=== PATIENT | male | born 1965 | race Caucasian/White ===

== ENCOUNTER → 2020-03-07 08:11 | Outpatient (BNVA) | payer OTHER, SELFPAY | PROVIDERS: Visit Provider Nurse Practitioner Family | DX: Z76.89 Persons encountering health services in other specified circumstances (principal) ==

== ENCOUNTER → 2020-03-17 11:04 | Outpatient (BNVA) | payer OTHER, SELFPAY | PROVIDERS: PCP Internal Medicine; Referring Provider Internal Medicine; Visit Provider Internal Medicine Endocrinology, Diabetes & Metabolism | DX: E11.65 Type 2 diabetes mellitus with hyperglycemia (principal); E11.21 Type 2 diabetes mellitus with diabetic nephropathy; E11.42 Type 2 diabetes mellitus with diabetic polyneuropathy; Z79.4 Long term (current) use of insulin; E78.5 Hyperlipidemia, unspecified; I10 Essential (primary) hypertension; E55.9 Vitamin D deficiency, unspecified | CPT/HCPCS: 82947; 99212 ==

== ENCOUNTER → 2020-05-16 08:31 | Outpatient (BNVA) | payer OTHER, SELFPAY | PROVIDERS: PCP Internal Medicine; Visit Provider Nurse Practitioner Family | DX: Z13.89 Encounter for screening for other disorder (principal) | CPT/HCPCS: 99212 ==

== ENCOUNTER → 2020-08-09 09:31 | Outpatient (BNVA) | payer OTHER, SELFPAY | PROVIDERS: PCP Internal Medicine; Visit Provider Dietitian, Registered | DX: E11.21 Type 2 diabetes mellitus with diabetic nephropathy (principal) | CPT/HCPCS: 97803 ==

== ENCOUNTER 2020-08-15 08:50 | Outpatient (REF) | payer OTHER, SELFPAY ==
[2020-08-15 10:33] LABS: MANUAL DIFF FLAG NO
[2020-08-15 10:50] LABS: Basophils Percent Auto 0.3 % (0-2); Eosinophils Absolute Auto 0.1 X10*3/uL (0.0-0.4); Eosinophils Percent Auto 0.9 % (0-4); Hematocrit 41.2 % (42-52); Hemoglobin 13.4 g/dl (14.0-18.0); Imm Gran Abs Auto 0.03 X10*3/uL (0.00-0.03); Imm Gran Pct Auto 0.4 % (0.0-0.4); Lymphocytes Absolute Auto 1.9 X10*3/uL (1.2-4.9); Lymphocytes Percent Auto 24.3 % (20-40); Mean Corpuscular HGB Conc 32.5 g/dl (31.0-36.0); Mean Corpuscular Hemoglobin 28.7 pg (27.0-33.0); Mean Corpuscular Volume 88.2 fL (80-98); Mean Platelet Volume 10.5 fL (9.4-12.4); Monocytes Absolute Auto 0.4 X10*3/uL (0.1-1.2); Monocytes Percent Auto 5.3 % (2-11); Neutrophils Absolute Auto 5.2 X10*3/uL (2.0-8.3); Neutrophils Percent Auto 68.8 % (45-73); Platelet Count 156 X10*3/uL (160-400); Red Blood Count 4.67 X10*6/uL (4.60-5.80); Red Cell Distribution Width 13.2 % (11.0-16.0); White Blood Count 7.6 X10*3/uL (4.8-10.8)
[2020-08-15 10:56] LABS: Estimated Average Glucose 174 mg/dL; Hemoglobin A1c % 7.7 %
[2020-08-15 11:08] LABS: Alanine Aminotransferase 24 U/L (0-40); Albumin Level 3.7 g/dL (3.5-5.0); Alkaline Phosphatase 105 U/L (39-117); Anion Gap 13 (12-20); Aspartate Amino Transferase 19 U/L (5-37); Bilirubin Total 0.9 mg/dL (0.0-1.0); Blood Urea Nitrogen 18 mg/dL (9-16); Calcium 9.4 mg/dL (8.4-10.2); Carbon Dioxide 26 mmol/L (22-29); Chloride 104 mmol/L (96-108); Cholesterol 167 mg/dL; Estimated Glomerular Filt Rate > 60; Glucose Random 148 mg/dL (60-115); HDL Cholesterol 35 mg/dL; LDL Cholesterol Calculated 108 mg/dl; Potassium 3.9 mmol/L (3.3-5.1); Sodium 139 mmol/L (135-145); Total Protein 7.8 g/dL (6.5-8.0); Triglycerides 122 mg/dL
[2020-08-15 11:27] LABS: Vitamin B12 466 pg/mL (200-900)
[2020-08-15 11:29] LABS: Vitamin D 25-OH Total 21.4 ng/mL (>30)
[2020-08-15 11:50] LABS: Creatinine Urine 145.47 mg/dL; Microalbum/Creatinine Ratio Ur 47.4 ug/mg cr
[2020-08-16 12:44] LABS: LDL Cholesterol Direct 115 mg/dL (<100)
== END 2020-08-15 08:51 | disposition home or self-care (01) ==
LOC: HO.LAB 08:50
PROVIDERS: Absent Provider Internal Medicine Endocrinology, Diabetes & Metabolism; PCP Internal Medicine; Visit Provider Nurse Practitioner Family
DX: E11.65 Type 2 diabetes mellitus with hyperglycemia (principal); E11.42 Type 2 diabetes mellitus with diabetic polyneuropathy; E11.21 Type 2 diabetes mellitus with diabetic nephropathy; I10 Essential (primary) hypertension; E78.5 Hyperlipidemia, unspecified; E66.01 Morbid (severe) obesity due to excess calories; E55.9 Vitamin D deficiency, unspecified; G47.33 Obstructive sleep apnea (adult) (pediatric); Z79.4 Long term (current) use of insulin; Z79.899 Other long term (current) drug therapy
CPT/HCPCS: 99213; 36415; 80053; 80061; 82043; 82306; 82607; 82947; 83036; 83721; 85025; 99212

== ENCOUNTER → 2020-09-06 09:36 | Outpatient (BNVA) | payer OTHER, SELFPAY | PROVIDERS: PCP Internal Medicine; Visit Provider Dietitian, Registered | DX: E11.21 Type 2 diabetes mellitus with diabetic nephropathy (principal) | CPT/HCPCS: 97803 ==

== ENCOUNTER → 2020-11-16 14:32 | Outpatient (BNVA) | payer OTHER, SELFPAY | PROVIDERS: PCP Internal Medicine; Visit Provider Dietitian, Registered | DX: E11.21 Type 2 diabetes mellitus with diabetic nephropathy (principal) | CPT/HCPCS: 97803 ==

== ENCOUNTER → 2021-01-18 08:56 | Outpatient (BNVA) | payer OTHER, SELFPAY | PROVIDERS: PCP Internal Medicine; Visit Provider Dietitian, Registered | DX: E11.21 Type 2 diabetes mellitus with diabetic nephropathy (principal) | CPT/HCPCS: 97803 ==

== ENCOUNTER → 2021-01-22 14:08 | Outpatient (BNVA) | payer OTHER, SELFPAY | PROVIDERS: PCP Internal Medicine; Visit Provider Nurse Practitioner Gerontology | DX: E11.65 Type 2 diabetes mellitus with hyperglycemia (principal); E11.42 Type 2 diabetes mellitus with diabetic polyneuropathy; E11.21 Type 2 diabetes mellitus with diabetic nephropathy; E78.5 Hyperlipidemia, unspecified; I10 Essential (primary) hypertension; Z79.4 Long term (current) use of insulin; E66.01 Morbid (severe) obesity due to excess calories; E55.9 Vitamin D deficiency, unspecified; B35.9 Dermatophytosis, unspecified | CPT/HCPCS: 82947; 83036; 99212 ==

== ENCOUNTER → 2021-04-20 09:21 | Outpatient (BNVA) | payer OTHER, SELFPAY | PROVIDERS: PCP Internal Medicine; Visit Provider Dietitian, Registered | DX: E11.21 Type 2 diabetes mellitus with diabetic nephropathy (principal) | CPT/HCPCS: 97803 ==

== ENCOUNTER → 2021-06-28 09:31 | Outpatient (BNVA) | payer OTHER, SELFPAY | PROVIDERS: PCP Internal Medicine; Visit Provider Nurse Practitioner Gerontology | DX: E11.65 Type 2 diabetes mellitus with hyperglycemia (principal); E11.42 Type 2 diabetes mellitus with diabetic polyneuropathy; E11.21 Type 2 diabetes mellitus with diabetic nephropathy; E78.5 Hyperlipidemia, unspecified; E55.9 Vitamin D deficiency, unspecified; E66.01 Morbid (severe) obesity due to excess calories; I10 Essential (primary) hypertension; Z79.4 Long term (current) use of insulin; Z68.43 Body mass index [BMI] 50.0-59.9, adult | CPT/HCPCS: 82947; 83036; 99212 ==

== ENCOUNTER → 2021-07-17 11:37 | Outpatient (BNVA) | payer OTHER, SELFPAY | PROVIDERS: PCP Internal Medicine; Referring Provider Internal Medicine; Visit Provider Nurse Practitioner Family | DX: Z13.89 Encounter for screening for other disorder (principal) ==

== ENCOUNTER → 2021-07-20 10:45 | Outpatient (BNVA) | payer OTHER, SELFPAY | PROVIDERS: PCP Internal Medicine; Visit Provider Dietitian, Registered | DX: E11.21 Type 2 diabetes mellitus with diabetic nephropathy (principal); Z71.3 Dietary counseling and surveillance | CPT/HCPCS: 97803 ==

== ENCOUNTER → 2021-08-31 10:29 | Outpatient (BNVA) | payer OTHER, SELFPAY | PROVIDERS: PCP Internal Medicine; Visit Provider Dietitian, Registered | DX: E11.21 Type 2 diabetes mellitus with diabetic nephropathy (principal) | CPT/HCPCS: 97803 ==

== ENCOUNTER → 2021-10-16 10:32 | Outpatient (BNVA) | payer OTHER, SELFPAY | PROVIDERS: PCP Internal Medicine; Visit Provider Nurse Practitioner Family | DX: G47.33 Obstructive sleep apnea (adult) (pediatric) (principal); E66.01 Morbid (severe) obesity due to excess calories; Z68.35 Body mass index [BMI] 35.0-35.9, adult | CPT/HCPCS: 99212 ==

== ENCOUNTER → 2021-10-23 11:04 | Outpatient (BNVA) | payer OTHER, SELFPAY | PROVIDERS: PCP Internal Medicine; Visit Provider Dietitian, Registered | DX: E11.21 Type 2 diabetes mellitus with diabetic nephropathy (principal) | CPT/HCPCS: 97803 ==

== ENCOUNTER 2022-01-28 10:41 | Outpatient (REF) | payer OTHER, SELFPAY ==
[2022-01-28 11:52] LABS: Estimated Average Glucose 252 mg/dL; Hemoglobin A1c % 10.4 %
[2022-01-28 12:24] LABS: Cholesterol 158 mg/dL; Glucose Fasting 220 mg/dL (60-99); HDL Cholesterol 39 mg/dL; LDL Cholesterol Calculated 90 mg/dl; Triglycerides 147 mg/dL
== END 2022-01-28 10:42 | disposition home or self-care (01) ==
LOC: HO.LAB 10:41
PROVIDERS: PCP Internal Medicine; Visit Provider Internal Medicine
DX: E78.5 Hyperlipidemia, unspecified (principal); E11.65 Type 2 diabetes mellitus with hyperglycemia
CPT/HCPCS: 36415; 80061; 82947; 83036

== ENCOUNTER 2022-07-29 16:45 | Outpatient (REF) | payer OTHER, SELFPAY ==
[2022-07-29 17:23] LABS: MANUAL DIFF FLAG NO
[2022-07-29 18:00] LABS: Basophils Percent Auto 0.2 % (0-2); Eosinophils Percent Auto 0.4 % (0-4); Hematocrit 45.2 % (42.0-52.0); Hemoglobin 14.7 g/dl (14.0-18.0); Imm Gran Abs Auto 0.03 X10*3/uL (0.00-0.03); Imm Gran Pct Auto 0.3 % (0.0-0.4); Lymphocytes Absolute Auto 2.9 X10*3/uL (1.2-4.9); Lymphocytes Percent Auto 26.4 % (20-40); Mean Corpuscular HGB Conc 32.5 g/dl (31.0-36.0); Mean Corpuscular Hemoglobin 29.7 pg (27.0-33.0); Mean Corpuscular Volume 91.3 fL (80.0-98.0); Mean Platelet Volume 10.5 fL (9.4-12.4); Monocytes Absolute Auto 0.6 X10*3/uL (0.1-1.2); Monocytes Percent Auto 5.4 % (2-11); Neutrophils Absolute Auto 7.3 x10*3/uL (2.0-8.3); Neutrophils Percent Auto 67.3 % (45-73); Platelet Count 162 X10*3/uL (160-400); Red Blood Count 4.95 X10*6/uL (4.60-5.80); Red Cell Distribution Width 13.1 % (11.0-16.0); White Blood Count 10.8 X10*3/uL (4.8-10.8)
[2022-07-29 18:36] LABS: Alanine Aminotransferase 21 U/L (0-40); Albumin Level 3.7 g/dL (3.5-5.0); Alkaline Phosphatase 104 U/L (39-117); Anion Gap 13 (12-20); Aspartate Amino Transferase 23 U/L (5-37); Bilirubin Total 1.1 mg/dL (0.0-1.0); Blood Urea Nitrogen 13 mg/dL (9-16); Calcium 8.9 mg/dL (8.4-10.2); Carbon Dioxide 27 mmol/L (22-29); Chloride 105 mmol/L (96-108); Cholesterol 147 mg/dL; Estimated Glomerular Filt Rate > 60; Glucose Fasting 124 mg/dL (60-99); HDL Cholesterol 41 mg/dL; LDL Cholesterol Calculated 88 mg/dl; Potassium 4.2 mmol/L (3.3-5.1); Sodium 141 mmol/L (135-145); Total Protein 8.1 g/dL (6.5-8.0); Triglycerides 92 mg/dL
[2022-07-29 18:57] LABS: Microalbum/Creatinine Ratio Ur 15.8 ug/mg cr
[2022-07-30 05:36] LABS: Estimated Average Glucose 252 mg/dL; Hemoglobin A1c % 10.4 %
== END 2022-07-29 16:46 | disposition home or self-care (01) ==
LOC: HO.LAB 16:45
PROVIDERS: PCP Internal Medicine; Visit Provider Internal Medicine
DX: E11.69 Type 2 diabetes mellitus with other specified complication (principal); D64.9 Anemia, unspecified; N28.9 Disorder of kidney and ureter, unspecified; E78.5 Hyperlipidemia, unspecified; E66.01 Morbid (severe) obesity due to excess calories
CPT/HCPCS: 36415; 80053; 80061; 82043; 83036; 85025

== ENCOUNTER 2022-10-30 10:27 | Outpatient (AMB) | payer OTHER, SELFPAY ==
--- NOTE | 2022-10-30 10:29 | A.OFFPC_ITS ---
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 Allergies exenatide [Bydureon] Allergy (Unknown, Verified 10/30/22 10:29) welts, vomiting iodine Allergy (Unknown, Verified 10/30/22 10:29) vomiting lisinopril Allergy (Unknown, Verified 10/30/22 10:29) cough vancomycin [VANCOMYCIN] Allergy (Unknown, Verified 10/30/22 10:29) UNKNOWN Insulin Allergy (Unknown, Uncoded 10/16/21 10:41) swelling Medication List - Last Reconciled 10/30/22 by Ernesto Salter MD amlodipine 10 mg PO DAILY atorvastatin 80 mg PO BEDTIME 30 days blood sugar diagnostic (FreeStyle Lite Strips) As directed three times a day cephalexin 500 mg PO TID cholecalciferol (vitamin D3) (Vitamin D3) 125 mcg PO DAILY dulaglutide (Trulicity) 1.5 mg (0.5 mL) topical QWEEK flash glucose scanning reader ([employer] Caroline 14 Day [place]) As directed flash glucose sensor (FreeStyle Caroline 14 Day Sensor kit) 1 ea topical Q2W insulin degludec (Tresiba FlexTouch U-200 insulin) 30 units (0.15 mL) subcut BEDTIME 30 days lancets (FreeStyle Lancets) 4 times a day losartan-hydrochlorothiazide 100-12.5 mg 1 tab PO DAILY metformin 500 mg (5 mL) PO ONCE pen needle, diabetic (BD Ultra-Fine Isabel Pen Needle) As directed four times a day Tobacco use date assessed: 04/30/22 Dental Screening Dental Screen Date: 10/30/22 Did you have a dental visit in the last 12 months?: Yes Did you have a dental problem in the last 6 months where you did not have access to dental care?: No Was dental information given to patient?: Patient has dentist HPI 3 month f/u HPI Details HTN Hyperlip and poorly controlled DM; discharged from our endo service [facility] Medical History Diabetes mellitus Diabetes type 2, uncontrolled Diabetic nephropathy associated with type 2 diabetes mellitus Diabetic polyneuropathy associated with type 2 diabetes mellitus Dyslipidemia Hypertension skilled nursing (current) use of insulin Microalbuminuria Morbid obesity due to excess calories Vitamin D deficiency Surgical History No pertinent past surgical history Family History Father CVD (cardiovascular disease) Mother No problems noted. Brother Past heart attack Social History Household Members: None Housing: Apartment Alcohol intake: never Patient Tobacco Use Status: Never used Tobacco e-Cigarette/Vaping Use: Never Used Second Hand Smoke Exposure: No service: No Current occupational status: unemployed and disabled Cognitive needs: Yes (cane) Hearing needs: No Vision needs: Yes (reading) Questionnaire PHQ-9 Over the last 2 weeks, how often have you been bothered by any of the following problems? Depression Screening Interpretation: Negative Source: Developed by Drs. Huseyin Holt, Alyson Banda, Colin Ragland and colleagues, with an educational madeline from [employer]. Thrive Questionnaire Date Thrive assessed: 04/30/22 Currently or been in a relationship where the following occur: no concerns reported EMMANUELLE-7 AMB Questionnaire EMMANUELLE-7 Date EMMANUELLE - 7 assessed: 04/30/22 Source: Developed by Drs. Huseyin Holt, Alyson Banda, Colin Ragland and colleagues, with an educational madeline from [employer]. Review of Systems Const Denies chills, Denies headache(s) and Denies weight loss ENT Denies headache(s) Card Denies chest pain, Denies syncope, Denies irregular heart rhythm and Denies dyspnea Resp Denies chest congestion, Denies cough and Denies dyspnea GI Denies abdominal pain, Denies change in stool character, Denies nausea and Denies vomiting Musc Denies deformity and Denies joint swelling Neuro Denies syncope and Denies headache(s) Physical exam (Primary Care) Vital Signs: Last Vital Signs Pulse 86 10/30/22 10:30 BP 136/80 10/30/22 10:30 Pulse Ox 97 10/30/22 10:30 BMI result Body Mass Index 53.0 morbid obesity BMI Assessment/Plan discussion: High BMI High, discussed plan: lifestyle, weight reduction, dietary and physical activity Tobacco/Smoking Status: Tobacco use Status Tobacco use date assessed 04/30/22 10/30/22 10:29 Patient Tobacco Use Status Never used Tobacco 10/30/22 10:29 e-Cigarette/Vaping Use Never Used 10/30/22 10:29 Depression Screening Interpretation: Negative Thrive Assessment: Date of Thrive Assessment Date Thrive assessed 04/30/22 10/30/22 10:29 Currently or been in a relationship where the following occur: no concerns reported Const General: cooperative and no acute distress Resp Effort & Inspection: normal respiratory effort Auscultation: clear to auscultation bilaterally Percussion: percussion normal Cardio Jugular venous distension: no JVD Rate: regular rate Rhythm: regular rhythm GI Inspection: Yes normal to inspection Results AMB Hemoglobin A1c AMB Hemoglobin A1c 10.4 % Last Edit by Arturo Fuentes CMA on 10/30/22 10 :50 Results Reviewed Results Reviewed: Laboratory Last Values Hgb A1c (Clinic) 10.4 % (4.0-6.0) H 10/30/22 10:49 Assessment and Plan Assessment & Plan (1) Diabetes type 2, uncontrolled: Code(s): E11.65 - Type 2 diabetes mellitus with hyperglycemia Plan: ref endo (2) Dyslipidemia: Code(s): E78.5 - Hyperlipidemia, unspecified Plan: stable; same rx (3) Hypertension: Code(s): I10 - Essential (primary) hypertension Plan: stable; same rx Orders: Orders Comprehensive [place]. Panel Fast Today N28.9 - Disorder of kidney and ureter, unspecified Hemoglobin A1c Today R73.9 - Hyperglycemia, unspecified Lipid Panel Today E78.5 - Hyperlipidemia, unspecified Microalbumin, Random (w Creat) Today E11.69 - Type 2 diabetes mellitus with other specified complication, E66.01 - Morbid (severe) obesity due to excess calories Complete Blood Count Auto Diff Today D64.9 - Anemia, unspecified AMB Hemoglobin A1c Today E11.21 - Type 2 diabetes mellitus with diabetic nephropathy, E11.65 - Type 2 diabetes mellitus with hyperglycemia Referrals Endocrinology Referral E11.9 - Type 2 diabetes mellitus without complications Medications: Refilled dulaglutide (Trulicity) 1.5 mg (0.5 mL) topical QWEEK 2 mL 2RF E11.65 - Type 2 diabetes mellitus with hyperglycemia Coding Level of Care Code Est Pt Level 4 (14984) Diagnoses Diabetes type 2, uncontrolled E11.65 Dyslipidemia E78.5 Hypertension I10
[2022-10-30 10:30] VITALS: BP 136/80; PULSE 86; O2SAT 97; BMI 53.0
== END 2022-10-30 11:08 | disposition home or self-care (01) ==
PROVIDERS: PCP Internal Medicine; Visit Provider Internal Medicine
DX: E11.65 Type 2 diabetes mellitus with hyperglycemia (principal); E78.5 Hyperlipidemia, unspecified; I10 Essential (primary) hypertension; E11.21 Type 2 diabetes mellitus with diabetic nephropathy
CPT/HCPCS: 83036; 99214

== ENCOUNTER 2023-01-30 10:37 | Outpatient (AMB) | payer OTHER, SELFPAY ==
[2023-01-30 10:39] VITALS: BP 156/90; PULSE 100; O2SAT 98; BMI 50.8
--- NOTE | 2023-01-30 10:39 | A.OFFPC_ITS ---
Vital Signs 01/30/23 10:39 Height 5 ft 9 in Weight 344 lb BMI 50.8 BP 156/90 H Blood Pressure Location Lt brachial Position Sitting Pulse 100 Pulse Source Pulse Oximeter Pulse Oximetry (%) 98 Oxygen Delivery Method Room Air Intake Visit Reasons: 3 month f/u Allergies exenatide [Bydureon] Allergy (Unknown, Verified 01/30/23 10:40) welts, vomiting iodine Allergy (Unknown, Verified 01/30/23 10:40) vomiting lisinopril Allergy (Unknown, Verified 01/30/23 10:40) cough vancomycin [VANCOMYCIN] Allergy (Unknown, Verified 01/30/23 10:40) UNKNOWN Insulin Allergy (Unknown, Uncoded 01/30/23 10:40) swelling Medication List - Last Reconciled 01/30/23 by Ernesto Salter MD amlodipine 10 mg PO DAILY atorvastatin 80 mg PO BEDTIME 30 days blood sugar diagnostic (FreeStyle Lite Strips) As directed three times a day cholecalciferol (vitamin D3) (Vitamin D3) 125 mcg PO DAILY dulaglutide (Trulicity) 1.5 mg (0.5 mL) topical QWEEK flash glucose scanning reader ([employer]Style Caroline 14 Day [place]) As directed flash glucose sensor (FreeStyle Caroline 14 Day Sensor kit) 1 ea topical Q2W insulin degludec (Tresiba FlexTouch U-200 insulin) 30 units (0.15 mL) subcut BEDTIME 30 days lancets (FreeStyle Lancets) 4 times a day losartan-hydrochlorothiazide 100-12.5 mg 1 tab PO DAILY pen needle, diabetic (BD Ultra-Fine Isabel Pen Needle) As directed four times a day Tobacco use date assessed: 04/30/22 Dental Screening Dental Screen Date: 01/30/23 Did you have a dental visit in the last 12 months?: Yes Did you have a dental problem in the last 6 months where you did not have access to dental care?: No Was dental information given to patient?: Patient has dentist HPI 3 month f/u HPI Details DM HTN and hyperlipidemia; doing well; due for labs [facility] Medical History (Updated 01/30/23 @ 10:59 by Ernesto Salter MD) Diabetic polyneuropathy associated with type 2 diabetes mellitus Morbid obesity due to excess calories Vitamin D deficiency Hypertension Dyslipidemia Diabetic nephropathy associated with type 2 diabetes mellitus [facility] (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 Brother Past heart attack Social History Household Members: None Housing: Apartment Alcohol intake: never Patient Tobacco Use Status: Never used Tobacco e-Cigarette/Vaping Use: Never Used Second Hand Smoke Exposure: No service: No Current occupational status: unemployed and disabled Cognitive needs: Yes (cane) Hearing needs: No Vision needs: Yes (reading) Questionnaire PHQ-9 Over the last 2 weeks, how often have you been bothered by any of the following problems? 1. Little interest or pleasure in doing things: not at all 2. Feeling down, depressed, or hopeless: not at all 3. Trouble falling or staying asleep, or sleeping too much: not at all 4. Feeling tired or having little energy: not at all 5. Poor appetite or overeating: not at all 6. Feeling bad about yourself - or that you are a failure or have let yourself or your family down: not at all 7. Trouble concentrating on things, such as reading the newspaper or watching television: not at all 8. Moving or speaking so slowly that other people could have noticed. Or the opposite - being so fidgety or restless that you have been moving around a lot more than usual: not at all 9. Thoughts that you would be better off or of hurting yourself in some way: not at all Total score: 0 Depression Screening Interpretation: Negative Depression Screening Done: Yes Source: Developed by DrsNiall Holt, Alyson Banda, Coiln Ragland and colleagues, with an educational madeline from [employer]. Thrive Questionnaire Date Thrive assessed: 04/30/22 AUDIT C Alcohol Use Questionnaire (AUDIT-C) 1. How often do you have a drink containing alcohol?: Never Total Score: 0 Score Reviewed/Action Taken: Yes EMMANUELLE-7 AMB Questionnaire EMMANUELLE-7 Date EMMANUELLE - 7 assessed: 04/30/22 Source: Developed by Drs. Huseyin Holt, Alyson Banda, Colin Ragland and colleagues, with an educational madeline from [employer]. Review of Systems Const Denies chills, Denies headache(s) and Denies weight loss ENT Denies headache(s) Card Denies chest pain, Denies syncope, Denies irregular heart rhythm and Denies dyspnea Resp Denies chest congestion, Denies cough and Denies dyspnea GI Denies abdominal pain, Denies change in stool character, Denies nausea and Denies vomiting Musc Denies deformity and Denies joint swelling Neuro Denies syncope and Denies headache(s) Physical exam (Primary Care) Vital Signs: Last Vital Signs Pulse 100 01/30/23 10:39 BP 156/90 H 01/30/23 10:39 Pulse Ox 98 01/30/23 10:39 Oxygen Delivery Method Room Air 01/30/23 10:39 BMI result Body Mass Index 50.8 Tobacco/Smoking Status: Tobacco use Status Tobacco use date assessed 04/30/22 01/30/23 10:41 Patient Tobacco Use Status Never used Tobacco 01/30/23 10:41 e-Cigarette/Vaping Use Never Used 01/30/23 10:41 PHQ-9: PHQ-9 Score PHQ-9: Total score 0 01/30/23 10:41 Depression Screening Interpretation: Negative Thrive Assessment: Date of Thrive Assessment Date Thrive assessed 04/30/22 01/30/23 10:41 Const General: cooperative, comfortable, no acute distress and alert Neck Neck: Yes no lymphadenopathy Thyroid: Thyroid normal Resp Effort & Inspection: normal respiratory effort Auscultation: clear to auscultation bilaterally Percussion: percussion normal Cardio Jugular venous distension: no JVD Palpation: normal PMI Rate: regular rate Rhythm: regular rhythm Heart sounds: S1 normal heart sound present and S2 normal heart sound present GI Inspection: Yes normal to inspection Palpation (GI): No hepatosplenomegaly present Skin General skin exam: no rashes or lesions noted Extrem General: Yes no clubbing, cyanosis or edema Assessment and Plan Assessment & Plan (1) Hypertension: Code(s): I10 - Essential (primary) hypertension Plan: stable; same rx (2) Dyslipidemia: Code(s): E78.5 - Hyperlipidemia, unspecified Plan: stable; same rx (3) Diabetes mellitus with coincident hypertension: Code(s): E11.9 - Type 2 diabetes mellitus without complications; I10 - Essential (primary) hypertension Plan: stable; same rx Orders: Orders Lipid Panel Today E78.5 - Hyperlipidemia, unspecified Comprehensive [place]. Panel Fast Today N28.9 - Disorder of kidney and ureter, unsp ecified Complete Blood Count Auto Diff Today D64.9 - Anemia, unspecified Microalbumin, Random (w Creat) Today E11.69 - Type 2 diabetes mellitus with other specified complication, E66.01 - Morbid (severe) obesity due to excess calories AMB Hemoglobin A1c Today E11.65 - Type 2 diabetes mellitus with hyperglycemia Thyroid Stimulating Hormone Today E03.9 - Hypothyroidism, unspecified Hemoglobin A1c Today R73.9 - Hyperglycemia, unspecified Medications: Refilled flash glucose sensor (FreeStyle Caroline 14 Day Sensor kit) 1 ea topical Q2W 2 ea 11RF Coding Level of Care Code Est Pt Level 4 (50288) Diagnoses Hypertension I10 Dyslipidemia E78.5 Diabetes mellitus with coincident hypertension E11.9; I10
== END 2023-01-30 11:03 | disposition home or self-care (01) ==
PROVIDERS: PCP Internal Medicine; Visit Provider Internal Medicine
DX: I10 Essential (primary) hypertension (principal); E11.65 Type 2 diabetes mellitus with hyperglycemia; E66.01 Morbid (severe) obesity due to excess calories; Z68.43 Body mass index [BMI] 50.0-59.9, adult; E78.5 Hyperlipidemia, unspecified
CPT/HCPCS: 83036; 99214

== ENCOUNTER 2023-04-24 11:06 | Outpatient (AMB) | payer OTHER, SELFPAY ==
[2023-04-24 11:14] VITALS: BP 166/90; PULSE 85; O2SAT 98; BMI 52.0
--- NOTE | 2023-04-24 11:14 | MHC.PC.OV ---
Vital Signs 04/24/23 11:14 Height 5 ft 9 in Weight 352 lb BMI 52.0 BP 166/90 H Blood Pressure Location Lt brachial Position Sitting Pulse 85 Pulse Source Pulse Oximeter Pulse Oximetry (%) 98 Oxygen Delivery Method Room Air Intake Visit Reasons: 3 mth f/u Utility System Operator Required: No Gatehouse Attendant: Not Required per policy Accompanied by: Self / Same As Patient Allergies exenatide [Bydureon] Allergy (Unknown, Verified 04/24/23 11:14) welts, vomiting iodine Allergy (Unknown, Verified 04/24/23 11:14) vomiting lisinopril Allergy (Unknown, Verified 04/24/23 11:14) cough vancomycin [VANCOMYCIN] Allergy (Unknown, Verified 04/24/23 11:14) UNKNOWN Insulin Allergy (Unknown, Uncoded 04/24/23 11:14) swelling Medication List - Last Reconciled 04/25/23 by Ernesto Salter MD amlodipine 10 mg PO DAILY atorvastatin 80 mg PO DAILY blood sugar diagnostic (FreeStyle Lite Strips) As directed three times a day cholecalciferol (vitamin D3) (Vitamin D3) 125 mcg PO DAILY dulaglutide (Trulicity) 1.5 mg (0.5 mL) topical QWEEK flash glucose scanning reader ([employer] Caroline 14 Day [place]) As directed flash glucose sensor (FreeStyle Caroline 14 Day Sensor kit) 1 ea topical Q2W insulin degludec (Tresiba FlexTouch U-200 insulin) 30 units (0.15 mL) subcut BEDTIME 30 days lancets (FreeStyle Lancets) 4 times a day losartan-hydrochlorothiazide 100-12.5 mg 1 tab PO DAILY pen needle, diabetic (BD Ultra-Fine Isabel Pen Needle) As directed four times a day Tobacco use date assessed: 04/24/23 Dental Screening Dental Screen Date: 04/24/23 Did you have a dental visit in the last 12 months?: Yes Did you have a dental problem in the last 6 months where you did not have access to dental care?: No Was dental information given to patient?: Patient has dentist HPI 3 mth f/u HPI Details HTN hyperlip and DM on rx; stable and compliant [facility] Medical History Diabetic polyneuropathy associated with type 2 diabetes mellitus Morbid obesity due to excess calories Vitamin D deficiency Hypertension Dyslipidemia Diabetic 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 Brother Past heart attack Social History Household Members: None Housing: Apartment Alcohol intake: never Patient Tobacco Use Status: Never used Tobacco e-Cigarette/Vaping Use: Never Used Second Hand Smoke Exposure: No service: No Current occupational status: unemployed and disabled Cognitive needs: Yes (cane) Hearing needs: No Vision needs: Yes (reading) Questionnaire PHQ-9 Over the last 2 weeks, how often have you been bothered by any of the following problems? 1. Little interest or pleasure in doing things: not at all 2. Feeling down, depressed, or hopeless: not at all 3. Trouble falling or staying asleep, or sleeping too much: not at all 4. Feeling tired or having little energy: not at all 5. Poor appetite or overeating: not at all 6. Feeling bad about yourself - or that you are a failure or have let yourself or your family down: not at all 7. Trouble concentrating on things, such as reading the newspaper or watching television: not at all 8. Moving or speaking so slowly that other people could have noticed. Or the opposite - being so fidgety or restless that you have been moving around a lot more than usual: not at all 9. Thoughts that you would be better off or of hurting yourself in some way: not at all Total score: 0 Depression Screening Interpretation: Negative Depression Screening Done: Yes Source: Developed by Drs. Huseyin Holt, Alyson Banda, Colin Ragland and colleagues, with an educational madeline from [employer]. Thrive Questionnaire Date Thrive assessed: 04/24/23 I am a: Patient What is your living situation today?: I have a steady place to live Within the past 12 months, did the food you bought not last and you didn't have the money to get more?: Never true Within the past 12 months, did you worry whether your food would run out before you got money to buy more?: Never true Do you have trouble paying for medicines?: No Do you have trouble getting transportation to medical appointments?: No Do you have trouble paying your heating and electricity bill?: No Do you have trouble taking care of your child, family member or friend?: No Do you have trouble with day-to-day activities such as bathing, preparing meals, shopping, managing finances, etc.?: No Are you currently unemployed and looking for a job?: No Are you interested in more education?: No Please select the resources that you would like help with: None THRIVE Score: 0 AUDIT C Alcohol Use Questionnaire (AUDIT-C) 1. How often do you have a drink containing alcohol?: Never Total Score: 0 Score Reviewed/Action Taken: Yes EMMANUELLE-7 AMB Questionnaire EMMANUELLE-7 Date EMMANUELLE - 7 assessed: 05/08/22 Feeling nervous, anxious, or on edge: 0 = Not at all Not being able to stop or control worryin = Not at all Worrying too much about different things: 0 = Not at all Trouble relaxin = Not at all Being so restless that it is hard to sit still: 0 = Not at all Becoming easily annoyed or irritable: 0 = Not at all Feeling afraid as if something awful might happen: 0 = Not at all Total EMMANUELLE-7 score (0-4 normal; 5-9 mild; 10-14 moderate; 15-21 severe): 0 Source: Developed by Drs. Huseyin Holt, Alyson Banda, Colin Ragland and colleagues, with an educational madeline from [employer]. Review of Systems Const Denies chills, Denies headache(s) and Denies weight loss ENT Denies headache(s) Card Denies chest pain, Denies syncope, Denies irregular heart rhythm and Denies dyspnea Resp Denies chest congestion, Denies cough and Denies dyspnea GI Denies abdominal pain, Denies change in stool character, Denies nausea and Denies vomiting Musc Denies deformity and Denies joint swelling Neuro Denies syncope and Denies headache(s) Physical exam (Primary Care) Vital Signs: Last Vital Signs Pulse 85 04/24/23 11:14 BP 166/90 H 04/24/23 11:14 Pulse Ox 98 04/24/23 11:14 Oxygen Delivery Method Room Air 04/24/23 11:14 BMI result Body Mass Index 52.0 Tobacco/Smoking Status: Tobacco use Status Tobacco use date assessed 04/24/23 04/24/23 11:15 Patient Tobacco Use Status Never used Tobacco 04/24/23 11:15 e-Cigarette/Vaping Use Never Used 04/24/23 11:15 PHQ-9: PHQ-9 Score PHQ-9: Total score 0 04/24/23 13:19 Depression Screening Interpretation: Negative Thrive Assessment: Date of Thrive Assessment Date Thrive assessed 04/24/23 04/24/23 11:15 Const General: cooperative, comfortable, no acute distress and alert Neck Neck: Yes no lymphadenopathy Thyroid: Thyroid normal Resp Effort & Inspection: normal respiratory effort Auscultation: clear to auscultation bilaterally Percussion: percussion normal Cardio Jugular venous distension: no JVD Palpation: normal PMI Rate: regular rate Rhythm: regular rhythm Heart sounds: S1 normal heart sound present and S2 normal heart sound present GI Inspection: Yes normal to inspection Palpation (GI): No hepatosplenomegaly present Skin General skin exam: no rashes or lesions noted Extrem General: Yes no clubbing, cyanosis or edema Results AMB Hemoglobin A1c AMB Hemoglobin A1c 10.2 % Last Edit by SOFIA Arana on 04/24/23 11:27 Results Reviewed Results Reviewed: Laboratory Last Values Hgb A1c (Clinic) 10.2 % (4.0-6.0) H 04/24/23 11:16 Assessment and Plan Assessment & Plan (1) Diabetes mellitus with coincident hypertension: Code(s): E11.9 - Type 2 diabetes mellitus without complications; I10 - Essential (primary) hypertension Plan: stable; same rx (2) Hypertension: Code(s): I10 - Essential (primary) hypertension Plan: stable; same rx (3) Dyslipidemia: Code(s): E78.5 - Hyperlipidemia, unspecified Plan: stable; same rx Orders: Orders AMB Hemoglobin A1c 04/24/23 E11.9 - Type 2 diabetes mellitus without complications, I10 - Essential (primary) hypertension Lipid Panel 04/24/23 E78.5 - Hyperlipidemia, unspecified Thyroid Stimulating Hormone 04/24/23 E03.9 - Hypothyroidism, unspecified Complete Blood Count Auto Diff 04/24/23 D64.9 - Anemia, unspecified Testosterone, Free/Total 04/24/23 R68.82 - Decreased libido Comprehensive [place]. Panel Fast Today N28.9 - Disorder of kidney and ureter, unspecified Thyroid Stimulating Hormone Today E03.9 - Hypothyroidism, unspecified Comprehensive [place]. Panel Fast 04/24/23 N28.9 - Disorder of kidney and ureter, unspecified Lipid Panel Today E78.5 - Hyperlipidemia, unspecified Complete Blood Count Auto Diff Today D64.9 - Anemia, unspecified Medications: Refilled flash glucose scanning reader (FreeStyle Caroline 14 Day [place]) As directed 1 ea 0RF E11.65 - Type 2 diabetes mellitus with hyperglycemia flash glucose sensor (FreeStyle Caroline 14 Day Sensor kit) 1 ea topical Q2W 2 ea 11RF Coding Level of Care Code Tele Est Pt Level 4 (80668) Diagnoses Diabetes mellitus with coincident hypertension E11.9; I10 Hypertension I10 Dyslipidemia E78.5
== END 2023-04-24 11:34 | disposition home or self-care (01) ==
PROVIDERS: PCP Internal Medicine; Visit Provider Internal Medicine
DX: E11.9 Type 2 diabetes mellitus without complications (principal); I10 Essential (primary) hypertension
CPT/HCPCS: 83036; 99214

== ENCOUNTER 2023-07-22 13:30 | Outpatient (REF) | payer OTHER, SELFPAY ==
[2023-07-22 13:50] LABS: MANUAL DIFF FLAG NO
[2023-07-22 14:22] LABS: Basophils Percent Auto 0.3 % (0-2); Eosinophils Percent Auto 0.2 % (0-4); Hematocrit 43.5 % (42.0-52.0); Hemoglobin 14.4 g/dl (14.0-18.0); Imm Gran Abs Auto 0.02 X10*3/uL (0.00-0.03); Imm Gran Pct Auto 0.2 % (0.0-0.4); Lymphocytes Absolute Auto 2.4 X10*3/uL (1.2-4.9); Lymphocytes Percent Auto 27.1 % (20-40); Mean Corpuscular HGB Conc 33.1 g/dl (31.0-36.0); Mean Corpuscular Hemoglobin 29.8 pg (27.0-33.0); Mean Corpuscular Volume 90.1 fL (80.0-98.0); Mean Platelet Volume 10.9 fL (9.4-12.4); Monocytes Absolute Auto 0.5 X10*3/uL (0.1-1.2); Neutrophils Absolute Auto 5.7 x10*3/uL (2.0-8.3); Neutrophils Percent Auto 66.2 % (45-73); Platelet Count 146 X10*3/uL (160-400); Red Blood Count 4.83 X10*6/uL (4.60-5.80); Red Cell Distribution Width 13.3 % (11.0-16.0); White Blood Count 8.7 X10*3/uL (4.8-10.8)
[2023-07-22 14:45] LABS: Estimated Average Glucose 229 mg/dL; Hemoglobin A1c % 9.6 % (<6.0)
[2023-07-22 15:18] LABS: Creatinine Urine 264.65 mg/dL; Microalbum/Creatinine Ratio Ur 24.1 ug/mg cr (<30)
[2023-07-22 17:31] LABS: Alanine Aminotransferase 21 U/L (0-40); Albumin Level 3.6 g/dL (3.5-5.0); Alkaline Phosphatase 89 U/L (39-117); Anion Gap 10 (12-20); Aspartate Amino Transferase 22 U/L (5-37); Bilirubin Total 0.8 mg/dL (0.0-1.0); Blood Urea Nitrogen 15 mg/dL (9-16); Calcium 9.5 mg/dL (8.4-10.2); Carbon Dioxide 28 mmol/L (22-29); Chloride 105 mmol/L (96-108); Cholesterol 180 mg/dL (<200); Estimated Glomerular Filt Rate > 60; Glucose Fasting 158 mg/dL (60-99); HDL Cholesterol 40 mg/dL (>40); LDL Cholesterol Calculated 119 mg/dL (<100); Potassium 4.3 mmol/L (3.3-5.1); Sodium 139 mmol/L (135-145); Thyroid Stimulating Hormone 2.51 uIU/mL (0.32-4.0); Total Protein 8.4 g/dL (6.5-8.0); Triglycerides 105 mg/dL (<150)
[2023-07-26 19:09] LABS: Testosterone, Free 44.9 pg/mL (35.0-155.0); Testosterone, Total 362 ng/dL (250-1100)
== END 2023-07-22 13:31 | disposition home or self-care (01) ==
LOC: HO.LAB 13:30
PROVIDERS: PCP Internal Medicine; Visit Provider Internal Medicine
DX: E78.5 Hyperlipidemia, unspecified (principal); N28.9 Disorder of kidney and ureter, unspecified; D64.9 Anemia, unspecified; E11.69 Type 2 diabetes mellitus with other specified complication; E66.01 Morbid (severe) obesity due to excess calories; E03.9 Hypothyroidism, unspecified; R68.82 Decreased libido; E11.65 Type 2 diabetes mellitus with hyperglycemia
CPT/HCPCS: 36415; 80053; 80061; 82043; 82570; 83036; 84402; 84403; 84443; 85025

== ENCOUNTER 2023-07-24 11:30 | Outpatient (AMB) | payer OTHER, SELFPAY ==
[2023-07-24 11:31] VITALS: BP 150/78; PULSE 84; O2SAT 95; BMI 51.7
--- NOTE | 2023-07-24 11:31 | MHC.PC.OV ---
Vital Signs 07/24/23 11:31 Height 5 ft 9 in Weight 350 lb BMI 51.7 BP 150/78 H Blood Pressure Location Lt radial Position Sitting Pulse 84 Pulse Source Pulse Oximeter Pulse Oximetry (%) 95 Oxygen Delivery Method Room Air Intake Visit Reasons: 3mth f/u Student Assistance Counselor Required: No Allergies exenatide [Bydureon] Allergy (Unknown, Verified 04/24/23 11:14) welts, vomiting iodine Allergy (Unknown, Verified 04/24/23 11:14) vomiting lisinopril Allergy (Unknown, Verified 04/24/23 11:14) cough vancomycin [VANCOMYCIN] Allergy (Unknown, Verified 04/24/23 11:14) UNKNOWN Insulin Allergy (Unknown, Uncoded 04/24/23 11:14) swelling Medication List - Last Reconciled 07/25/23 by Ernesto Salter MD amlodipine 10 mg PO DAILY atorvastatin 80 mg PO DAILY blood sugar diagnostic (FreeStyle Lite Strips) As directed three times a day cholecalciferol (vitamin D3) (Vitamin D3) 125 mcg PO DAILY dulaglutide (Trulicity) 1.5 mg (0.5 mL) topical QWEEK flash glucose scanning reader (aCommerceStyle Caroline 14 Day [place]) As directed flash glucose sensor (FreeStyle Caroline 14 Day Sensor kit) 1 ea topical Q2W insulin degludec (Tresiba FlexTouch U-200 insulin) 30 units (0.15 mL) subcut BEDTIME 30 days lancets (FreeStyle Lancets) 4 times a day losartan-hydrochlorothiazide 100-12.5 mg 1 tab PO DAILY pen needle, diabetic (BD Ultra-Fine Isabel Pen Needle) As directed four times a day Tobacco use date assessed: 07/24/23 Dental Screening Dental Screen Date: 04/24/23 HPI 3mth f/u HPI Details htn hyperlip and DM; compliant with meds; improving BS [facility] Medical History Diabetic polyneuropathy associated with type 2 diabetes mellitus Morbid obesity due to excess calories Vitamin D deficiency Hypertension Dyslipidemia Diabetic nephropathy associated with type 2 diabetes mellitus [facility] (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 Brother Past heart attack Social History Household Members: None Housing: Apartment Alcohol intake: never Patient Tobacco Use Status: Never used Tobacco e-Cigarette/Vaping Use: Never Used Second Hand Smoke Exposure: No service: No Current occupational status: unemployed and disabled Cognitive needs: Yes (cane) Hearing needs: No Vision needs: Yes (reading) Questionnaire Thrive Questionnaire Date Thrive assessed: 04/24/23 AUDIT C Alcohol Use Questionnaire (AUDIT-C) 1. How often do you have a drink containing alcohol?: Never Total Score: 0 Score Reviewed/Action Taken: Yes EMMANUELLE-7 AMB Questionnaire EMMANUELLE-7 Date EMMANUELLE - 7 assessed: 07/24/23 Source: Developed by Drs. Huseyin Holt, Alyson Banda, Colin Ragland and colleagues, with an educational madeline from [employer]. Review of Systems Const Denies chills, Denies headache(s) and Denies weight loss ENT Denies headache(s) Card Denies chest pain, Denies syncope, Denies irregular heart rhythm and Denies dyspnea Resp Denies chest congestion, Denies cough and Denies dyspnea GI Denies abdominal pain, Denies change in stool character, Denies nausea and Denies vomiting Musc Denies deformity and Denies joint swelling Neuro Denies syncope and Denies headache(s) Physical exam (Primary Care) Vital Signs: Last Vital Signs Pulse 84 07/24/23 11:31 BP 150/78 H 07/24/23 11:31 Pulse Ox 95 07/24/23 11:31 Oxygen Delivery Method Room Air 07/24/23 11:31 BMI result Body Mass Index 51.7 Tobacco/Smoking Status: Tobacco use Status Tobacco use date assessed 07/24/23 07/24/23 11:32 Patient Tobacco Use Status Never used Tobacco 07/24/23 11:32 e-Cigarette/Vaping Use Never Used 07/24/23 11:32 Thrive Assessment: Date of Thrive Assessment Date Thrive assessed 04/24/23 07/24/23 11:32 Const General: cooperative, comfortable, no acute distress and alert Neck Neck: Yes no lymphadenopathy Thyroid: Thyroid normal Resp Effort & Inspection: normal respiratory effort Auscultation: clear to auscultation bilaterally Percussion: percussion normal Cardio Jugular venous distension: no JVD Palpation: normal PMI Rate: regular rate Rhythm: regular rhythm Heart sounds: S1 normal heart sound present and S2 normal heart sound present GI Inspection: Yes normal to inspection Palpation (GI): No hepatosplenomegaly present Skin General skin exam: no rashes or lesions noted Extrem General: Yes no clubbing, cyanosis or edema Assessment and Plan Assessment & Plan (1) Diabetes mellitus with coincident hypertension: Code(s): E11.9 - Type 2 diabetes mellitus without complications; I10 - Essential (primary) hypertension Plan: stable; same rx (2) Hypertension: Code(s): I10 - Essential (primary) hypertension Plan: stable; same rx (3) Dyslipidemia: Code(s): E78.5 - Hyperlipidemia, unspecified Plan: stable; same rx Coding Level of Care Code Est Pt Level 4 (20155) Diagnoses Diabetes mellitus with coincident hypertension E11.9; I10 Hypertension I10 Dyslipidemia E78.5
== END 2023-07-24 11:45 | disposition home or self-care (01) ==
PROVIDERS: PCP Internal Medicine; Visit Provider Internal Medicine
DX: E11.9 Type 2 diabetes mellitus without complications (principal); I10 Essential (primary) hypertension; E78.5 Hyperlipidemia, unspecified
CPT/HCPCS: 99214

== ENCOUNTER 2023-10-23 09:18 | Outpatient (AMB) | payer OTHER, SELFPAY ==
--- NOTE | 2023-10-23 09:19 | A.OFFPC_ITS ---
Vital Signs 10/23/23 09:21 Height 5 ft 9 in Weight 357 lb BMI 52.7 BP 120/70 Blood Pressure Location Lt brachial Position Sitting Pulse 78 Pulse Source Pulse Oximeter Pulse Oximetry (%) 96 Oxygen Delivery Method Room Air Intake Visit Reasons: 3mth f/u- NEEDS A1C Intake Note: Patient is here to follow up on DM, HTN, Dyslipidemia. Upstream Biomanufacturing Technician Required: No Big Data Engineer: Not Required per policy Accompanied by: Self / Same As Patient Allergies exenatide [Bydureon] Allergy (Unknown, Verified 10/23/23 09:21) welts, vomiting iodine Allergy (Unknown, Verified 10/23/23 09:21) vomiting lisinopril Allergy (Unknown, Verified 10/23/23 09:21) cough vancomycin [VANCOMYCIN] Allergy (Unknown, Verified 10/23/23 09:21) UNKNOWN Insulin Allergy (Unknown, Uncoded 10/23/23 09:21) swelling Medication List - Last Reconciled 10/23/23 by Ernesto Salter MD amlodipine 10 mg PO DAILY atorvastatin 80 mg PO DAILY blood sugar diagnostic (FreeStyle Lite Strips) As directed three times a day cholecalciferol (vitamin D3) (Vitamin D3) 125 mcg PO DAILY dulaglutide (Trulicity) 1.5 mg (0.5 mL) topical QWEEK flash glucose scanning reader (MyWebGrocerStyle Caroline 14 Day [place]) As directed flash glucose sensor (FreeStyle Caroline 14 Day Sensor kit) 1 ea topical Q2W insulin degludec (Tresiba FlexTouch U-200 insulin) 30 units (0.15 mL) subcut BEDTIME 30 days lancets (FreeStyle Lancets) 4 times a day losartan-hydrochlorothiazide 100-12.5 mg 1 tab PO DAILY pen needle, diabetic (BD Ultra-Fine Isabel Pen Needle) As directed four times a day Tobacco use date assessed: 10/23/23 Dental Screening Dental Screen Date: 04/24/23 HPI 3mth f/u- NEEDS A1C HPI Details DM; HTN and hyperlip; sees endo and A1C improving [facility] Medical History Diabetic polyneuropathy associated with type 2 diabetes mellitus Morbid obesity due to excess calories Vitamin D deficiency Hypertension Dyslipidemia Diabetic nephropathy associated with type 2 diabetes mellitus alf (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 Brother Past heart attack Social History Household Members: None Housing: Apartment Alcohol intake: never Patient Tobacco Use Status: Never used Tobacco e-Cigarette/Vaping Use: Never Used Second Hand Smoke Exposure: No service: No Current occupational status: unemployed and disabled Cognitive needs: Yes (cane) Hearing needs: No Vision needs: Yes (reading) Questionnaire Thrive Questionnaire Date Thrive assessed: 04/24/23 EMMANUELLE-7 AMB Questionnaire EMMANUELLE-7 Date EMMANUELLE - 7 assessed: 07/24/23 Source: Developed by Drs. Huseyin Holt, Alyson Banda, Colin Ragland and colleagues, with an educational madeline from [employer]. Review of Systems Const Denies chills, Denies headache(s) and Denies weight loss ENT Denies headache(s) Card Denies chest pain, Denies syncope, Denies irregular heart rhythm and Denies dyspnea Resp Denies chest congestion, Denies cough and Denies dyspnea GI Denies abdominal pain, Denies change in stool character, Denies nausea and Denies vomiting Musc Denies deformity and Denies joint swelling Neuro Denies syncope and Denies headache(s) Physical exam (Primary Care) Vital Signs: Last Vital Signs Pulse 78 10/23/23 09:21 BP 120/70 10/23/23 09:21 Pulse Ox 96 10/23/23 09:21 Oxygen Delivery Method Room Air 10/23/23 09:21 BMI result Body Mass Index 52.7 Tobacco/Smoking Status: Tobacco use Status Tobacco use date assessed 10/23/23 10/23/23 09:27 Patient Tobacco Use Status Never used Tobacco 10/23/23 09:27 e-Cigarette/Vaping Use Never Used 10/23/23 09:27 Thrive Assessment: Date of Thrive Assessment Date Thrive assessed 04/24/23 10/23/23 09:27 Const General: cooperative, comfortable, no acute distress and alert Neck Neck: Yes no lymphadenopathy Thyroid: Thyroid normal Resp Effort & Inspection: normal respiratory effort Auscultation: clear to auscultation bilaterally Percussion: percussion normal Cardio Jugular venous distension: no JVD Palpation: normal PMI Rate: regular rate Rhythm: regular rhythm Heart sounds: S1 normal heart sound present and S2 normal heart sound present GI Inspection: Yes normal to inspection Palpation (GI): No hepatosplenomegaly present Skin General skin exam: no rashes or lesions noted Extrem General: Yes no clubbing, cyanosis or edema Results AMB Hemoglobin A1c AMB Hemoglobin A1c 8.4 % Last Edit by SOFIA Suresh on 10/23/23 09:34 Results Reviewed Results Reviewed: Laboratory Last Values Hgb A1c (Clinic) 8.4 % (4.0-6.0) H 10/23/23 09:19 Assessment and Plan Assessment & Plan (1) Diabetes mellitus with coincident hypertension: Code(s): E11.9 - Type 2 diabetes mellitus without complications; I10 - Essential (primary) hypertension Plan: stable; per endo (2) Hypertension: Code(s): I10 - Essential (primary) hypertension Plan: stable; same rx (3) Hyperlipidemia: Code(s): E78.5 - Hyperlipidemia, unspecified Plan: stable; same rx Orders: Orders AMB Hemoglobin A1c Today E11.21 - Type 2 diabetes mellitus with diabetic nephropathy Coding Level of Care Code Est Pt Level 4 (28625) Diagnoses Diabetes mellitus with coincident hypertension E11.9; I10 Hypertension I10 Hyperlipidemia E78.5
[2023-10-23 09:21] VITALS: BP 120/70; PULSE 78; O2SAT 96; BMI 52.7
== END 2023-10-23 09:53 | disposition home or self-care (01) ==
PROVIDERS: PCP Internal Medicine; Visit Provider Internal Medicine
DX: E11.69 Type 2 diabetes mellitus with other specified complication (principal); E11.21 Type 2 diabetes mellitus with diabetic nephropathy; I10 Essential (primary) hypertension; E78.5 Hyperlipidemia, unspecified
CPT/HCPCS: 83036; 99214

== ENCOUNTER 2024-01-22 11:49 | Outpatient (REF) | payer OTHER, SELFPAY ==
[2024-01-22 12:29] LABS: MANUAL DIFF FLAG NO
[2024-01-22 12:44] LABS: Basophils Percent Auto 0.4 % (0-2); Eosinophils Percent Auto 0.1 % (0-4); Hematocrit 45.2 % (42.0-52.0); Hemoglobin 15.1 g/dl (14.0-18.0); Imm Gran Abs Auto 0.03 X10*3/uL (0.00-0.03); Imm Gran Pct Auto 0.3 % (0.0-0.4); Lymphocytes Absolute Auto 2.6 X10*3/uL (1.2-4.9); Lymphocytes Percent Auto 24.1 % (20-40); Mean Corpuscular HGB Conc 33.4 g/dl (31.0-36.0); Mean Corpuscular Hemoglobin 29.9 pg (27.0-33.0); Mean Corpuscular Volume 89.5 fL (80.0-98.0); Mean Platelet Volume 10.6 fL (9.4-12.4); Monocytes Absolute Auto 0.7 X10*3/uL (0.1-1.2); Monocytes Percent Auto 6.2 % (2-11); Neutrophils Absolute Auto 7.6 x10*3/uL (2.0-8.3); Neutrophils Percent Auto 68.9 % (45-73); Platelet Count 155 X10*3/uL (160-400); Red Blood Count 5.05 X10*6/uL (4.60-5.80); Red Cell Distribution Width 13.1 % (11.0-16.0)
[2024-01-22 13:09] LABS: Estimated Average Glucose 183 mg/dL; Hemoglobin A1C 243.3298 umol/L; Total Hemoglobin (HGBA1C) 3796.5988 umol/L
[2024-01-22 13:18] LABS: Alanine Aminotransferase 20 U/L (0-40); Albumin Level 3.6 g/dL (3.5-5.0); Alkaline Phosphatase 123 U/L (39-117); Anion Gap 12 (12-20); Aspartate Amino Transferase 22 U/L (5-37); Bilirubin Total 0.9 mg/dL (0.0-1.0); Blood Urea Nitrogen 21 mg/dL (9-16); Calcium 9.6 mg/dL (8.4-10.2); Carbon Dioxide 24 mmol/L (22-29); Chloride 106 mmol/L (96-108); Cholesterol 124 mg/dL (<200); Estimated Glomerular Filt Rate > 60; Glucose Fasting 170 mg/dL (60-99); HDL Cholesterol 38 mg/dL (>40); LDL Cholesterol Calculated 69 mg/dL (<100); Potassium 4.1 mmol/L (3.3-5.1); Sodium 138 mmol/L (135-145); Total Protein 8.4 g/dL (6.5-8.0); Triglycerides 87 mg/dL (<150)
[2024-01-22 13:33] LABS: Thyroid Stimulating Hormone 3.08 uIU/mL (0.32-4.0)
== END 2024-01-22 11:50 | disposition home or self-care (01) ==
LOC: HO.LAB 11:49
PROVIDERS: PCP Internal Medicine; Visit Provider Internal Medicine
DX: R73.9 Hyperglycemia, unspecified (principal); E03.9 Hypothyroidism, unspecified; N28.9 Disorder of kidney and ureter, unspecified; E78.5 Hyperlipidemia, unspecified; D64.9 Anemia, unspecified
CPT/HCPCS: 36415; 80053; 80061; 83036; 84443; 85025

== ENCOUNTER 2024-01-23 09:50 | Outpatient (AMB) | payer OTHER, SELFPAY ==
--- NOTE | 2024-01-23 09:52 | A.OFFPC_ITS ---
Vital Signs 01/23/24 09:53 Height 5 ft 9 in Weight 359 lb 6 oz BMI 53.1 BP 120/80 Blood Pressure Location Lt brachial Position Sitting Pulse 84 Pulse Source Pulse Oximeter Pulse Oximetry (%) 97 Oxygen Delivery Method Room Air Intake Visit Reasons: 3mth f/u Intake Note: Patient is here to follow up on DM, HLD, Hypothyroidism. Pt decline flu shot today. Automatic Blocker Required: No Timber Hand: Not Required per policy Accompanied by: Self / Same As Patient Allergies exenatide [Bydureon] Allergy (Unknown, Verified 01/23/24 09:53) welts, vomiting iodine Allergy (Unknown, Verified 01/23/24 09:53) vomiting lisinopril Allergy (Unknown, Verified 01/23/24 09:53) cough vancomycin [VANCOMYCIN] Allergy (Unknown, Verified 01/23/24 09:53) UNKNOWN Insulin Allergy (Unknown, Uncoded 01/23/24 09:53) swelling Tobacco use date assessed: 01/23/24 Dental Screening Dental Screen Date: 04/24/23 HPI 3mth f/u HPI Details HTN on Rx; doing well; compliant COUNTS INCLUDE 234 BEDS AT THE [facility] Medical History Diabetic polyneuropathy associated with type 2 diabetes mellitus Morbid obesity due to excess calories Vitamin D deficiency Hypertension Dyslipidemia Diabetic nephropathy associated with type 2 diabetes mellitus 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 Brother Past heart attack Social History Household Members: None Housing: Apartment Alcohol intake: never Patient Tobacco Use Status: Never used Tobacco e-Cigarette/Vaping Use: Never Used Second Hand Smoke Exposure: No service: No Current occupational status: unemployed and disabled Cognitive needs: Yes (cane) Hearing needs: No Vision needs: Yes (reading) Questionnaire Thrive Questionnaire Date Thrive assessed: 04/24/23 EMMANUELLE-7 AMB Questionnaire EMMANUELLE-7 Date EMMANUELLE - 7 assessed: 07/24/23 Source: Developed by Drs. Huseyin Holt, Alyson Banda, Colin Ragland and colleagues, with an educational madeline from [employer]. Review of Systems Const Denies chills, Denies headache(s) and Denies weight loss ENT Denies headache(s) Card Denies chest pain, Denies syncope, Denies irregular heart rhythm and Denies dyspnea Resp Denies chest congestion, Denies cough and Denies dyspnea GI Denies abdominal pain, Denies change in stool character, Denies nausea and Denies vomiting Musc Denies deformity and Denies joint swelling Neuro Denies syncope and Denies headache(s) Physical exam (Primary Care) Vital Signs: Last Vital Signs Pulse 84 01/23/24 09:53 BP 120/80 01/23/24 09:53 Pulse Ox 97 01/23/24 09:53 Oxygen Delivery Method Room Air 01/23/24 09:53 BMI result Body Mass Index 53.1 Tobacco/Smoking Status: Tobacco use Status Tobacco use date assessed 01/23/24 01/23/24 09:58 Patient Tobacco Use Status Never used Tobacco 01/23/24 09:58 e-Cigarette/Vaping Use Never Used 01/23/24 09:58 Thrive Assessment: Date of Thrive Assessment Date Thrive assessed 04/24/23 01/23/24 09:58 Const General: cooperative, comfortable, no acute distress and alert Neck Neck: Yes no lymphadenopathy Thyroid: Thyroid normal Resp Effort & Inspection: normal respiratory effort Auscultation: clear to auscultation bilaterally Percussion: percussion normal Cardio Jugular venous distension: no JVD Palpation: normal PMI Rate: regular rate Rhythm: regular rhythm Heart sounds: S1 normal heart sound present and S2 normal heart sound present GI Inspection: Yes normal to inspection Palpation (GI): No hepatosplenomegaly present Skin General skin exam: no rashes or lesions noted Extrem General: Yes no clubbing, cyanosis or edema Coding Level of Care Code Est Pt Level 3 (23249) Diagnoses Hypertension I10 Assessment & Plan Assessment & Plan (1) Hypertension: Code(s): I10 - Essential (primary) hypertension Category: Medical Plan: stable; same rx
[2024-01-23 09:53] VITALS: BP 120/80; PULSE 84; O2SAT 97; BMI 53.1
== END 2024-01-23 10:06 | disposition home or self-care (01) ==
PROVIDERS: PCP Internal Medicine; Visit Provider Internal Medicine
DX: I10 Essential (primary) hypertension (principal)

== ENCOUNTER → 2024-01-23 09:50 | Outpatient (BNVA) | payer OTHER, SELFPAY | PROVIDERS: PCP Internal Medicine; Visit Provider Internal Medicine | DX: I10 Essential (primary) hypertension (principal); Z79.899 Other long term (current) drug therapy | CPT/HCPCS: 99212 ==

== ENCOUNTER 2024-05-25 10:14 | Outpatient (AMB) | payer OTHER, SELFPAY ==
[2024-05-25 10:18] VITALS: BP 150/80; PULSE 86; TEMP 36.3; O2SAT 98; BMI 56.9
--- NOTE | 2024-05-25 10:18 | MHC.PC.OV ---
Vital Signs 05/25/24 10:18 Height 5 ft 9 in Weight 385 lb 5.888 oz BMI 56.9 BP 150/80 H Blood Pressure Location Lt brachial Position Sitting Pulse 86 Pulse Source Pulse Oximeter Temp 97.4 F Temp Source Temporal Artery Scan Pulse Oximetry (%) 98 Oxygen Delivery Method Room Air Intake Visit Reasons: 3 month f/u Workforce Development Specialist Required: No Director Of Epidemiology: Not Required per policy Accompanied by: Self / Same As Patient Allergies exenatide [Bydureon] Allergy (Unknown, Verified 05/25/24 10:19) welts, vomiting iodine Allergy (Unknown, Verified 05/25/24 10:19) vomiting lisinopril Allergy (Unknown, Verified 05/25/24 10:19) cough vancomycin [VANCOMYCIN] Allergy (Unknown, Verified 05/25/24 10:19) UNKNOWN Insulin Allergy (Unknown, Uncoded 05/25/24 10:19) swelling Tobacco use date assessed: 05/25/24 Dental Screening Dental Screen Date: 05/25/24 Did you have a dental visit in the last 12 months?: Yes Did you have a dental problem in the last 6 months where you did not have access to dental care?: No Was dental information given to patient?: Patient has dentist HPI 3 month f/u HPI Details DM; sees endo; morbidly obese and refuses rx [facility] Medical History Diabetic polyneuropathy associated with type 2 diabetes mellitus Morbid obesity due to excess calories Vitamin D deficiency Hypertension Dyslipidemia Diabetic nephropathy associated with type 2 diabetes mellitus 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 Brother Past heart attack Social History Household Members: None Housing: Apartment Alcohol intake: never Patient Tobacco Use Status: Never used Tobacco Tobacco use type: Cigarette e-Cigarette/Vaping Use: Never Used Second Hand Smoke Exposure: No service: No Current occupational status: unemployed and disabled Cognitive needs: Yes (cane) Hearing needs: No Vision needs: Yes (reading) Questionnaire PHQ-9 Over the last 2 weeks, how often have you been bothered by any of the following problems? 1. Little interest or pleasure in doing things: not at all 2. Feeling down, depressed, or hopeless: not at all 3. Trouble falling or staying asleep, or sleeping too much: not at all 4. Feeling tired or having little energy: not at all 5. Poor appetite or overeating: not at all 6. Feeling bad about yourself - or that you are a failure or have let yourself or your family down: not at all 7. Trouble concentrating on things, such as reading the newspaper or watching television: not at all 8. Moving or speaking so slowly that other people could have noticed. Or the opposite - being so fidgety or restless that you have been moving around a lot more than usual: not at all 9. Thoughts that you would be better off or of hurting yourself in some way: not at all Total score: 0 Depression Screening Interpretation: Negative Depression Screening Done: Yes Source: Developed by Drs. Huseyin Hotl, Alyson Banda, Colin Ragland and colleagues, with an educational madeline from [employer]. Thrive Questionnaire Date Thrive assessed: 05/25/24 I am a: Patient What is your living situation today?: I have a steady place to live Within the past 12 months, did the food you bought not last and you didn't have the money to get more?: Never true Within the past 12 months, did you worry whether your food would run out before you got money to buy more?: Never true Do you have trouble paying for medicines?: No Do you have trouble getting transportation to medical appointments?: No Do you have trouble paying your heating and electricity bill?: No Do you have trouble taking care of your child, family member or friend?: No Do you have trouble with day-to-day activities such as bathing, preparing meals, shopping, managing finances, etc.?: No Are you currently unemployed and looking for a job?: No Are you interested in more education?: No Currently or been in a relationship where the following occur: No concerns reported THRIVE Score: 0 AUDIT C Alcohol Use Questionnaire (AUDIT-C) 1. How often do you have a drink containing alcohol?: Never Total Score: 0 Score Reviewed/Action Taken: Yes EMMANUELLE-7 AMB Questionnaire EMMANUELLE-7 Date EMMAUNELLE - 7 assessed: 05/25/24 Feeling nervous, anxious, or on edge: 0 = Not at all Not being able to stop or control worryin = Not at all Worrying too much about different things: 0 = Not at all Trouble relaxin = Not at all Being so restless that it is hard to sit still: 0 = Not at all Becoming easily annoyed or irritable: 0 = Not at all Feeling afraid as if something awful might happen: 0 = Not at all Total EMMANUELLE-7 score (0-4 normal; 5-9 mild; 10-14 moderate; 15-21 severe): 0 Source: Developed by Drs. Huseyin Holt, Alyson Banda, Colin Ragland and colleagues, with an educational madeline from [employer]. Review of Systems Const Denies chills, Denies headache(s) and Denies weight loss ENT Denies headache(s) Card Denies chest pain, Denies syncope, Denies irregular heart rhythm and Denies dyspnea Resp Denies chest congestion, Denies cough and Denies dyspnea GI Denies abdominal pain, Denies change in stool character, Denies nausea and Denies vomiting Musc Denies deformity and Denies joint swelling Neuro Denies syncope and Denies headache(s) Physical exam (Primary Care) Vital Signs: Last Vital Signs Temp 97.4 F 05/25/24 10:18 Pulse 86 05/25/24 10:18 BP 150/80 H 05/25/24 10:18 Pulse Ox 98 05/25/24 10:18 Oxygen Delivery Method Room Air 05/25/24 10:18 BMI result Body Mass Index 56.9 Tobacco/Smoking Status: Tobacco use Status Tobacco use date assessed 05/25/24 05/25/24 10:20 Patient Tobacco Use Status Never used Tobacco 05/25/24 10:20 Tobacco use type Cigarette 05/25/24 10:20 e-Cigarette/Vaping Use Never Used 05/25/24 10:20 PHQ-9: PHQ-9 Score PHQ-9: Total score 0 05/25/24 10:27 Depression Screening Interpretation: Negative Thrive Assessment: Date of Thrive Assessment Date Thrive assessed 05/25/24 05/25/24 10:20 Currently or been in a relationship where the following occur: No concerns reported Const General: cooperative, comfortable, no acute distress and alert Neck Neck: Yes no lymphadenopathy Thyroid: Thyroid normal Resp Effort & Inspection: normal respiratory effort Auscultation: clear to auscultation bilaterally Percussion: percussion normal Cardio Jugular venous distension: no JVD Palpation: normal PMI Rate: regular rate Rhythm: regular rhythm Heart sounds: S1 normal heart sound present and S2 normal heart sound present GI Inspection: Yes normal to inspection Palpation (GI): No hepatosplenomegaly present Skin General skin exam: no rashes or lesions noted Extrem General: Yes no clubbing, cyanosis or edema Coding Level of Care Code Est Pt Level 3 (38049) Diagnoses Diabetes mellitus with coincident hypertension E11.9; I10 Assessment & Plan Assessment & Plan (1) Diabetes mellitus with coincident hypertension: Code(s): E11.9 - Type 2 diabetes mellitus without complications; I10 - Essential (primary) hypertension Category: Medical Plan: stable; as per endo
--- OUTSIDE RECORDS SUMMARY | 2024-05-25 11:13 | XMS_ITS | Encounter Summary ---
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) (Primary Dx); Venous stasis dermatitis of both lower extremities; Arthritis of both feet; Dermatophytosis, nail Social History Tobacco Use Types Packs/Day Years Used Date Smoking Tobacco: Never Assessed Sex and Gender Information Value Date Recorded Sex Assigned at Not on file Legal Sex Male 9:37 AM EST Gender Identity Not on file Sexual Orientation Not on file documented as of this encounter Last Filed Vital Signs Vital Sign Reading Time Taken Comments Blood Pressure - - Pulse - - Temperature - - Respiratory Rate - - Oxygen Saturation - - Inhaled Oxygen Concentration - - Weight 162 kg (357 lb) 04/28/2024 10:01 AM EST Height 175.3 cm (5' 9.02 ) 04/28/2024 10:[address] Body Mass Index 52.7 04/28/2024 10:01 AM EST documented in this encounter Progress Notes * Burke Barron DPM - 04/28/2024 10:00 AM EST Referring MD: kevin Last PCP visit: 01/25/2024 IDENTIFIER: @TITLE@ Néstor is a 58 y.o. year old male who presents for consultation. CC: Bilateral foot pain HPI: 58-year-old male with an A1c of 8.0 and a and an 160 mg/dL blood sugar returns to office with chiefcomplaint of bilateral foot pain. Patient notes that he continues to have sharp shooting pain within his feet bilaterally. Patient feels that he has had some increased tightness through the left ankle. Patient does not use compression. Patient notes that the discoloration and redness in his upper calves has decreased recently. Patient is concerned with discoloration. Patient notes his nails continue be thickened and misshapened causing pain in close toed shoes. ROS: GENERAL: Pt denies nausea, fever, vomiting, chills, or shortness of breath. Pt in NAD. CARDIOLOGY: pt denies chest pain, palpitations LUNGS: pt denies shortness of breath MUSCULOSKELETAL: See HPI, otherwise no joint pain or swelling, back pain, or muscle pain. SKIN: see HPI, otherwise no lesions, rash or itching NEURO: No persistent headache, weakness or numbness The remainder of the review of systems is noncontributory PAST MEDICAL HISTORY: Patient Active Problem List Diagnosis Chronic venous insufficiency SOCIAL HISTORY: Social History Tobacco Use Smoking status: Not on file Smokeless tobacco: Not on file Substance Use Topics Alcohol use: Not on file ACTIVE MEDICATIONS: Outpatient Medications Marked as Taking for the 04/28/24 encounter (Office Visit) with Burke Barron DPM Medication Sig Dispense Refill amLODIPine (NORVASC) 10 mg tablet Take 1 tablet (10 mg total) by mouth 1 (one) time each day. atorvastatin (LIPITOR) 80 mg tablet Take 1 tablet (80 mg total) by mouth 1 (one) time each day. cholecalciferol (VITAMIN D-3) 125 mcg (5,000 unit) capsule Take by mouth. dulaglutide (Trulicity) 1.5 mg/0.5 mL pen injector injection Inject into the skin. losartan-hydroCHLOROthiazide (HYZAAR) 100-12.5 mg per tablet Take 1 tablet by mouth 1 (one) time each day. metFORMIN (GLUCOPHAGE) 500 mg tablet Take 1 Tablet by mouth 2 times daily (with meals). miconazole nitrate 2 % aerosol,spray Apply 1 Applicatorful topically daily for 90 days. ALLERGIES: @ALL@ PHYSICAL EXAM: Height 1.753 m (69.02 ), weight 162 kg (357 lb). PODIATRIC EXAMINATION: GENERAL: Patient appears well nourished, with NAD. VASCULAR: Dorsalis pedis pulses are 2/4 bilaterally and Posterior tibial pulses are 0/4 bilaterally. Capillary filling time within normal limits the digits. No pallor on elevation or rubor on dependency. No hair growth. Many varicosities. Hyperpigmentation with trophic skin changes to the bilaterallower extremities. +2 pitting edema. Denies rest pain or claudication pain. NEUROLOGICAL: Sharp/dull sensation diminished, protective sensation diminished on [place] ORTHOPEDIC: Good muscle strength 5/5 of all flexors and extensors. Dorsi flexion of ankle ,10 degrees, plantar flexion WNL. No muscle atrophy. Collapsing midfoot on stance with greater than 5 degreeseversion of hindfoot on relaxed calcaneal stance position.Arthritic changes to the midfoot at the tarsometatarsal joint. DERMATOLOGICAL: Nails continue to be thickened misshapened discolored x 10 with somewhat debris. Continued breakdown of skin to the fourth interspace bilaterally with maceration with subcutaneous base BIOMECHANICS: STJ ROM wnl, MTJ ROM wnl, 1st MPJ ROM wnl. IMPRESSION: 1. 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 Venous stasis dermatitis of both lower extremities 3. Arthritis of both feet 4. Dermatophytosis, nail PLAN: Pt was seen and examined, history reviewed. Patient once again educated on the importance of keeping his sugar well- controlled. Patient encouraged to decrease his overall sugar level in order to limit transfer nonhealing wounds infections and amputations Patient was educated that the tightness within his left ankle is from the amount of fluid overload he is experiencing. Patient was fit with an Kirby bandage during his visit here today in order to compress the fluid out of the leg. Patient was once again educated on the callus buildup at the bottoms of the feet bilaterally and the importance of using moisturizers in order to limit preulcerative lesions and breakdown of skin Nail debridement performed to nails 1-5 bilateral as nails were described to be causing pain and difficulty for walking while in shoegear at their previous length. They were debrided in thickness andlength, with no incident. Clinical evidence of mycosis is documented which required active treatment. Patient expressed immediate relief. Patient is to RTC in 9 weeks Patient was educated on the importance of using a drying powder in the fourth interspace of bilateral feet in order to limit continued breakdown of skin. 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
--- OUTSIDE RECORDS SUMMARY | 2024-05-25 11:13 | XMS_ITS | Clinical Summary ---
Author Organization [facility] Address [address] [facility] [address] [place] [address] Phone Care Team Providers Care Enterprise Architect Manager Name Role Phone Ernesto Salter MD Primary Care Provider [phone] Allergies Active Allergy Reactions Criticality Noted Date Comments Exenatide 08/22/2022 Insulin 08/22/2022 Iodine 08/22/2022 Lisinopril 08/22/2022 Vancomycin 08/22/2022 Medications Cholecalciferol (Vitamin D3) 125 MCG (5000 UT) capsule Take 1 tablet by mouth 1 (one) time each day 05/11/19 21 Active metFORMIN HCl 500 MG/5ML solution TAKE 5ML BY MOUTH ONCE DAILY 05/17/19 21 Active Lyumjev KwikPen 200 UNIT/ML solution pen-injector 24 UNIT (0.12 ML) SUBCUT 3 TIMES DAILY 30 DAYS 04/25/19 21 Active Tresiba FlexTouch 200 UNIT/ML injection INJECT 70 UNITS (0.35 ML) SUBCUTANEOUSLY AT BEDTIME 04/15/19 21 Active Trulicity 1.5 MG/0.5ML solution pen-injector INJECT 1.5 MG WEEKLY SUBCUTANEOUSLY DIRECTED 06/06/19 21 Active Continuous Blood Gluc Sensor (FreeStyle Caroline 14 Day Sensor) misc DIRECTED EVERY 14 DAYS 06/22/19 21 Active amLODIPine (NORVASC) 10 MG tablet TAKE 1 TABLET BY MOUTH EVERY DAY 90 tablet 3 06/29/19 22 Active atorvastatin (LIPITOR) 80 MG tablet TAKE 1 TABLET ORALLY BEDTIME FOR 30 DAYS DOSE INCREASED 09/07/19 23 Active [facility] [place] 2 % aerosol APPLY TOPICALLY DAILY FOR 90 DAYS. NOT COVERED 09/28/19 23 Active losartan (Cozaar) 50 MG tablet Take 1 tablet (50 mg total) by mouth 1 (one) time each day 90 tablet 3 10/10/19 Active Dapagliflozin Propanediol (Farxiga) 10 MG tablet Take 10 mg by mouth 1 (one) time each day 90 tablet 11 10/10/19 Active Active Problems Problem Noted Date Diagnosed Date Chronic kidney disease stage 3 07/12/2020 Type 2 diabetes mellitus wit h diabetic chronic kidney disease 07/12/2020 Hypertension 07/12/2020 Other acute kidney failure 07/12/2020 Chronic venous insufficiency 06/27/2020 Family History Medical History Relation Comments Gout Father Heart disease Father Hypertension Father Kidney disease Mother Diabetes Sibling 1 brother Hypertension Sibling 2 Relation Status Comments Father Mother Alive Sibling 1 Sibling 2 Social History Tobacco Use Types Packs/Day Years Used Date Smoking Tobacco: Never Passive Smoke Exposure: Never Smokeless Tobacco: Never Tobacco Cessation:Counseling Given: No Alcohol Use Standard Drinks/Week Comments No 0 (1 standard drink = 0.6 oz pur e alcohol) Sex and Gender Information Value Date Recorded Sex Assigned at Not on file Legal Sex Male 4:40 PM EST Gender Identity Not on file Sexual Orientation Not on file Last Filed Vital Signs Vital Sign Reading Time Taken Comments Blood Pressure 162/86 10/09/2022 8:31 AM EDT Pulse 78 10/09/2022 8:31 AM EDT Temperature - - Respiratory Rate - - Oxygen Saturation 96% 10/09/2022 8:31 AM EDT Inhaled Oxygen Concentration - - Weight 163 kg (359 lb) 10/09/2022 8:31 AM EDT Height 177.8 cm (5' 10 ) 10/09/2022 8:31 AM EDT Body Mass Index 51.51 10/09/2022 8:31 AM EDT Plan of Treatment Health Maintenance Due Date Last Done Comments Pneumococcal Vaccine: Pediatrics (0 to 5 Years) and At-Risk Patients (6 to 64 Years) (1 of 2 - PCV) 12/25/1969 Colorectal Cancer Screening: Annual FOBT 12/25/2012 Colorectal Cancer Screening: Colonoscopy 12/25/2012 Colorectal Cancer Screening: Sigmoidoscopy 12/25/2012 Diabetes: Ophthalmology Exam 07/12/2020 Diabetes: Pedal Pulse Checked 07/12/2020 Diabetes: Sensory Foot Exam 07/12/2020 Diabetes: Visual Foot Exam 07/12/2020 Diabetes: Hemoglobin A1C 01/09/2023 023, 10/12/2021 Influenza Vaccine (#1) 2023 Hepatitis B Vaccine Aged Out No longe r eligible based on patient's age to complete this topic Procedures Procedure Name Priority Date/Time Associated Diagnosis Comments HEMOGLOBIN A1C Routine 10/09/2022 9:11 AM EDT from Last 3 Months or Most Recently Relevant to Health Maintenance Results * (ABNORMAL) Hemoglobin A1c (10/09/2022 9:11 AM EDT) Hemoglobin A1C 10.0(H) (4.0-5.6) % [facility] Comment: MONITORING: In known diabetic patients, hemoglobin A1c targets should be discussed with health care provider. DIAGNOSTIC USE: ??The [place] Diabetes Association (ADA) and the World Health Organization (WHO) recommend the use of HbA1c to diagnose diabetes using a threshold of 6.5%. Patients who have an HbA1c between 5.7% and 6.4% are considered at increased risk for developing diabetes in the future. CAUTION: Falsely low HbA1c results may be observed in patients with hemolytic anemia, homozygous forms of abnormal hemoglobin (e.g. SS, CC, SC), , recent blood loss or hemoglobin F greater than 7%. Fructosamine may be used as an alternate test in these cases. REFERENCE: ADA: Standards of Medical Care in Diabetes 2020, The Journal of Clinical and Applied Research and Education Volume 43, Supplement 1 Testing performed or reported by [facility], a Service of [facility], [address] [place] [address] Samm Alejandre MD, Resident Care Supervisor [facility]# [id number] 10/09/2022 9:11 AM EDT 10/09/2022 9:18 AM EDT us Rafa Mosley MD LAB BLOOD ORDERABLES Final Re sult [facility] from Last 3 Months or Most Recently Relevant to Health Maintenance Insurance MEDICAID MEDICAID Care Teams Enterprise Architect Manager Relationship Specialty Start Date End Date Ernesto Salter MD [address] [place] [address] PCP - General Internal Medicine 10/11/21
--- OUTSIDE RECORDS SUMMARY | 2024-05-25 11:13 | XMS_ITS | Clinical Summary ---
Author Organization [address] [facility] Address [address] [place] [address] Phone Care Team Providers Care Basketball Player Name Role Phone Abraham Esteban DO Primary Care Provider [phone] Allergies Active Allergy Reactions Criticality Noted Date Comments Exenatide 08/22/2022 Insulin Regular 08/22/2022 Iodine 08/22/2022 Lisinopril 08/22/2022 Vancomycin 08/22/2022 Medications miconazole nitrate 2 % aerosol,spray Apply 1 Applicatorful topically daily for 90 days. Active amLODIPine (NORVASC) 10 mg tablet Take 1 tablet (10 mg total) by mouth 1 (one) time each day. Active atorvastatin (LIPITOR) 80 mg tablet Take 1 tablet (80 mg total) by mouth 1 (one) time each day. Active cholecalcifero l (VITAMIN D-3) 125 mcg (5,000 unit) capsule Take by mouth. Activ e dulaglutide (Trulicity) 1.5 mg/0.5 mL pen injector injection Inject into the skin. Active losartan-hydro CHLOROthiazide (HYZAAR) 100-12.5 mg per tablet Take 1 tablet by mouth 1 (one) time each day. Active metFORMIN (GLUCOPHAGE) 500 mg tablet Take 1 Tablet by mouth 2 times daily (with meals). 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) (Primary Dx); Venous stasis dermatitis of both lower extremities; Arthritis of both feet; Dermatophytosis, nail from Last 3 Months Surgical History Surgery Date Site/Laterality Comments OTHER SURGICAL HISTORY 01/17/2016 PROCEDURE: HISTORY OTHER; COMMENT: Endovascular ablation Medical History Medical History Date Comments Chronic venous insufficiency 06/27/2020 DX: Chronic venous insufficiency Type 2 diabetes mellitus wit h hyperosmolarity, uncontrolled (CMS/HCC) DX:Type 2 diab etes mellitus with hyperosmolarity, uncontrolled (HCC) Diabetic neuropathy (CMS/HCC) DX :Diabetic neuropathy (HCC) Dyslipidemia DX:Dyslipidemia Hypertension DX:Hypertension Microalbuminuria DX:Microalbumin uria Morbid obesity due to excess calories (CMS/HCC) DX:Morbid obesity due to exc ess calories (HCC) Vitamin D deficiency DX:Vitamin D deficiency Social History Tobacco Use Types Packs/Day Years Used Date Smoking Tobacco: Never Assessed Sex and Gender Information Value Date Recorded Sex Assigned at Not on file Legal Sex Male 9:37 AM EST Gender Identity Not on file Sexual Orientation Not on file Obstetrics History Last Filed Vital Signs Vital Sign Reading Time Taken Comments Blood Pressure - - Pulse - - Temperature - - Respiratory Rate - - Oxygen Saturation - - Inhaled Oxygen Concentration - - Weight 162 kg (357 lb) 04/28/2024 10:01 AM EST Height 175.3 cm (5' 9.02 ) 04/28/2024 10:[address] Body Mass Index 52.7 04/28/2024 10:01 AM EST Plan of Treatment Upcoming Encounters Date Type Department Care Team (Late st Contact Info) Description 06/30/2024 9:45 AM EDT Office Visit Orthopedic Surgery - [place] [address] [phone] Burke Barron DPM [address] [address] Health Maintenance Due Date Last Done Comments Diabetes: Annual GFR (Glomer ular Filtration Rate) 1963 Diabetes: Annual Foot Exam 12/25/1973 Diabetes: Annual Retina Eye Exam 12/25/1973 DTaP,Tdap,and Td Vaccines (1 - Tdap) 12/25/1982 Pneumococcal Vaccine: 50+ Ye ars (1 of 2 - PCV) 12/25/1982 Pneumococcal Vaccine: Pediat rics (0 to 5 Years) and At-Risk Patients (6 to 64 Years) (1 of 2 - PCV) 12/25/1982 Zoster Vaccines (1 of 2) 12/25/2013 Colorectal Cancer Screening: Colonoscopy 03/05/2022 Depression Screening 03/05/2022 HIV Screening 03/05/2022 Hepatitis C Screening 03/05/2022 Social Influencers of Health Screening 03/05/2022 COVID-19 Vaccine (1 - 2023-2 5 season) 2023 Influenza Vaccine (#1) 2023 RSV Immunization Patients 60 + Years Old (1 - Risk 60-74 years 1-dose series) 2023 Diabetes: Blood Sugar Contro l Test (HGBA1C) 05/13/2024 11/11/2023 Diabetes: Annual Urine Albumin-Creatinine Ratio (uACR) 11/10/2024 11/11/2023 Cholesterol Screening (Lipid Panel) 11/10/2028 11/11/2023 HIB Vaccines Aged Out No longer eligi ble based on patient's age to complete this topic HPV Vaccines Aged Out No longer eligi ble based on patient's age to complete this topic Hepatitis A Vaccines Aged Out No long er eligible based on patient's age to complete this topic Hepatitis B Vaccines Aged Out No long er eligible based on patient's age to complete this topic IPV Vaccines Aged Out No longer eligi ble based on patient's age to complete this topic MMR Vaccines Aged Out No longer eligi ble based on patient's age to complete this topic Meningococcal ACWY Vaccine Aged Out N o longer eligible based on patient's age to complete this topic Meningococcal B Vacine Aged Out No lo nger eligible based on patient's age to complete this topic RSV Immunization Patients Un lynne 20 months Aged Out No longer eligible b ased on patient's age to complete this topic Varicella Vaccines Aged Out No longer eligible based on patient's age to complete this topic Procedures Procedure Name Priority Date/Time Associated Diagnosis Comments HM URINE ALBUMIN CREATININE RATIO Routine 11/11/2023 HEMOGLOBIN A1C Routine 11/11/2023 LIPID PANEL Routine 11/11/2023 from Last 3 Months or Most Recently Relevant to Health Maintenance Results * HM Urine Albumin Creatinine Ratio (11/11/2023) HM Urine Albumin Creatinine Ratio abstracted [facility] Provider MD HEALTH MAINTENANCE Final Result * Hemoglobin A1c (11/11/2023) Hemoglobin A1C 0.0 % Comment:no interpretation, a bstracted Blood Venous blood specimen / Unknown [facility] Provider MD LAB BLOOD ORDERABLES Anita l Result * Lipid panel (11/11/2023) LDL/HDL Ratio 0 Comment:no interpretation, a bstracted Triglycerides 0 mg/dL Comment:no interpretation, a bstracted Cholesterol 0 mg/dL Comment:no interpretation, a bstracted HDL 0 mg/dL Comment:no interpretation, a bstracted LDL Cholesterol 0 mg/dL Comment:no interpretation, a bstracted Blood Venous blood specimen / Unknown [facility] Provider LAB BLOOD ORDERABLES Anita l Result from Last 3 Months or Most Recently Relevant to Health Maintenance Insurance [facility] [employer] Care Teams Basketball Player Relationship Specialty Start Date End Date Abraham Esteban DO [address] [place] [address] PCP - General 01/19/16
== END 2024-05-25 10:45 | disposition home or self-care (01) ==
PROVIDERS: PCP Internal Medicine; Visit Provider Internal Medicine
DX: E11.9 Type 2 diabetes mellitus without complications (principal); I10 Essential (primary) hypertension

== ENCOUNTER → 2024-05-25 10:14 | Outpatient (BNVA) | payer OTHER, SELFPAY | PROVIDERS: PCP Internal Medicine; Visit Provider Internal Medicine | DX: E11.9 Type 2 diabetes mellitus without complications (principal); I10 Essential (primary) hypertension | CPT/HCPCS: 99212 ==

== ENCOUNTER 2024-08-25 13:54 | Outpatient (AMB) | payer OTHER, SELFPAY ==
--- NOTE | 2024-08-25 14:06 | MHC.PC.OV ---
Vital Signs 08/25/24 14:07 Height 5 ft 9 in Weight 383 lb 2.614 oz BMI 56.6 BP 154/72 H Blood Pressure Location Lt brachial Position Sitting Pulse 92 Pulse Source Pulse Oximeter Temp 97.1 F Temp Source Temporal Artery Scan Pulse Oximetry (%) 96 Oxygen Delivery Method Room Air Intake Visit Reasons: PENELOPE from jey Gautam Pug Machine Operator Required: No Accompanied by: Self / Same As Patient Allergies exenatide [Bydureon] Allergy (Unknown, Verified 08/25/24 14:13) welts, vomiting iodine Allergy (Unknown, Verified 08/25/24 14:13) vomiting lisinopril Allergy (Unknown, Verified 08/25/24 14:13) cough vancomycin [VANCOMYCIN] Allergy (Unknown, Verified 08/25/24 14:13) UNKNOWN Insulin Allergy (Unknown, Uncoded 08/25/24 14:13) swelling Medication List - Last Reconciled 08/25/24 by Hair Yang PA-C amlodipine 10 mg PO DAILY atorvastatin 80 mg PO DAILY blood sugar diagnostic (FreeStyle Lite Strips) As directed three times a day cholecalciferol (vitamin D3) (Vitamin D3) 125 mcg PO DAILY dulaglutide (Trulicity) 1.5 mg (0.5 mL) topical QWEEK flash glucose scanning reader (FreeStyle Caroline 14 Day Edelstein) As directed flash glucose sensor (FreeStyle Caroline 14 Day Sensor kit) 1 ea topical Q2W insulin degludec (Tresiba FlexTouch U-200 insulin) 30 units (0.15 mL) subcut BEDTIME 30 days insulin lispro subcut lancets (FreeStyle Lancets) 4 times a day losartan-hydrochlorothiazide 100-12.5 mg 1 tab PO DAILY pen needle, diabetic (BD Ultra-Fine Isabel Pen Needle) As directed four times a day Tobacco use date assessed: 05/25/24 Dental Screening Dental Screen Date: 05/25/24 HPI PENELOPE from jey Gautam HPI Details Patient has a 58-year-old male here today for a transfer of care visit. Previous PCP was Dr. Salter.. The patient is a 58-year-old male presenting with concerns during the transfer of care, focusing on managing chronic conditions. Among the primary concerns are Type 2 Diabetes Mellitus, where fluctuating glucose control despite recent insulin dosage adjustments is noted. He actively utilizes an insulin pump and has had recent medication changes due to pronounced glucose variability, likely exacerbated by stress. --> Patient followed by an cushion cover inspector (Dr. Flores) and today's A1c is 6.5. He has made some recent adjustments in his short-acting insulin Hyperlipidemia is managed but requires regular assessment to align with his comorbid conditions. Obesity is significant, with a noted weight increase attributed to various factors, including limited physical activity and dietary measures compounded by lifestyle constraints. The patient expresses concerns over potential surgical options, highlighting a past adverse experience related to anesthesia. Obstructive Sleep Apnea is documented, with previous CPAP use abandoned due to discomfort and nasal dryness despite a water-inspired humidification system. Potential relationship to eustachian tube issues raised by recurrent ear sensations but not associated with pain or typical infections. Chronic knee pain anticipates further intervention discussions, though existent conservative management appears preferred by the patient. Dental concerns feature, indicating a disrupted restorative dental work history due to logistics and resource access, with temporary self-dentistry efforts employed. [facility] Medical History (Updated 08/26/24 @ 08:25 by Hair Yang PA-C) Diabetic polyneuropathy associated with type 2 diabetes mellitus Vitamin D deficiency Hypertension Dyslipidemia Diabetic nephropathy associated with type 2 diabetes mellitus nursing home (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 Brother Past heart attack Social History Household Members: None Housing: Apartment Alcohol intake: never Patient Tobacco Use Status: Never used Tobacco Tobacco use type: Cigarette e-Cigarette/Vaping Use: Never Used Second Hand Smoke Exposure: No service: No Current occupational status: unemployed and disabled Cognitive needs: Yes (cane) Hearing needs: No Vision needs: Yes (reading) Questionnaire PHQ-9 Over the last 2 weeks, how often have you been bothered by any of the following problems? 1. Little interest or pleasure in doing things: more than half the days 2. Feeling down, depressed, or hopeless: not at all 3. Trouble falling or staying asleep, or sleeping too much: nearly every day 4. Feeling tired or having little energy: nearly every day 5. Poor appetite or overeating: not at all 6. Feeling bad about yourself - or that you are a failure or have let yourself or your family down: not at all 7. Trouble concentrating on things, such as reading the newspaper or watching television: not at all 8. Moving or speaking so slowly that other people could have noticed. Or the opposite - being so fidgety or restless that you have been moving around a lot more than usual: not at all 9. Thoughts that you would be better off or of hurting yourself in some way: not at all Total score: 8 Depression Screening Interpretation: Positive Depression Screening Follow-up: Existing condition Depression Screening Done: Yes 57953 - PHQ-9 Billing: Yes Source: Developed by Drs. Huseyin Holt, Alyson Banda, Colin Ragland and colleagues, with an educational madeline from [employer] Thrive Questionnaire Date Thrive assessed: 08/25/24 I am a: Patient What is your living situation today?: I have a steady place to live Within the past 12 months, did the food you bought not last and you didn't have the money to get more?: Never true Within the past 12 months, did you worry whether your food would run out before you got money to buy more?: I choose not to answer this question Do you have trouble paying for medicines?: No Do you have trouble getting transportation to medical appointments?: No Do you have trouble paying your heating and electricity bill?: No Do you have trouble taking care of your child, family member or friend?: No Do you have trouble with day-to-day activities such as bathing, preparing meals, shopping, managing finances, etc.?: No Are you currently unemployed and looking for a job?: No Are you interested in more education?: No Please select the resources that you would like help with: None Currently or been in a relationship where the following occur: Controlled Financially THRIVE Score: 1 AUDIT C Alcohol Use Questionnaire (AUDIT-C) 1. How often do you have a drink containing alcohol?: Never 3. How often do you have six or more drinks on one occasion?: Never Total Score: 0 EMMANUELLE-7 AMB Questionnaire EMMANUELLE-7 Date EMMANUELLE - 7 assessed: 08/25/24 Feeling nervous, anxious, or on edge: 0 = Not at all Not being able to stop or control worryin = Not at all Worrying too much about different things: 0 = Not at all Trouble relaxin = Not at all Being so restless that it is hard to sit still: 0 = Not at all Becoming easily annoyed or irritable: 1 = Several days Feeling afraid as if something awful might happen: 0 = Not at all Total EMMANUELLE-7 score (0-4 normal; 5-9 mild; 10-14 moderate; 15-21 severe): 1 Source: Developed by Drs. Huseyin Holt, Alyson Banda, Colin Ragland and colleagues, with an educational madeline from [employer] EMMANUELLE-7 Assessment Billing EMMANUELLE-7 Assessment Tool: EMMANUELLE-7 Assessment 24500 Physical exam (Primary Care) Vital Signs: Last Vital Signs Temp 97.1 F 08/25/24 14:07 Pulse 92 08/25/24 14:07 BP 154/72 H 08/25/24 14:07 Pulse Ox 96 08/25/24 14:07 Oxygen Delivery Method Room Air 08/25/24 14:07 BMI result Body Mass Index 56.6 Tobacco/Smoking Status: Tobacco use Status Tobacco use date assessed 05/25/24 08/25/24 14:07 Patient Tobacco Use Status Never used Tobacco 08/25/24 14:07 Tobacco use type Cigarette 08/25/24 14:07 e-Cigarette/Vaping Use Never Used 08/25/24 14:07 PHQ-9: PHQ-9 Score PHQ-9: Total score 8 08/25/24 15:18 Depression Screening Interpretation: Positive Depression Screening Follow-up: Existing condition Thrive Assessment: Date of Thrive Assessment Date Thrive assessed 08/25/24 08/25/24 14:48 Currently or been in a relationship where the following occur: Controlled Financially Results AMB Hemoglobin A1c AMB Hemoglobin A1c 6.5 % Last Edit by SYLVIA Veloz on 08/25/24 15:18 Results Reviewed Results Reviewed: Laboratory Last Values Hgb A1c (Clinic) 6.5 % (4.0-6.0) H 08/25/24 14:14 Coding Level of Care Code Est Pt Level 4 (09937) Diagnoses Primary hypertension I10 Hypertension type: primary hypertension Class 3 obesity E66.813 Diabetic nephropathy associated with type 2 diabetes mellitus E11.21 Mixed hyperlipidemia E78.2 Hyperlipidemia type: mixed hyperlipidemia Chronic pain of right knee M25.561; G89.29 Chronicity: chronic Chronic midline low back pain without sciatica M54.50; G89.29 Chronicity: chronic Back pain laterality: midline Sciatica presence: without sciatica Additional Codes EMMANUELLE-7 Assessment Billing - EMMANUELLE-7 Assessment Tool: EMMANUELLE-7 Assessment 99462 ([id number]) PHQ-9 - 79019 - PHQ-9 Billing: Yes ([id number]) Assessment & Plan Assessment & Plan (1) Hypertension: Code(s): I10 - Essential (primary) hypertension Category: Medical Qualifiers: Hypertension type: primary hypertension Qualified Code(s): I10 - Essential (primary) hypertension Plan: Patient's blood pressure elevated today in office. Will continue on current antihypertensive medication and work on weight reduction and dietary modifications to reduce his blood pressure. Goal blood pressures to be below 140/90 (2) Class 3 obesity: Code(s): E66.813 - Obesity, class 3 Category: Medical Plan: Patient does understand his BMI is well over 50 will try to be more physically active and adapt to better eating habits to reduce his weight. We did do consider an alternative GLP 1 for weight loss though has been working with an cushion cover inspector in his good glycemic control with Trulicity (3) Diabetic nephropathy associated with type 2 diabetes mellitus: Comment: Pt needs referral to diabetes education for review on DM medication function. Code(s): E11.21 - Type 2 diabetes mellitus with diabetic nephropathy Category: Medical Plan: Will continue to follow fasting blood sugar and A1c is, does have nephropathy associated with his type 2 diabetes. Will continue avoiding any nephrotoxins medication (4) Hyperlipidemia: Code(s): E78.5 - Hyperlipidemia, unspecified Category: Medical Qualifiers: Hyperlipidemia type: mixed hyperlipidemia Qualified Code(s): E78.2 - Mixed hyperlipidemia Plan: Goal LDL to be below 100 (5) Right knee pain: Code(s): M25.561 - Pain in right knee Category: Medical Qualifiers: Chronicity: chronic Qualified Code(s): M25.561 - Pain in right knee; G89.29 - Other chronic pain Plan: Patient reports right knee pain getting worse, likely related again to his weight. He does report having a right knee meniscus tear, and has evidence of knee instability at times. He has seen orthopedic surgeon in the past and recommended surgery though was concerned about anesthesia. Will get x-ray of his right knee to evaluate for any bony abnormality. (6) Low back pain: Code(s): M54.50 - Low back pain, unspecified Category: Medical Qualifiers: Chronicity: chronic Back pain laterality: midline Sciatica presence: without sciatica Qualified Code(s): M54.50 - Low back pain, unspecified; G89.29 - Other chronic pain Plan: Patient has a low back pain likely related to his way. Will get x-ray to start workup. Orders: Orders AMB Hemoglobin A1c 08/25/24 E11.9 - Type 2 diabetes mellitus without complications, I10 - Essential (primary) hypertension Lipid Panel 08/25/24 E78.5 - Hyperlipidemia, unspecified Hemoglobin A1c 08/25/24 E11.9 - Type 2 diabetes mellitus without complications, I10 - Essential (primary) hypertension Comprehensive Cory. Panel Fast 08/25/24 E11.9 - Type 2 diabetes mellitus without complications, I10 - Essential (primary) hypertension Complete Blood Count no Diff 08/25/24 E11.9 - Type 2 diabetes mellitus without complications, I10 - Essential (primary) hypertension Vitamin D 25-OH Total 08/25/24 E55.9 - Vitamin D deficiency, unspecified Microalbumin, Random (w Creat) 08/25/24 I10 - Essential (primary) hypertension XR lumbar spine 4V min Today G89.29 - Other chronic pain, M54.50 - Low back pain, unspecified XR knee RT 3V Today G89.29 - Other chronic pain, M25.561 - Pain in right knee Medications: Changed From losartan-hydrochlorothiazide 100-12.5 mg 1 tab PO DAILY I10 - Essential (primary) hypertension To losartan-hydrochlorothiazide 100-12.5 mg 1 tab PO DAILY 90 days 90 tabs 1RF I10 - Essential (primary) hypertension Refilled atorvastatin 80 mg PO DAILY 90 tabs 3RF E78.5 - Hyperlipidemia, unspecified
[2024-08-25 14:07] VITALS: BP 154/72; PULSE 92; TEMP 36.2; O2SAT 96; BMI 56.6
--- OUTSIDE RECORDS SUMMARY | 2024-08-25 14:29 | XMS_ITS | Clinical Summary ---
Author Organization [facility] Address [address] [facility] [address] [place] [address] Phone Care Team Providers Care Metallurgical Analyst Name Role Phone Ernesto Salter MD Primary Care Provider [phone] Allergies Active Allergy Reactions Criticality Noted Date [...] INCREASED 09/07/19 23 Active [facility] [place] 2 % aerosol APPLY TOPICALLY DAILY FOR [...] Due Date Last Done Comments Pneumococcal Vaccine: 50+ Years (1 of 2 - PCV) 12/25/1982 Colorectal Cancer Screening: Annual FOBT 12/25/2012 Colorectal Cancer Screening: Colonoscopy 12/25/2012 Colorectal Cancer Screening: Sigmoidoscopy 12/25/2012 Diabetes: Ophthalmology Exam 07/12/2020 Diabetes: Pedal Pulse Checked 07/12/2020 Diabetes: Sensory Foot Exam 07/12/2020 Diabetes: Visual Foot Exam 07/12/2020 Diabetes: Hemoglobin A1C 01/09/2023 023, 10/12/2021 Influenza Vaccine (Season Ended) 2024 Hepatitis B Vaccine Aged Out No longe r eligible based on patient's age to complete this topic Procedures Procedure Name Priority Date/Time Associated Diagnosis Comments HEMOGLOBIN A1C Routine 10/09/2022 9:11 AM EDT from Last 3 Months or Most Recently Relevant to Health Maintenance Results * (ABNORMAL) Hemoglobin A1c (10/09/2022 9:11 AM EDT) Hemoglobin A1C 10.0(H) (4.0-5.6) % [facility] Comment: MONITORING: In known diabetic patients, hemoglobin A1c targets should be discussed with health care provider. DIAGNOSTIC USE: ??The [place] Diabetes Association (ADA) and the World Health [...] Supplement 1 Testing performed or reported by [facility], a Service of [facility], [address] [place] [address] Samm Alejandre MD, Curb Worker [facility]# [id number] 10/09/2022 9:11 AM EDT 10/09/2022 9:18 AM EDT us Rafa Mosley MD LAB BLOOD ORDERABLES Final Re sult [facility] from Last 3 Months or Most Recently Relevant to Health Maintenance Insurance Medicaid Medicaid Care Teams Metallurgical Analyst Relationship Specialty Start Date End Date Ernesto Salter MD [address] [place] [address] PCP - General Internal Medicine 10/11/21
--- OUTSIDE RECORDS SUMMARY | 2024-08-25 14:29 | XMS_ITS | Clinical Summary ---
Author Organization [address] [facility] Address [address] [place] [address] Phone Care Team Providers Care Edging Machine Feeder Name Role Phone Abraham Etseban DO Primary Care Provider [phone] Allergies Active Allergy Reactions Criticality Noted Date [...] Encounters Date Type Department Care Team Description 08/18/2024 9:30 AM EDT Office Visit Orthopedic Surgery [facility] [address] [facility] [address] [place] [address] Beatrice, Burke A, DPM Poorly controlled type 2 diabetes mellitus with neuropathy ([facility] V24, [facility] V28) (Primary Dx); Venous stasis dermatitis of both lower extremities; Arthritis of both feet; Dermatophytosis, nail from Last 3 Months Surgical History Surgery Date Site/Laterality Comments OTHER SURGICAL HISTORY 01/17/2016 PROCEDURE: HISTORY OTHER; COMMENT: Endovascular ablation Medical History Medical History Date Comments Chronic venous insufficiency 06/27/2020 DX: Chronic venous insufficiency Type 2 diabetes mellitus wit h hyperosmolarity, uncontrolled ([facility] V24, [facility] V28) DX:Type 2 diabetes mellitus with hyperosmolarity, uncontrolled (HCC) Diabetic neuropathy ([facility] V24, [facility] V28) DX:Diabetic neuropathy ([facility]) Dyslipidemia DX:Dyslipidemia Hypertension DX:Hypertension Microalbuminuria DX:Microalbumin uria Morbid obesity due to excess calories ([facility] V24, [facility] V28) DX:Morbid obesity due to ex cess calories ([facility]) Vitamin D deficiency DX:Vitamin D deficiency Social [...] - - Weight 162 kg (357 lb) 08/18/2024 9:25 AM EDT Height 175.3 cm (5' 9.02 ) 08/18/2024 9:25 AM ED T Body Mass Index 52.7 08/18/2024 9:25 AM EDT Plan of Treatment Upcoming Encounters Date Type Department Care Team (Late st Contact Info) Description 10/18/2024 10:30 AM EDT Office Visit Orthopedic Surgery - [place] [address] [id number] Burke Barron DPM [address] [facility] [address] [place] [address] Health Maintenance Due Date Last Done Comments Diabetes: Annual Foot Exam 12/25/1973 Diabetes: Annual Retina Eye Exam 12/25/1973 Pneumococcal Vaccine: 50+ Years (1 of 2 - PCV) 12/25/1982 Pneumococcal Vaccine: Pediatrics (0 to 5 Years) and At-Risk Patients (6 to 64 Years) (1 of 2 - PCV) 12/25/1982 Zoster Vaccines (1 of 2) 12/25/2013 Colorectal Cancer Screening: Colonoscopy 03/05/2022 Depression Screening 03/05/2022 HIV Screening 03/05/2022 Hepatitis C Screening 03/05/2022 Social Influencers of Health Screening 03/05/2022 COVID-19 Vaccine (1 - 2023-2 5 season) 2023 RSV Immunization Adult Patients (1 - Risk 60-74 years 1-dose series) 2023 Diabetes: Blood Sugar Contro l Test (HGBA1C) 08/18/2024 11/11/2023, 10/09/2022 Diabetes: Annual Urine Albumin-Creatinine Ratio (uACR) 11/10/2024 11/11/2023, 11/11/2023 Influenza Vaccine (Season Ended) 2024 Diabetes: Annual GFR (Glomerular Filtration Rate) 05/18/2025 05/18/2024 Hypertension/CHF/CAD Annual BMP Blood Test 05/18/2025 05/18/2024 Cholesterol Screening (Lipid Panel) 11/10/2028 11/11/2023 DTaP,Tdap,and Td Vaccines (2 - Td or Tdap) 10/22/2032 10/22/2022 HIB Vaccines Aged Out No longer eligi [...] age to complete this topic Meningococcal B Vaccine Aged Out No l onger eligible based on patient's age to complete this topic RSV Immunization Patients Under 20 months Aged Out No longer eligible [...] (11/11/2023) HM Urine Albumin Creatinine Ratio abstracted [facility] Provider MD HEALTH MAINTENANCE Final Result * Hemoglobin A1c (11/11/2023) Hemoglobin A1C 0.0 % Comment:no interpretation, a bstracted Blood Venous blood specimen / Unknown [facility] Provider LAB BLOOD ORDERABLES Anita l Result * Lipid panel (11/11/2023) LDL/HDL Ratio 0 Comment:no interpretation, a bstracted Triglycerides 0 mg/dL Comment:no interpretation, a bstracted Cholesterol 0 mg/dL Comment:no interpretation, a bstracted HDL 0 mg/dL Comment:no interpretation, a bstracted LDL Cholesterol 0 mg/dL Comment:no interpretation, a bstracted Blood Venous blood specimen / Unknown [facility] Provider LAB BLOOD ORDERABLES Anita l Result from Last 3 Months or Most Recently Relevant to Health Maintenance Insurance [facility] [facility] Care Teams Edging Machine Feeder Relationship Specialty Start Date End Date Abraham Esteban DO [facility] [address] [place] [address] PCP - General 01/19/16
== END 2024-08-25 14:54 | disposition home or self-care (01) ==
LOC: HO.HMCH 14:00
PROVIDERS: PCP Physician Assistant; Visit Provider Physician Assistant
DX: I10 Essential (primary) hypertension (principal); E11.21 Type 2 diabetes mellitus with diabetic nephropathy; Z68.43 Body mass index [BMI] 50.0-59.9, adult; E66.813 Obesity, class 3; E78.2 Mixed hyperlipidemia; M25.561 Pain in right knee; G89.29 Other chronic pain; M54.50 Low back pain, unspecified

== ENCOUNTER → 2024-08-25 13:54 | Outpatient (BNVA) | payer OTHER, SELFPAY | PROVIDERS: PCP Physician Assistant; Visit Provider Physician Assistant | DX: I10 Essential (primary) hypertension (principal); E11.21 Type 2 diabetes mellitus with diabetic nephropathy; E78.5 Hyperlipidemia, unspecified; G47.33 Obstructive sleep apnea (adult) (pediatric); G89.29 Other chronic pain; E66.813 Obesity, class 3; E78.2 Mixed hyperlipidemia; M25.561 Pain in right knee; M54.50 Low back pain, unspecified; E55.9 Vitamin D deficiency, unspecified; Z96.41 Presence of insulin pump (external) (internal); Z79.4 Long term (current) use of insulin; Z68.43 Body mass index [BMI] 50.0-59.9, adult | CPT/HCPCS: 83036; 96127; 99212 ==

== ENCOUNTER 2024-11-26 15:32 | Outpatient (REF) | payer OTHER, SELFPAY ==
--- OUTSIDE RECORDS SUMMARY | 2024-11-26 15:41 | XMS_ITS | Clinical Summary ---
Author Organization 175 [facility] Address [address] [place] [address] Phone Care Team Providers Care Yarn Twister Name Role Phone Abraham Esteban DO Primary Care Provider [phone] Allergies Active Allergy Reactions Criticality Noted Date Comments Exenatide 08/22/2022 Insulin Regular 08/22/2022 Iodine 08/22/2022 Lisinopril 08/22/2022 Vancomycin 08/22/2022 Medications miconazole nitrate 2 % aerosol,spray Apply 1 Applicatorful topically daily for 90 days. 3 Active amLODIPine (NORVASC) 10 mg tablet Take [...] Encounters Date Type Department Care Team Description 10/18/2024 10:30 AM EDT Office Visit Orthopedic Surgery [facility] [address] [facility] [address] [place] [address] Burke Barron DPM Controlled type 2 diabetes with neuropathy ([facility] V24, [facility] V28) (Primary Dx); Venous stasis dermatitis of both lower extremities; Arthritis of both feet; Dermatophytosis, nail from Last 3 Months Surgical History Surgery Date Site/Laterality Comments OTHER SURGICAL HISTORY 01/17/2016 PROCEDURE: HISTORY OTHER; COMMENT: Endovascular ablation Medical History Medical History Date Comments Chronic venous insufficiency 06/27/2020 DX: Chronic venous insufficiency Type 2 diabetes mellitus wit h hyperosmolarity, uncontrolled ([facility] V24, [facility] V28) DX:Type 2 diabetes mellitus with hyperosmolarity, uncontrolled (HCC) Diabetic neuropathy ([facility] V24, [facility] V28) DX:Diabetic neuropathy (HCC) Dyslipidemia DX:Dyslipidemia Hypertension DX:Hypertension Microalbuminuria DX:Microalbumin uria Morbid obesity due to excess calories ([facility] V24, [facility] V28) DX:Morbid obesity due to ex cess calories ([facility]) Vitamin D deficiency DX:Vitamin D deficiency Social [...] Care Team (Late st Contact Info) Description 12/20/2024 10:45 AM EDT Office Visit Orthopedic Surgery - [place] [address] [facility] [address] [place] [phone] Burke Barron DPM 175 [facility] [address] [place] [address] Health Maintenance Due Date Last Done Comments Diabetes: Annual Foot Exam 12/25/1973 Diabetes: Annual Retina Eye Exam 12/25/1973 Pneumococcal Vaccine: 50+ Years (1 of 2 - PCV) 12/25/1982 Zoster Vaccines (1 of 2) 12/25/2013 Colorectal Cancer Screening: Colonoscopy 03/05/2022 HIV Screening 03/05/2022 Hepatitis C Screening 03/05/2022 Social Influencers of Health Screening 03/05/2022 COVID-19 Vaccine (1 - 2023-2 5 season) 2023 RSV Immunization Adult Patients (1 - Risk 60-74 years 1-dose series) 2023 Depression Screening 04/07/2024 Diabetes: Annual Urine Albumin-Creatinine Ratio (uACR) 11/10/2024 11/11/2023, 11/11/2023 Influenza Vaccine (#1) 2024 Diabetes: Blood Sugar Contro l Test (HGBA1C) 02/23/2025 08/23/2024, 11/11/2023, 10/09/2022 Diabetes: Annual GFR (Glomerular Filtration Rate) 05/18/2025 [...] (11/11/2023) HM Urine Albumin Creatinine Ratio abstracted [facility] Provider MD HEALTH MAINTENANCE Final Result * Hemoglobin A1c (11/11/2023) Hemoglobin A1C 0.0 % Comment:no interpretation, a bstracted Blood Venous blood specimen / Unknown Result [facility] Provider LAB BLOOD ORDERABLES Anita l Result * Lipid panel (11/11/2023) LDL/HDL Ratio 0 Comment:no interpretation, a bstracted Triglycerides 0 mg/dL Comment:no interpretation, a bstracted Cholesterol 0 mg/dL Comment:no interpretation, a bstracted HDL 0 mg/dL Comment:no interpretation, a bstracted LDL Cholesterol 0 mg/dL Comment:no interpretation, a bstracted Blood Venous blood specimen / Unknown Result [facility] Provider LAB BLOOD ORDERABLES Anita l Result from Last 3 Months or Most Recently Relevant to Health Maintenance Insurance [employer] Care Teams Yarn Twister Relationship Specialty Start Date End Date Abraham Esteban DO [address] [facility] [address] [place] [address] PCP - General 01/19/16
--- OUTSIDE RECORDS SUMMARY | 2024-11-26 15:41 | XMS_ITS | Clinical Summary ---
Author Organization [facility] Address [address] [facility] [address] [place] [address] Phone Care Team Providers Care Geospatial Scientist Name Role Phone Ernesto Salter MD Primary Care Provider [phone] Allergies Active Allergy Reactions Criticality Noted Date [...] INCREASED 09/07/19 23 Active [facility] [place] 2 % aerosol APPLY TOPICALLY DAILY FOR [...] A1C 01/09/2023 023, 10/12/2021 Influenza Vaccine (#1) 2024 Hepatitis B Vaccine Aged Out No longe r eligible based on patient's age to complete this topic Procedures Procedure Name Priority Date/Time Associated Diagnosis Comments HEMOGLOBIN A1C Routine 10/09/2022 9:11 AM EDT from Last 3 Months or Most Recently Relevant to Health Maintenance Results * (ABNORMAL) Hemoglobin A1c (10/09/2022 9:11 AM EDT) Hemoglobin A1C 10.0(H) (4.0-5.6) % [facility] Comment: MONITORING: In known diabetic patients, hemoglobin A1c targets should be discussed with health care provider. DIAGNOSTIC USE: The [place] Diabetes Association (ADA) and the World Health [...] Supplement 1 Testing performed or reported by [facility], a Service of [facility], [address] [place] [address] Samm Alejandre MD, Home Health Rn [facility]# [id number] 10/09/2022 9:11 AM EDT 10/09/2022 9:18 AM EDT us Rafa Mosley MD LAB BLOOD ORDERABLES Final Re sult [facility] from Last 3 Months or Most Recently Relevant to Health Maintenance Insurance Medicaid Medicaid Care Teams Geospatial Scientist Relationship Specialty Start Date End Date Ernesto Salter MD [address] [place], [place] PCP - General Internal Medicine 10/11/21
--- OUTSIDE RECORDS SUMMARY | 2024-11-26 15:41 | XMS_ITS | Clinical Summary ---
Author Organization [facility] Address [address] [facility] [address] [place] [address] Phone Care Team Providers Care Glassworker Name Role Phone Ernesto Salter MD Primary Care Provider [phone] Allergies Active Allergy Reactions Criticality Noted Date Comments Exenatide 08/22/2022 Welts at injection site Inhaled Anesthetics (Halogen Based) 06/25/2023 Direct family history of unexpected due to inhaled anesthetics Iodine 08/22/2022 Lisinopril Cough 08/22/2022 Vancomycin 08/22/2022 Acute kidney disease Medications CEQUR SIMPLICITY 2 unit DeviIndications: Type 2 diabetes mellitus with hyperglycemia, without long-term current use of insulin,Type 2 diabetes mellitus with microalbuminuria , without long-term current use of insulin,Type 2 diabetes mellitus with diabetic polyneuropathy, without long-term current use of insulin 1 Application by Miscellaneous route every 3 (three) days. 10 each 11 06/27/19 Active insulin syringe-needle U-100 0.3 mL 31 gauge x 5/16 SyrgIndications: Type 2 diabetes mellitus with hyperglycemia, without long-term current use of insulin 1 each by Miscellaneous route every 3 (three) days. To fill Cequr insulin delivery device 30 each 1 06/30/19 24 Active BD INSULIN SYRINGE ULTRA-FINE 1 mL 31 gauge x 5/16 Syrg 1 each every 3 (three) days. 06/30/19 24 Active CEQUR SIMPLICITY S[employer]TER [employer] MILLER Misc 1 each daily. 06/27/19 Active atorvastatin (LIPITOR) 80 MG tablet Take 1 tablet by mouth every morning. 07/19/19 Active FREESTYLE CAROLINE 14 DAY SENSOR kitIndications:T ype 2 diabetes mellitus with hyperglycemia, without long-term current use of insulin 1 each by Percutaneous route every 14 (fourteen) days. 6 each 3 05/21/19 25 Active dulaglutide (TRULICITY) 1.5 mg/0.5 mL subcutaneous injectionIndicat ions:Type 2 diabetes mellitus with hyperglycemia, without long-term current use of insulin,Type 2 diabetes mellitus with diabetic polyneuropathy, without long-term current use of insulin Inject 0.5 mL (1.5 mg total) under the skin every 7 days. 6 mL 1 08/24/19 25 Active insulin lispro (ADMELOG, HUMALOG) 100 unit/mL injection vialIndications: Type 2 diabetes mellitus with hyperglycemia, without long-term current use of insulin,Type 2 diabetes mellitus with diabetic polyneuropathy, without long-term current use of insulin Use 3 times a day with food. 70-100 =2 unit 101-150 =4 units 151-200 = 6 units 201-250 =8 units 251-300 =10 units 301-350 =12 units 351-400 =14 units greater than 400 =16 units 60 mL 08/24/19 25 Active TRESIBA FLEXTOUCH U-200 200 unit/mL (3 mL) InPn injection penIndications:T ype 2 diabetes mellitus with hyperglycemia, without long-term current use of insulin,Type 2 diabetes mellitus with diabetic polyneuropathy, without long-term current use of insulin Inject 70 Units under the skin daily. 32 mL 08/24/19 25 Active glucose 4 GM chewable tabletIndication s:Type 2 diabetes mellitus with hyperglycemia, without long-term current use of insulin,Type 2 diabetes mellitus with diabetic polyneuropathy, without long-term current use of insulin Take 4 tablets (16 g total) by mouth as needed for low blood sugar (provide value) (Use as needed for hypoglycemia). 50 tablet 1 08/24/19 25 Active blood-glucose sensor (FREESTYLE CAROLINE 3 PLUS SENSOR) DeviIndications: Type 2 diabetes mellitus with hyperglycemia, without long-term current use of insulin Inject 2 applicators under the skin every 15 (fifteen) days. 6 each 3 10/12/19 25 Active Active Problems Problem Noted Date Diagnosed Date Hyperlipidemia LDL goal <100 11/12/2023 Assessment & Plan (08/23/2024 1:34 PM EDT): Controlled based on last LDL 74 mg/dL continue atorvastatin 80. Assessment & Plan (05/21/2024 12:16 PM EST): Controlled. LDL 74 mg/dL on atorvastatin 80. Assessment & Plan (02/12/2024 12:00 PM EST): Controlled. LDL 77 mg/dL continue atorvastatin 80 mg daily. No changes required. Assessment & Plan (11/12/2023 9:44 AM EDT): Controlled. LDL 74 mg/dL continue atorvastatin 80. Type 2 diabetes mellitus wit h microalbuminuria, without long-term current use of insulin 11/12/2023 Assessment & Plan (11/12/2023 9:45 AM EDT): The patient is on losartan for blood pressure control and renal protection. He states he has CKD. Will obtain comprehensive panel Type 2 diabetes mellitus wit h hyperglycemia, without long-term current use of insulin 06/25/2023 Assessment & Plan (02/12/2024 12:17 PM EST): Presently using 30 units of long-acting basal insulin and 36 units of short acting insulin plus Trulicity. A1c remains the same at 8.4% he has gained 7 pounds. States has been using cough drops that increase his glucose levels. He finds that he was not really eating any sweets for Halloween. So at this point I am increasing the Tresiba to 60 units. I am not changing the correction scale for Humalog continue Trulicity. Repeat lab work in 3 months. Assessment & Plan (11/12/2023 9:46 AM EDT): Uncontrolled. Hemoglobin A1c 8.3% will increase Tresiba to 24 units. Continue Trulicity 1.5 he cannot tolerate a higher dose. He may benefit from SGLT2 inhibitors once his glucose levels improved. He has CKD so this medication is definitely warranted. Assessment & Plan (08/12/2023 12:12 PM EDT): Uncontrolled. His GMI is 7.3%. He had a hemoglobin A1c done at [facility] we requested this. We could not repeat a [id number] hemoglobin A1c because it was done within the last 3 months. Based on the CGM his average glucose is 167 mg/dL and 68% is in range. He needs to be at 70%. He needs slightly better glycemic control but he is doing much better than previously when his hemoglobin A1c was 11.3%. Unfortunately he is not able to get Trulicity 1.5 mg. I think if he were to able to get this with his Tresiba of 12 units a day and lispro being administered through the Cequr insulin delivery device he would do much better and will be controlled. I did prescribe Trulicity 1.5 mg weekly the problem is that this medication is usually on backorder. Hopefully he will be able to obtain it if not then he should continue Trulicity 0.75 mg weekly. If this is the case he may have poor glycemic control and we may have to increase the Tresiba again. He informs me he has a lot of Tresiba at home so I am not going to send a new prescription. However he did not have enough of the lispro vials. He uses 150 units every 3 days through the Cequr insulin delivery device. I gave him a 3-month supply he should be able to have enough. He will return for follow-up in 3 months time. Assessment & Plan (06/25/2023 1:42 PM EDT): Uncontrolled. Hemoglobin A1c is 11.3%, I asked him to increase the Tresiba to 24 units daily, I gave him Humalog correction scale starting at 70-100 = 2 units increasing by 2 units every 50 mg/dL. He cannot get Trulicity through his regular pharmacy so I sent it to [facility]. Sometimes patient has better luck if his mail order. He will continue Trulicity 1.5 mg weekly if he can get it. He would like to Ceque insulin delivery device this has been requested. I will give him a follow- up appointment in 6 weeks. Type 2 diabetes mellitus wit h diabetic polyneuropathy, without long-term current use of insulin 06/25/2023 Assessment & Plan (08/23/2024 1:38 PM EDT): Improved glycemic control hemoglobin A1c 6.4% but this may be because he was having so many lows in the past. His glucose pattern is actually much better. 54% of the glucose levels are in range for the last 2 weeks but still has a lot of highs and although not register lows he has had glucose falling below 70 mg/dL. His balance of basal to bolus insulin is not so great because he is using double the dose of basal insulin. So I will increase the correction scale of Humalog by 2 units. I do not want to increase the Humalog excessively so the new correction scale 70-100 = 12 units increasing by 2 units every 50 mg/dL. Presently he is having hyperglycemia and he has not eaten anything and I can only attribute this to stress elevated cortisol level he is feels tired. He does not complain of illness and does not appear to have any infections. So I told him to use a correction scale at a lower dose starting at 70-100 = 4 units and increasing by 2 units every 50 mg/dL for when his glucose levels are quite high and he has not eaten. He did administer 12 units for glucose of 265 mg/dL in the office. He does not have any glucose tablets so I will give him glucose tablets because he is going to be driving almost 40 minutes and he is not going to presently eat. I will give him a follow-up appointment again in 3 months time. Assessment & Plan (05/21/2024 12:13 PM EST): Uncontrolled. But he did have an improvement in his hemoglobin A1c down to 7.8% from 8.4%. He is still having postprandial hyperglycemia and he is not using the correction scale above. Actually is good that he is not using the correction scale because he is actually injecting more insulin on the set dose. He states he is using 12 units and if he hide use the correction scale would have been less. At this point I gave him a new correction scale starting at 70-100 = 10 units increasing by 2 units every 50 mg/dL I also asked him to increase the Tresiba to 80 units. So by the next visit he is probably cannot be basal heavy and then we should start working on prandial insulin such as Humalog if he is still uncontrolled. He cannot increase the dose of Trulicity due to GI adverse effects. He will follow in 3 months. Assessment & Plan (06/25/2023 1:36 PM EDT): Uncontrolled. Outmp-tg-rogw hemoglobin A1c is Encounters Date Type Department Care Team Description 10/11/2024 Refill [facility] [address] [place] [address] Colleen Shea [place] 10/11/2024 Telephone [facility] [address] [place] [address] Surendra Pimentel, DO Caroline upgrade? (Caroline upgrade?) from Last 3 Months Family History Medical History Relation Comments Heart disease Father Kidney disease Mother Relation Status Comments Father Mother Social History Tobacco Use Types Packs/Day Years Used Date Smoking Tobacco: Never Smokeless Tobacco: Never Tobacco Cessation:Counseling Given: Not Answered Alcohol Use Standard Drinks/Week Comments Never 0 (1 standard drink = 0.6 oz pur e alcohol) Education Answer Date Recorded Are you interested in more education? Not on cris e 12/17/2022 Are you concerned about learning? Not on file 12/17/2022 No 12/17/2022 No 12/17/2022 Digital Access Answer Date Recorded No 12/17/2022 No 12/17/2022 Reliable internet access at home? Not on file 12/17/2022 Device with a working camera? Not on file Sex and Gender Information Value Date Recorded Sex Assigned at Not on file Legal Sex Male 9:42 PM EDT Gender Identity Not on file Sexual Orientation Not on file Last Filed Vital Signs Vital Sign Reading Time Taken Comments Blood Pressure 142/80 08/23/2024 12:55 PM EDT Pulse 76 08/23/2024 12:55 PM EDT Temperature 36.1 C (97 F) 06/25/2023 12:56 PM EDT Respiratory Rate - - Oxygen Saturation 97% 08/23/2024 12: 55 PM EDT Inhaled Oxygen Concentration - - Weight 173.6 kg (382 lb 12.8 oz) 2024 12:55 PM EDT Height 175.3 cm (5' 9 ) 08/23/2024 12:5 5 PM EDT Body Mass Index 56.53 08/23/2024 12:55 PM EDT Plan of Treatment Upcoming Encounters Date Type Department Care Team (Late st Contact Info) Description 12/07/2024 10:30 AM EDT Office Visit [facility] [address] [place] [address] Surendra Pimentel DO [address] [place] [address] Health Maintenance Due Date Last Done Comments Adult Td,Tdap Booster 1965 DEPRESSION SCREENING 1975 HEPATITIS C SCREENING 12/25/1981 HIV ONE-TIME SCREENING (18-65 YEARS) 12/25/1981 PNEUMOCOCCAL VACCINES (50+ years) (1 of 2 - PCV) 12/25/1982 COLOGUARD 12/25/2008 COLONOSCOPY 12/25/2008 COLORECTAL CANCER SCREENING 12/25/2008 FIT TEST 12/25/2008 FOBT 12/25/2008 SIGMOIDOSCOPY 12/25/2008 VIRTUAL COLONOSCOPY 12/25/2008 ZOSTER VACCINES (1 of 2) 12/25/2013 DIABETIC EYE EXAM 06/25/2023 COVID-19 VACCINE (1 - 2023- season) 2023 RSV VACCINE (1 - Risk 60-74 years 1-dose series) 2023 URINE MICROALBUMIN/CREATININE RATIO 11/10/2024 11/11/2023, 10/09/2022 BLOOD PRESSURE 02/23/2025 08/23/2024 HEMOGLOBIN A1C 02/23/2025 08/23/2024, 02/1 04/2024, 02/12/2024, Additional history exists SMOKING STATUS SCREENING (Once After 26 Yrs) Completed 08/23/2024 HEPATITIS A VACCINES Aged Out No long er eligible based on patient's age to complete this topic HIB VACCINES Aged Out No longer eligi ble based on patient's age to complete this topic MENINGOCOCCAL VACCINES (ACWY) Aged Out No longer eligible based on patient's age to complete this topic MENINGOCOCCAL VACCINES (B) Aged Out N o longer eligible based on patient's age to complete this topic Medical Devices Not on file Procedures Procedure Name Priority Date/Time Associated Diagnosis Comments POCT HEMOGLOBIN A1C Routine 08/23/2024 1 :13 PM EDT Type 2 diabetes mellitus with hyperglycemia, without long-term current use of insulin MICROALBUMIN/CREATIN INE RATIO, RANDOM URINE Routine 11/11/2023 2:30 PM EDT Type 2 diabetes mellitus with hyperglycemia, without long-term current use of insulin Type 2 diabetes mellitus with microalbuminuria, without long-term current use of insulin Type 2 diabetes mellitus with diabetic polyneuropathy, without long-term current use of insulin from Last 3 Months or Most Recently Relevant to Health Maintenance Results * (ABNORMAL) POCT Hemoglobin A1c (08/23/2024 1:13 PM EDT) Hemoglobin A1c 6.4(A) 4.2 - 5.6 % Other 08/23/2024 1:13 PM EDT Surendra Pimentel DO POINT OF CARE TEST ORDERABLES Fi nal Result * (ABNORMAL) Microalbumin/creatinine ratio, random urine (11/11/2023 2:30 PM EDT) URINE MICROALBUMIN 8.8(H) 0 - 2.3 mg/dL [facility] URINE CREATININE 149 mg/dL [facility] MICROALB/CRE RATIO 59.1(H) 0 - 20 mg/g Cre [facility] Urine (Urine) 11/11/2023 2:3 0 PM EDT 11/11/2023 2:47 PM EDT Surendra Pimentel DO URINE ORDERABLES Final Result [facility] [address] [place] [address] from Last 3 Months or Most Recently Relevant to Health Maintenance [place] [address] [place] [address] [place] [address] [place] [address] [place] [address] [place] [address] [place] [address] [place] [address] [place] [address] [place] [address] [place] [address] [place] [address] [place] [id number] Care Teams Glassworker Relationship Specialty Start Date End Date Ernesto Salter MD [address] [place] [address] [place] [address] PCP - General Internal Medicine 11/20/22 Additional Source Comments The information contained in this document represents components of the legal health record. It is not the complete legal health record.[facility]
[2024-11-26 17:31] LABS: Hematocrit 41.1 % (42.0-52.0); Hemoglobin 13.9 g/dl (14.0-18.0); Mean Corpuscular HGB Conc 33.8 g/dl (31.0-36.0); Mean Corpuscular Hemoglobin 29.7 pg (27.0-33.0); Mean Corpuscular Volume 87.8 fL (80.0-98.0); NRBC Abs Auto 0.000 X10*3/uL (0.0-0.012); NRBC Pct Auto 0.0 /100WBC (0.0-0.2); Platelet Count 167 X10*3/uL (160-400); Red Blood Count 4.68 X10*6/uL (4.60-5.80); White Blood Count 8.7 X10*3/uL (4.8-10.8)
[2024-11-26 17:37] LABS: Hemoglobin A1C 195.4951 umol/L; Total Hemoglobin (HGBA1C) 3633.4608 umol/L
[2024-11-26 18:19] LABS: Alanine Aminotransferase 20 U/L (0-40); Albumin Level 3.7 g/dL (3.5-5.0); Alkaline Phosphatase 105 U/L (39-117); Anion Gap 13 (12-20); Aspartate Amino Transferase 27 U/L (5-37); Blood Urea Nitrogen 18 mg/dL (9-16); Calcium 9.3 mg/dL (8.4-10.2); Carbon Dioxide 25 mmol/L (22-29); Chloride 105 mmol/L (96-108); Cholesterol 178 mg/dL (<200); Estimated Glomerular Filt Rate > 60; HDL Cholesterol 37 mg/dL (>40); Potassium 3.9 mmol/L (3.3-5.1); Sodium 139 mmol/L (135-145); Total Protein 8.6 g/dL (6.5-8.0); Triglycerides 107 mg/dL (<150)
[2024-11-26 19:38] LABS: Microalbum/Creatinine Ratio Ur 84.0 ug/mg cr (<30)
== END 2024-11-26 15:33 | disposition home or self-care (01) ==
LOC: HO.LAB 15:32
PROVIDERS: Absent Provider Internal Medicine Endocrinology, Diabetes & Metabolism; PCP Physician Assistant; Visit Provider Physician Assistant
DX: E11.42 Type 2 diabetes mellitus with diabetic polyneuropathy (principal); E11.65 Type 2 diabetes mellitus with hyperglycemia; E78.5 Hyperlipidemia, unspecified; I10 Essential (primary) hypertension; E55.9 Vitamin D deficiency, unspecified
CPT/HCPCS: 36415; 80053; 80061; 82043; 82306; 82570; 83036; 85027

== ENCOUNTER 2024-11-29 11:18 | Outpatient (AMB) | payer OTHER, SELFPAY ==
--- NOTE | 2024-11-29 11:36 | A.OFFPC_ITS ---
Vital Signs 11/29/24 11:37 Height 5 ft 9 in Weight 375 lb 4 oz BMI 55.4 BP 120/66 Blood Pressure Location Lt brachial Position Sitting Pulse 85 Pulse Source Pulse Oximeter Temp 97.3 F Temp Source Temporal Artery Scan Pulse Oximetry (%) 97 Oxygen Delivery Method Room Air Intake Visit Reasons: 3 MO f/u DMII/ HTN/A1C needed Intake Note: Patient is here to follow up on DMII, HTN. Restaurant Managing Partner Required: No Auto Suspension And Steering Mechanic: Not Required per policy Accompanied by: Self / Same As Patient Allergies metformin Allergy (Intermediate, Verified 11/29/24 11:51) Diarrhea exenatide (Bydureon) Allergy (Unknown, Verified 11/29/24 11:51) welts, vomiting iodine Allergy (Unknown, Verified 11/29/24 11:51) vomiting lisinopril Allergy (Unknown, Verified 11/29/24 11:51) cough vancomycin (VANCOMYCIN) Allergy (Unknown, Verified 11/29/24 11:51) UNKNOWN Insulin Allergy (Unknown, Uncoded 11/29/24 11:51) swelling Medication List - Last Reconciled 11/29/24 by Hair Yang PA-C amlodipine 10 mg PO DAILY atorvastatin 80 mg PO DAILY blood sugar diagnostic (FreeStyle Lite Strips) As directed three times a day cholecalciferol (vitamin D3) (Vitamin D3) 125 mcg PO DAILY dulaglutide (Trulicity) 1.5 mg (0.5 mL) topical QWEEK flash glucose scanning reader (FreeStyle Caroline 14 Day Sabine) As directed flash glucose sensor (FreeStyle Caroline 14 Day Sensor kit) 1 ea topical Q2W insulin degludec (Tresiba FlexTouch U-200 insulin) 30 units (0.15 mL) subcut BEDTIME 30 days insulin lispro subcut lancets (FreeStyle Lancets) 4 times a day losartan-hydrochlorothiazide 100-12.5 mg 1 tab PO DAILY 90 days pen needle, diabetic (BD Ultra-Fine Isabel Pen Needle) As directed four times a day Tobacco use date assessed: 11/29/24 Dental Screening Dental Screen Date: 05/25/24 HPI 3 MO f/u DMII/ HTN/A1C needed HPI Details Patient has a 58-year-old male here today for a follow-up visit. Patient has a past medical history significant for Type 2 Diabetes Mellitus, class 3 obesity, hyperlipidemia and obstructive sleep apnea. Concern-- > A heart murmur was detected during the examination, and the patient has been advised to undergo a cardiac ultrasound for further evaluation. The patient has not previously been informed of this condition. --> The patient reports chronic lower back pain, which is persistent and worsens with prolonged standing or physical activity. The pain is described as severe enough to require assistance when standing after sitting for extended periods. An x-ray has been ordered to further evaluate the condition. Type 2 diabetes: He actively utilizes an insulin pump and has had recent medication changes due to pronounced glucose variability, likely exacerbated by stress. --> Patient followed by an digital cartographer (Dr. Flores) , most recent A1c is 7.1 from 6.5 He has made some recent adjustments in his short-acting insulin. .. Hyperlipidemia: He does report holding his atorvastatin as of late as he has been told statins would raise his blood sugar. He has not been using atorvastatin over the last 4 weeks thus we did see an increase in his LDL to 120. Obesity is significant, with a noted weight increase attributed to various factors, including limited physical activity and dietary measures compounded by lifestyle constraints. The patient expresses concerns over potential surgical options, highlighting a past adverse experience related to anesthesia. Obstructive Sleep Apnea is documented, with previous CPAP use abandoned due to discomfort and nasal dryness despite a water-inspired humidification system. Potential relationship to eustachian tube issues raised by recurrent ear sensations but not associated with pain or typical infections. Chronic knee pain anticipates further intervention discussions, though existent conservative management appears preferred by the patient. [facility] Medical History (Updated 11/29/24 @ 12:07 by Hair Yang PA-C) Diabetic polyneuropathy associated with type 2 diabetes mellitus Vitamin D deficiency Hypertension Dyslipidemia Diabetic nephropathy associated with type 2 diabetes mellitus assisted (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 Brother Past heart attack Social History Household Members: None Housing: Apartment Alcohol intake: never Patient Tobacco Use Status: Never used Tobacco Tobacco use type: Cigarette e-Cigarette/Vaping Use: Never Used Second Hand Smoke Exposure: No service: No Current occupational status: unemployed and disabled Cognitive needs: Yes (cane) Hearing needs: No Vision needs: Yes (reading) Questionnaire Thrive Questionnaire Date Thrive assessed: 08/25/24 I am a: Patient What is your living situation today?: I have a steady place to live Within the past 12 months, did the food you bought not last and you didn't have the money to get more?: Never true Within the past 12 months, did you worry whether your food would run out before you got money to buy more?: I choose not to answer this question Do you have trouble paying for medicines?: No Do you have trouble getting transportation to medical appointments?: No Do you have trouble paying your heating and electricity bill?: No Do you have trouble taking care of your child, family member or friend?: No Do you have trouble with day-to-day activities such as bathing, preparing meals, shopping, managing finances, etc.?: No Are you currently unemployed and looking for a job?: No Are you interested in more education?: No Please select the resources that you would like help with: None Currently or been in a relationship where the following occur: Controlled Financially THRIVE Score: 1 EMMANUELLE-7 AMB Questionnaire EMMANUELLE-7 Date EMMANUELLE - 7 assessed: 08/25/24 Source: Developed by Drs. Huseyin Holt, Alyson Banda, Colin Ragland and colleagues, with an educational madeline from [employer]. Review of Systems Const Denies headache(s) Eyes Denies loss of vision ENT Denies vertigo, Denies dizziness, Denies headache(s) and Denies sore throat Card Denies chest pain, Denies leg edema and Denies lightheadedness Resp Denies cough, Denies hemoptysis and Denies wheezing GI Denies abdominal pain, Denies melena, Denies constipation, Denies diarrhea and Denies vomiting Denies dysuria, Denies urinary frequency and Denies urinary urgency Musc Denies arthralgias, Denies joint swelling, Denies numbness and Denies tingling Neuro Denies Abnormal speech present, Denies behavioral changes, Denies vertigo, Denies dizziness, Denies headache(s), Denies loss of vision, Denies memory loss, Denies numbness and Denies tingling Psych Denies anxiety, Denies behavioral changes, Denies depression, Denies memory loss and Denies panic attacks Luis Alfredo/Lymph Denies easy bleeding and Denies easy bruising Aller/Immun Denies wheezing Physical exam (Primary Care) Vital Signs: Last Vital Signs Temp 97.3 F 11/29/24 11:37 Pulse 85 11/29/24 11:37 BP 120/66 11/29/24 11:37 Pulse Ox 97 11/29/24 11:37 Oxygen Delivery Method Room Air 11/29/24 11:37 BMI result Body Mass Index 55.4 BMI Assessment/Plan discussion: High BMI High, discussed plan: lifestyle, weight reduction, dietary and physical activity Tobacco/Smoking Status: Tobacco use Status Tobacco use date assessed 11/29/24 11/29/24 11:42 Patient Tobacco Use Status Never used Tobacco 11/29/24 11:42 Tobacco use type Cigarette 11/29/24 11:42 e-Cigarette/Vaping Use Never Used 11/29/24 11:42 Thrive Assessment: Date of Thrive Assessment Date Thrive assessed 08/25/24 11/29/24 11:42 Currently or been in a relationship where the following occur: Controlled Financially Const General: healthy appearing, no acute distress, alert and awake Nutritional Appearance: well nourished Orientation/consciousness: oriented to person, oriented to place and oriented to time HENMT Ears: TM's normal bilaterally General nose exam: Normal nasal mucous membranes and turbinates present Eyes Conjunctivae: conjunctivae normal Sclerae: sclerae normal Pupils: Equal, round and reactive pupils present Neck Neck: Yes no lymphadenopathy and Yes no JVD Thyroid: Thyroid normal Carotids: no bruits Resp Effort & Inspection: normal respiratory effort and not tachypneic Auscultation: no crackles, no rales, no rhonchi and no wheezes Cardio Rate: regular rate Rhythm: regular rhythm Heart sounds: no murmurs and normal S1 and S2 GI Palpation (GI): Soft to palpation, nontender, no hepatomegaly and no splenomeg lexii Auscultation: normal bowel sounds Skin General skin exam: no rashes or lesions noted and dry skin Neuro General: oriented to person, oriented to place and oriented to time Cranial nerves: Yes Equal, round and reactive pupils present Speech: No Abnormal speech present Gait exam (Neuro): Normal gait present Motor exam (neuro): no tremor noted Extrem Right upper extremity: full ROM Left upper extremity: full ROM Right lower extremity: full ROM; no edema Left lower extremity: full ROM; no edema Psych Mental Status: mental status grossly normal Speech and movement: Normal speech and movement present Affect: normal affect Attitude: cooperative Thought process: Normal thought process present Coding Level of Care Code Est Pt Level 4 (91976) Diagnoses Primary hypertension I10 Hypertension type: primary hypertension Class 3 obesity E66.813 Diabetic nephropathy associated with type 2 diabetes mellitus E11.21 Mixed hyperlipidemia E78.2 Hyperlipidemia type: mixed hyperlipidemia Chronic midline low back pain without sciatica M54.50; G89.29 Back pain laterality: midline Chronicity: chronic Sciatica presence: without sciatica Systolic murmur R01.1 Assessment & Plan Assessment & Plan (1) Hypertension: Code(s): I10 - Essential (primary) hypertension Category: Medical Qualifiers: Hypertension type: primary hypertension Qualified Code(s): I10 - Essential (primary) hypertension Plan: Patient's blood pressure acceptable today in office.. Will continue on current antihypertensive medication and work on weight reduction and dietary modifications to reduce his blood pressure. Goal blood pressures to be below 140/90 (2) Class 3 obesity: Code(s): E66.813 - Obesity, class 3 Category: Medical Plan: Patient does understand his BMI is well over 50 will try to be more physically active and adapt to better eating habits to reduce his weight. Patient willing to transition to alternative GLP 1. Will start mounjauro and up titrate per response. (3) Diabetic nephropathy associated with type 2 diabetes mellitus: Comment: Pt needs referral to diabetes education for review on DM medication function. Code(s): E11.21 - Type 2 diabetes mellitus with diabetic nephropathy Category: Medical Plan: Will continue to follow fasting blood sugar and A1c is, does have nephropathy associated with his type 2 diabetes. Will continue avoiding any nephrotoxins medication. Will can will transitioned to new GLP 1 Goal A1c is to be below 7.0 (4) Hyperlipidemia: Code(s): E78.5 - Hyperlipidemia, unspecified Category: Medical Qualifiers: Hyperlipidemia type: mixed hyperlipidemia Qualified Code(s): E78.2 - Mixed hyperlipidemia Plan: Most recent lipid panel showing elevated LDL, has been off of statin therapy over the last month due to fears of side effects of hyperglycemia. Advised to restart atorvastatin 80 mg. Goal LDL to be below 100 (5) Low back pain: Code(s): M54.50 - Low back pain, unspecified Category: Medical Qualifiers: Back pain laterality: midline Chronicity: chronic Sciatica presence: without sciatica Qualified Code(s): M54.50 - Low back pain, unspecified; G89.29 - Other chronic pain Plan: Patient has a low back pain likely related to his way. Will get x-ray to start workup. (6) Systolic murmur: Code(s): R01.1 - Cardiac murmur, unspecified Category: Medical Plan: A systolic heart murmur was detected during the examination. A cardiac ultrasound has been recommended to evaluate the murmur further and rule out any significant valvular disease. Orders: Orders CA echo transthoracic complete Today R01.1 - Cardiac murmur, unspecified Comprehensive Eitzen. Panel Fast Today E11.9 - Type 2 diabetes mellitus without complications, I10 - Essential (primary) hypertension Complete Blood Count no Diff Today E11.9 - Type 2 diabetes mellitus without complications, I10 - Essential (primary) hypertension PT Evaluation and Treatment Today M51.9 - Unspecified thoracic, thoracolumbar and lumbosacral intervertebral disc disorder Medications: New tirzepatide (Mounjaro) for 4 weeks 2.5 mg (0.5 mL) subcut QWEEK 2 mL 2RF 4 weeks E11.9 - Type 2 diabetes mellitus without complications, E66.813 - Obesity, class 3, I10 - Essential (primary) hypertension lidocaine 5% leave on most painful area for up to 12 hrs 1 patch topical DAILY 30 ea 1RF 30 days G89.29 - Other chronic pain, M54.50 - Low back pain, unspecified Discontinued dulaglutide (Trulicity) Discontinued Reason: Doctor's Order 1.5 mg (0.5 mL) topical QWEEK 2 mL 2RF E11.65 - Type 2 diabetes mellitus with hyperglycemia
[2024-11-29 11:37] VITALS: BP 120/66; PULSE 85; TEMP 36.3; O2SAT 97; BMI 55.4
--- OUTSIDE RECORDS SUMMARY | 2024-11-29 12:45 | XMS_ITS | Clinical Summary ---
Author Organization [address] [facility] Address [address] [place] [address] Phone Care Team Providers Care Natural Resources Manager Name Role Phone Abraham Esteban DO Primary Care Provider [phone] Allergies Active Allergy Reactions Criticality Noted Date [...] 10:30 AM EDT Office Visit Orthopedic Surgery [facility] [address] [facility] [address] [place] [address] Burke Barron DPM Controlled type 2 diabetes with neuropathy ([facility] V24, [facility] V28) (Primary Dx); Venous stasis dermatitis of both lower extremities; Arthritis of both feet; Dermatophytosis, nail from Last 3 Months Surgical History Surgery Date Site/Laterality Comments OTHER SURGICAL HISTORY 01/17/2016 PROCEDURE: HISTORY OTHER; COMMENT: Endovascular ablation Medical History Medical History Date Comments Chronic venous insufficiency 06/27/2020 DX: Chronic venous insufficiency Type 2 diabetes mellitus wit h hyperosmolarity, uncontrolled ([facility] V24, [facility] V28) DX:Type 2 diabetes mellitus with hyperosmolarity, uncontrolled (HCC) Diabetic neuropathy ([facility] V24, [facility] V28) DX:Diabetic neuropathy (HCC) Dyslipidemia DX:Dyslipidemia Hypertension DX:Hypertension Microalbuminuria DX:Microalbumin uria Morbid obesity due to excess calories ([facility] V24, [facility] V28) DX:Morbid obesity due to ex cess calories ([facility]) Vitamin D deficiency DX:Vitamin D deficiency Social [...] AM EDT Office Visit Orthopedic Surgery - [place] [address] [facility] [address] [place] [phone] Burke Barron DPM [address] [facility] [address] [place] [address] Health Maintenance Due Date Last Done Comments [...] (11/11/2023) HM Urine Albumin Creatinine Ratio abstracted [facility] Provider MD HEALTH MAINTENANCE Final Result * Hemoglobin A1c (11/11/2023) Hemoglobin A1C 0.0 % Comment:no interpretation, a bstracted Blood Venous blood specimen / Unknown Result [facility] Provider LAB BLOOD ORDERABLES Anita l Result * Lipid panel (11/11/2023) LDL/HDL Ratio 0 Comment:no interpretation, a bstracted Triglycerides 0 mg/dL Comment:no interpretation, a bstracted Cholesterol 0 mg/dL Comment:no interpretation, a bstracted HDL 0 mg/dL Comment:no interpretation, a bstracted LDL Cholesterol 0 mg/dL Comment:no interpretation, a bstracted Blood Venous blood specimen / Unknown Result [facility] Provider LAB BLOOD ORDERABLES Anita l Result from Last 3 Months or Most Recently Relevant to Health Maintenance Insurance [facility] Care Teams Natural Resources Manager Relationship Specialty Start Date End Date Abraham Esteban DO [address] [facility] [address] [place] [address] PCP - General 01/19/16
--- OUTSIDE RECORDS SUMMARY | 2024-11-29 12:45 | XMS_ITS | Clinical Summary ---
Author Organization [facility] Address [address] [facility] [address] [place] [id number] Phone Care Team Providers Care Licensing Registration Examiner Name Role Phone Ernesto Salter MD Primary Care Provider [phone] Allergies Active Allergy Reactions Criticality Noted Date [...] (three) days. 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 06/27/19 Active atorvastatin (LIPITOR) 80 MG tablet Take 1 tablet by mouth every morning. 07/19/19 24 Active FREESTYLE CAROLINE 14 DAY SENSOR kitIndications:T [...] He had a hemoglobin A1c done at [facility] we requested this. We could not repeat a [id number] hemoglobin A1c because it was done within [...] regular pharmacy so I sent it to [facility]. Sometimes patient has better luck if his [...] & Plan (06/25/2023 1:36 PM EDT): Uncontrolled. Ohbri-nh-igro hemoglobin A1c is Encounters Date Type Department Care Team Description 10/11/2024 Refill [facility] [address] [place] [address] Colleen Shea [place] 10/11/2024 Telephone [facility] [address] [place] [address] Surendra Pimentel, DO Caroline upgrade? (Caroline upgrade?) [...] 10:30 AM EDT Office Visit [facility] [address] [place] [address] Surendra Pimentel DO [address] [place] [address] Health Maintenance Due Date Last Done Comments [...] URINE MICROALBUMIN 8.8(H) 0 - 2.3 mg/dL [facility] URINE CREATININE 149 mg/dL PHOTOENGRAVER APPRENTICE [facility] MICROALB/CRE RATIO 59.1(H) 0 - 20 mg/g Cre [facility] Urine (Urine) 11/11/2023 2:3 0 PM EDT 11/11/2023 2:47 PM EDT Surendra Pimentel DO URINE ORDERABLES Final Result [facility] [address] [place] [address] from Last 3 Months or Most Recently Relevant to Health Maintenance [place] [address] [place] [address] [place] [address] [place] [address] [place] [address] [place] [address] [place] [address] [address] [place] [id number] Care Teams Licensing Registration Examiner Relationship Specialty Start Date End Date Ernesto Salter MD [address] [place] [address] [place] [address] PCP - General Internal Medicine 11/20/22 Additional Source Comments The information contained in this document represents components of the legal health record. It is not the complete legal health record.[facility]
--- OUTSIDE RECORDS SUMMARY | 2024-11-29 12:45 | XMS_ITS | Clinical Summary ---
Author Organization [facility] Address [address] [facility] [address] [place] [address] Phone Care Team Providers Care Security Systems Administrator Name Role Phone Ernesto Salter MD Primary Care Provider [phone] Allergies Active Allergy Reactions Criticality Noted Date [...] INCREASED 09/07/19 23 Active [facility] [place] 2 % aerosol APPLY TOPICALLY DAILY FOR [...] AM EDT) Hemoglobin A1C 10.0(H) (4.0-5.6) % [facility] Comment: MONITORING: In known diabetic patients, hemoglobin A1c targets should be discussed with health care provider. DIAGNOSTIC USE: The [place] Diabetes Association (ADA) and the World Health [...] Supplement 1 Testing performed or reported by [facility], a Service of [facility], [address] [place] [address] Samm Alejandre MD, Tumbler Tender [facility]# [id number] 10/09/2022 9:11 AM EDT 10/09/2022 9:18 AM EDT us Rafa Mosley MD LAB BLOOD ORDERABLES Final Re sult [facility] from Last 3 Months or Most Recently Relevant to Health Maintenance Insurance Medicaid Medicaid Care Teams Security Systems Administrator Relationship Specialty Start Date End Date Ernesto Salter MD [address] [place], [place] PCP - General Internal Medicine 10/11/21
== END 2024-11-29 12:14 | disposition home or self-care (01) ==
LOC: HO.HMCH 11:19
PROVIDERS: PCP Physician Assistant; Visit Provider Physician Assistant
DX: I10 Essential (primary) hypertension (principal); E66.813 Obesity, class 3; E11.21 Type 2 diabetes mellitus with diabetic nephropathy; Z68.43 Body mass index [BMI] 50.0-59.9, adult; E78.2 Mixed hyperlipidemia; M54.50 Low back pain, unspecified; G89.29 Other chronic pain; R01.1 Cardiac murmur, unspecified

== ENCOUNTER 2024-11-29 11:18 | Outpatient (REF) | payer OTHER, SELFPAY ==
--- NOTE | ~2024-11-29 | XR_ITS ---
EXAMINATION: XR LUMBOSACRAL SPINE WITH OBLIQUES CLINICAL INFORMATION: M54.50 - Low back pain, unspecified COMPARISON: Correlated to CT abdomen and pelvis dated September 15, 2015 TECHNIQUE: AP oblique and lateral views. FINDINGS: Multilevel endplate sclerosis and small marginal osteophyte formation throughout the axial skeleton. No acute cortical disruption or gross malalignment. Facet joint hypertrophy at L5-S1. Mild levoconvex curvature of the lumbar spine. This could be positional. No lytic or blastic lesions. XR/XR lumbar spine 4V min IMPRESSION: Multilevel thoracolumbar spondylosis without acute fracture or gross listhesis. Electronically signed by: Omer Cullen MD 11/29/2024 01:00 PM EDT
--- NOTE | ~2024-11-29 | XR_ITS ---
EXAMINATION: XR KNEE, RIGHT CLINICAL INFORMATION: M25.561 - Pain in right knee COMPARISON: None available. TECHNIQUE: AP, lateral and sunrise views of the right knee. FINDINGS: No acute cortical disruption or malalignment. Joint space involving mostly the lateral compartment with sclerosis along the reticular surface. No lytic or blastic lesions. No suprapatellar bursa joint effusion. Vascular calcifications. No subcutaneous emphysema. XR/XR knee RT 3V IMPRESSION: Bicompartmental osteoarthrosis/osteoarthritis involving mostly the lateral compartment, moderate. Atherosclerosis disease, peripheral.. Electronically signed by: Omer Cullen MD 11/29/2024 12:58 PM EDT
== END 2024-11-29 11:19 | disposition home or self-care (01) ==
LOC: HO.XRAY 11:18
PROVIDERS: PCP Physician Assistant; Visit Provider Physician Assistant
DX: M25.561 Pain in right knee (principal); M54.50 Low back pain, unspecified; G89.29 Other chronic pain; I10 Essential (primary) hypertension; E11.21 Type 2 diabetes mellitus with diabetic nephropathy; E66.813 Obesity, class 3; E78.2 Mixed hyperlipidemia; R01.1 Cardiac murmur, unspecified; Z68.43 Body mass index [BMI] 50.0-59.9, adult; Z79.4 Long term (current) use of insulin; Z79.899 Other long term (current) drug therapy
CPT/HCPCS: 72110; 73562; 99212

== ENCOUNTER → 2024-11-29 12:30 | Outpatient (BNV) | payer OTHER, SELFPAY | PROVIDERS: PCP Physician Assistant; Visit Provider Radiology Diagnostic Radiology | DX: M47.815 Spondylosis without myelopathy or radiculopathy, thoracolumbar region (principal); M17.11 Unilateral primary osteoarthritis, right knee | CPT/HCPCS: 72110; 73562 ==

== ENCOUNTER → 2024-12-03 14:57 | Outpatient (REF) | payer OTHER, SELFPAY ==
--- OUTSIDE RECORDS SUMMARY | 2024-12-03 14:59 | XMS_ITS | Clinical Summary ---
Author Organization [address] [facility] Address [address] [place] [address] Phone Care Team Providers Care Gas Well Pumper Name Role Phone Abraham Esteban DO Primary Care Provider [phone] Allergies Active Allergy Reactions Criticality Noted Date [...] 10:30 AM EDT Office Visit Orthopedic Surgery [facility] [address] [facility] [address] [place] [address] Burke Barron DPM Controlled type 2 diabetes with neuropathy ([facility] V24, [facility] V28) (Primary Dx); Venous stasis dermatitis of both lower extremities; Arthritis of both feet; Dermatophytosis, nail from Last 3 Months Surgical History Surgery Date Site/Laterality Comments OTHER SURGICAL HISTORY 01/17/2016 PROCEDURE: HISTORY OTHER; COMMENT: Endovascular ablation Medical History Medical History Date Comments Chronic venous insufficiency 06/27/2020 DX: Chronic venous insufficiency Type 2 diabetes mellitus wit h hyperosmolarity, uncontrolled ([facility] V24, [facility] V28) DX:Type 2 diabetes mellitus with hyperosmolarity, uncontrolled (HCC) Diabetic neuropathy ([facility] V24, [facility] V28) DX:Diabetic neuropathy (HCC) Dyslipidemia DX:Dyslipidemia Hypertension DX:Hypertension Microalbuminuria DX:Microalbumin uria Morbid obesity due to excess calories ([facility] V24, [facility] V28) DX:Morbid obesity due to ex cess calories ([facility]) Vitamin D deficiency DX:Vitamin D deficiency Social [...] AM EDT Office Visit Orthopedic Surgery - [address] [place] [phone] Burke Barron DPM [address] [place] [phone] Health Maintenance Due Date Last Done Comments [...] (11/11/2023) HM Urine Albumin Creatinine Ratio abstracted [facility] Provider MD HEALTH MAINTENANCE Final Result * Hemoglobin A1c (11/11/2023) Hemoglobin A1C 0.0 % Comment:no interpretation, a bstracted Blood Venous blood specimen / Unknown [facility] Provider LAB BLOOD ORDERABLES Anita l Result * Lipid panel (11/11/2023) LDL/HDL Ratio 0 Comment:no interpretation, a bstracted Triglycerides 0 mg/dL Comment:no interpretation, a bstracted Cholesterol 0 mg/dL Comment:no interpretation, a bstracted HDL 0 mg/dL Comment:no interpretation, a bstracted LDL Cholesterol 0 mg/dL Comment:no interpretation, a bstracted Blood Venous blood specimen / Unknown Result [facility] Provider LAB BLOOD ORDERABLES Anita l Result from Last 3 Months or Most Recently Relevant to Health Maintenance Insurance [facility] Care Teams Gas Well Pumper Relationship Specialty Start Date End Date Abraham Esteban DO [facility] [address] [facility] - General 01/19/16
--- OUTSIDE RECORDS SUMMARY | 2024-12-03 14:59 | XMS_ITS | Clinical Summary ---
Author Organization [facility] Address [address] [facility] [address] [place] [address] Phone Care Team Providers Care Business Center Representative Name Role Phone Ernesto Salter MD Primary Care Provider [phone] Allergies Active Allergy Reactions Criticality Noted Date [...] INCREASED 09/07/19 23 Active [facility] [place] 2 % aerosol APPLY TOPICALLY DAILY FOR [...] AM EDT) Hemoglobin A1C 10.0(H) (4.0-5.6) % [facility] Comment: MONITORING: In known diabetic patients, hemoglobin A1c targets should be discussed with health care provider. DIAGNOSTIC USE: The [place] Diabetes Association (ADA) and the World Health [...] Supplement 1 Testing performed or reported by [facility], a Service of [facility], [address] [place] [address] Samm Alejandre MD, Package Delivery Driver [facility]# [id number] 10/09/2022 9:11 AM EDT 10/09/2022 9:18 AM EDT us Rafa Mosley MD LAB BLOOD ORDERABLES Final Re sult [facility] from Last 3 Months or Most Recently Relevant to Health Maintenance Insurance Medicaid Medicaid Care Teams Business Center Representative Relationship Specialty Start Date End Date Ernesto Salter MD [address] [place], [place] PCP - General Internal Medicine 10/11/21
--- OUTSIDE RECORDS SUMMARY | 2024-12-03 14:59 | XMS_ITS | Clinical Summary ---
Author Organization [facility] Address [address] [facility] [address] [place] [address] Phone Care Team Providers Care Character Impersonator Name Role Phone Ernesto Salter MD Primary Care Provider [phone] Allergies Active Allergy Reactions Criticality Noted Date [...] (three) days. 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 06/27/19 Active atorvastatin [...] He had a hemoglobin A1c done at [facility] we requested this. We could not repeat a [id number] hemoglobin A1c because it was done within [...] regular pharmacy so I sent it to [facility]. Sometimes patient has better luck [...] & Plan (06/25/2023 1:36 PM EDT): Uncontrolled. [id number] hemoglobin A1c is Encounters Date Type Department Care Team Description 10/11/2024 Refill [facility] [address] [place] [address] Colleen Shea [place] 10/11/2024 Telephone [facility] [address] [place] [address] Surendra Pimentel, DO Caroline upgrade? (Caroline upgrade?) [...] 10:30 AM EDT Office Visit [facility] [address] [place] [id number] Surendra Pimentel DO [address] [place] [address] Health Maintenance Due Date Last Done Comments [...] EYE EXAM 06/25/2023 COVID-19 VACCINE (1 - season) 2023 RSV VACCINE (1 - Risk 60-74 years 1-dose series) 2023 INFLUENZA VACCINE (#1) 2024 URINE MICROALBUMIN/CREATININE RATIO 11/10/2024 11/11/2023, 10/09/2022 BLOOD PRESSURE 02/23/2025 08/23/2024 HEMOGLOBIN A1C 02/23/2025 08/23/2024, 0204/2024, 02/12/2024, Additional history exists SMOKING STATUS SCREENING [...] URINE MICROALBUMIN 8.8(H) 0 - 2.3 mg/dL [facility] URINE CREATININE 149 mg/dL FORESTRY SCIENTIST [facility] MICROALB/CRE RATIO 59.1(H) 0 - 20 mg/g Cre [facility] Urine (Urine) 11/11/2023 2:3 0 PM EDT 11/11/2023 2:47 PM EDT Surendra Pimentel DO URINE ORDERABLES Final Result [facility] [address] [place] [address] from Last 3 Months or Most Recently Relevant to Health Maintenance [place] [address] [place] [address] [place] [address] [place] [address] [place] [address] [place] [id number] [place] [address] [place] [address] [id number] [place] [id number] [place] [id number] Care Teams Character Impersonator Relationship Specialty Start Date End Date Ernesto Salter MD [address] [place] [address] [place] [address] PCP - General Internal Medicine 11/20/22 Additional Source Comments The information contained in this document represents components of the legal health record. It is not the complete legal health record.[facility]
--- NOTE | 2024-12-03 15:00 | CA_ITS ---
Transthoracic Echocardiogram Patient (Last, First, Middle): Keshav Palm A Gender: Male Date of : 1965 Age: 58 Procedure Date: 12/03/2024 Procedure Type: Transthoracic Echocardiogram Location: OP Height: 180. cm Weight: 167.83 kg BSA: 2.74 m2 Heart Rate: 86 bpm BP: 172 / 78 mmHg Director Digital Catalogue: ALONDRA Referring MD: Hair Yang PA-C Symptoms: R01.1 - Cardiac murmur, unspecified Study Quality: Technically Difficult w/Contrast ECG Rhythm: Sinus Conclusions: - The left ventricular systolic function is hyperdynamic. The visually estimated ejection fraction is >70%. - There is moderate calcification of the aortic valve. Findings Procedure Information Contrast agent, definity, is being given per protocol without apparent complications. Left Ventricle Normal left ventricular cavity size. There is mildly increased left ventricular wall thickness. The left ventricular systolic function is hyperdynamic. The visually estimated ejection fraction is >70%. There is no evidence of regional wall motion abnormalities. Diastolic function is normal for age. Right Ventricle Normal right ventricular cavity size and systolic function. Atria Both atria are normal in size. Aortic Valve There is moderate calcification of the aortic valve. There is no aortic valve stenosis. There is no aortic valve regurgitation. Mitral Valve The mitral valve was not well visualized. There is no mitral valve regurgitation. There is no mitral valve stenosis. Pulmonic Valve The pulmonic valve is likely normal. Tricuspid Valve There is trace tricuspid valve regurgitation. Tricuspid regurgitation envelope is inadequate for calculation of right ventricular systolic pressure. Great Vessels The asc aorta is normal in size. Venous The inferior vena cava is normal in size and collapses greater than 50% with inspiration. Pericardium/Pleural There is no evidence of pericardial effusion. Prior Study Comparison No significant change compared to prior study dated: 05/07/2016. Measurements 2D Linear Measurements IVSd: 1.09 0.6-0.9/0.6-1.0 cm LVIDd: 5.72 3.9-5.3/4.2-5.9 cm LVIDd Index: 2.09 2.4-3.2/2.2-3.1 cm/m2 LVIDs: 3.64 2.0-3.6 cm LVPWd: 1.13 0.7-1.1 cm LA Diam: 4.10 2.7-3.8/3.0-4.0 cm LAIDs Index: 1.50 1.5-2.3 cm/m2 LV Mass: 325.95 67-162/88-224 g LV Mass Index: 118.96 43-95/49-115 g/m2 LVOT Diam: 2.20 3.0+(-)1.3 cm 2D Systolic Function EF 4C: 80.80 >55% EF 2C: 72.70 >55% EF BiP: 77.20 >55% Mitral Valve MV Pk E: 1.10 MV PK A: 1.04 MV Decel Time: 218.00 E/A: 1.10 E'Lateral: 8.49 E'Medial: 5.77 E/E' Med: 19.10 E/E' Lat: 13.00 PHT: 64.00 MVA PHT: 3.44 Decel Mccreary: 5.06 Aortic Valve AoV Pk Sergey: 2.32 AoV Mn Sergey: 1.67 AoV VTI: 0.38 AoV Pk Grad: 22.00 Aov Mn Grad: 13.00 ALEKSANDER Cont.VTI: 2.22 LVOT LVOT Pk Sergey: 1.32 LVOT Mn Sergey: 0.83 LVOT VTI: 0.22 LVOT Pk Grad: 7.00 LVOT Mn Grad: 3.00 LVOT Diam: 2.20 LVOT Area: 3.80 Diastolic Function MV Pk E: 1.10 MV Pk A: 1.04 E/A: 1.10 E'Medial: 5.77 E/E' Med: 19.10 E' Laterial: 8.49 E/E' Lat: 13.00 Right Ventricle TAPSE (mm): 29.90 TVS' Sergey: 17.30 Great Vessels Aorta Sinus of Valsalva: 3.50 2.0-3.5 cm Ao Asc: 3.40 2.1-3.4 cm Pulmonary Valve PV Pk Sergey: 1.15 Peak PV Grad: 5.00 Updated in Other Vendor System with Status of Final Francisco Blair MD electronically signed on 12/04/2024 12:25:30 PM with status of Final
== END ==
LOC: HO.CARD 14:57
PROVIDERS: Visit Provider Physician Assistant
DX: R01.1 Cardiac murmur, unspecified (principal)
CPT/HCPCS: 93306; Q9957

== ENCOUNTER → 2024-12-03 15:00 | Outpatient (BNV) | payer OTHER, SELFPAY | PROVIDERS: Visit Provider Internal Medicine | DX: I35.8 Other nonrheumatic aortic valve disorders (principal); I51.89 Other ill-defined heart diseases | CPT/HCPCS: 93306 ==

== ENCOUNTER 2025-02-17 12:00 | Outpatient (RCR) | payer OTHER, SELFPAY ==
--- NOTE | 2025-01-19 15:08 | MHC.PT.EP ---
[facility] [place] [facility] [place] [facility] [place] [facility] [address] [phone] F: [phone] F: [phone] F: [phone] F: [phone] Physical Therapy Plan of Care Date of Evaluation: 01/19/25 Date of Surgery: NA Diagnosis: UPPER AND LOWER BACK PAIN Assessment: Pt IS 59 YO M REFERRED TO PT FROM [facility] WITH THORACOLUMBAR AND LUMBOSACRAL INTERVERTEBRAL DISC DISORDER. PRESENTS WITH POOR GT PATTERN (WIDE SHAN), LIMITED TRUNK AND LE FLEXIBILITY, LIMITED LE AND CORE STRENGTH. SHOULD BENEFIT FROM PT TO ADDRESS THESE ISSUES Frequency and Duration: The patient will be seen 2X/WK X 6 WKS Short Term Goals: 1. INCREASED AWARENESS OF POSTURE AND BACK CARE 2. 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 I HEP WITH DC EX PLAN 2. DECREASED BACK PAIN AT LEAST 50% WITH ADLS 3. IMPROVED MOD OSWESTRY (25/50 SOC) Treatment Plan: Modalities to reduce pain, spasms and effusion. Manual therapy to restore motion and function. Therapeutic exercise to improve strength and flexibility. Neuromuscular re-education for posture and balance. Therapeutic activities to return to functional activities of daily living. Electronically signed by: LITO ARVIZU PT Please sign and return to therapist. Thank you for your referral.
--- NOTE | 2025-02-25 16:29 | MHC.PT.DC ---
[facility] [place] [facility] [place] [facility] [place] [facility] [address] Michael Colmenares [address] [phone] F: [phone] F: [phone] F: [phone] F: [phone] Physical Therapy Discharge Report Diagnosis: UPPER AND LOWER BACK PAIN Date of Surgery: NA Date of Evaluation: 01/19/25 Date of Discharge: 02/25/25 Treatments to Date: 8 Cancellations to Date: No Shows to Date: Discharge Status: Achieved Goals Improved Function Independent with HEP Discharge Summary: PER ASSESSMENT FROM LAST SESSION Pt has met all goals Electronically signed by: LITO ARVIZU PT Please sign and return to therapist. Thank you for your referral.
== END 2025-02-25 16:29 | disposition home or self-care (01) ==
LOC: HO.PT 12:00
PROVIDERS: PCP Physician Assistant; Visit Provider Physician Assistant
DX: M51.9 Unspecified thoracic, thoracolumbar and lumbosacral intervertebral disc disorder (principal)
CPT/HCPCS: 97110; 97161; 97530

== ENCOUNTER 2025-03-07 10:50 | Outpatient (AMB) | payer OTHER, SELFPAY ==
[2025-03-07 10:59] VITALS: BP 122/80; PULSE 89; O2SAT 96; BMI 55.2
--- NOTE | 2025-03-07 10:59 | MHC.PC.OV ---
Vital Signs 03/07/25 10:59 Height 5 ft 9 in Weight 374 lb BMI 55.2 BP 122/80 Blood Pressure Location Lt brachial Position Sitting Pulse 89 Pulse Source Pulse Oximeter Pulse Oximetry (%) 96 Oxygen Delivery Method Room Air Intake Visit Reasons: 3 MO f/u DMII/ HTN/A1C needed [employer] Required: No Accompanied by: Self / Same As Patient Allergies metformin Allergy (Intermediate, Verified 03/07/25 11:10) Diarrhea exenatide (Bydureon) Allergy (Unknown, Verified 03/07/25 11:10) welts, vomiting iodine Allergy (Unknown, Verified 03/07/25 11:10) vomiting lisinopril Allergy (Unknown, Verified 03/07/25 11:10) cough vancomycin (VANCOMYCIN) Allergy (Unknown, Verified 03/07/25 11:10) UNKNOWN Insulin Allergy (Unknown, Uncoded 03/07/25 11:10) swelling Medication List - Last Reconciled 03/07/25 by Hair Yang PA-C amlodipine 10 mg PO DAILY atorvastatin 80 mg PO DAILY blood sugar diagnostic (FreeStyle Lite Strips) As directed three times a day cholecalciferol (vitamin D3) (Vitamin D3) 125 mcg PO DAILY flash glucose scanning reader (FreeStyle Caroline 14 Day [place]) As directed flash glucose sensor (FreeStyle Caroline 14 Day Sensor kit) 1 ea topical Q2W insulin degludec (Tresiba FlexTouch U-200 insulin) 30 units (0.15 mL) subcut BEDTIME 30 days insulin lispro subcut lancets (FreeStyle Lancets) 4 times a day lidocaine 5% 1 patch topical DAILY 30 days losartan-hydrochlorothiazide 100-12.5 mg 1 tab PO DAILY 90 days pen needle, diabetic (BD Ultra-Fine Isabel Pen Needle) As directed four times a day tirzepatide (Mounjaro) 5 mg (0.5 mL) subcut QWEEK 4 weeks tirzepatide (Mounjaro) 7.5 mg (0.5 mL) subcut QWEEK 4 weeks Tobacco use date assessed: 03/07/25 Dental Screening Dental Screen Date: 03/07/25 Did you have a dental visit in the last 12 months?: Yes Did you have a dental problem in the last 6 months where you did not have access to dental care?: No Was dental information given to patient?: Patient has dentist HPI 3 MO f/u DMII/ HTN/A1C needed HPI Details Patient has a 59-year-old male here today for a follow-up visit. Patient has a past medical history significant for Type 2 Diabetes Mellitus, class 3 obesity, hyperlipidemia and obstructive sleep apnea. Class 3 obesity: Patient continues on GLP 1 therapy and he has not been able to lose much weight. PLAN: Will increase his Mounjaro dose for better glycemic control and weight reduction .. Aortic valve stenosis: Recent echocardiogram showing moderate aortic valve stenosis. Has upcoming appointment with Cardiology at the end of March 2025. Otherwise no overt signs of Congestive heart failure noted. Low back pain: Has gotten better since doing physical therapy Type 2 diabetes: He actively utilizes an insulin pump and has had recent medication changes due to pronounced glucose variability, likely exacerbated by stress. --> Patient followed by an overedge sewer (Dr. Flores). PLAN: Will increase his Mounjaro to a higher dose for better glycemic control and weight reduction. --> He does admit to dietary indiscretion .. Microscopic hematuria: Patient does report having a history of microscopic hematuria is and interested in getting a urinalysis to eval if this is still true. He does not see any gross hematuria. He is a former smoker or uses any drugs or alcohol. .. Hyperlipidemia: He does report holding his atorvastatin as of late as he has been told statins would raise his blood sugar. He has not been using atorvastatin over the last 4 weeks thus we did see an increase in his LDL to 120. Obstructive Sleep Apnea is documented, with previous CPAP use abandoned due to discomfort and nasal dryness despite a water-inspired humidification system. Potential relationship to eustachian tube issues raised by recurrent ear sensations but not associated with pain or typical infections. .. 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 Brother Past heart attack Social History Household Members: None Housing: Apartment Alcohol intake: never Patient Tobacco Use Status: Never used Tobacco Tobacco use type: Cigarette e-Cigarette/Vaping Use: Never Used Second Hand Smoke Exposure: No service: No Current occupational status: unemployed and disabled Cognitive needs: Yes (cane) Hearing needs: No Vision needs: Yes (reading) Questionnaire PHQ-9 Over the last 2 weeks, how often have you been bothered by any of the following problems? 1. Little interest or pleasure in doing things: more than half the days 2. Feeling down, depressed, or hopeless: not at all 3. Trouble falling or staying asleep, or sleeping too much: nearly every day 4. Feeling tired or having little energy: nearly every day 5. Poor appetite or overeating: not at all 6. Feeling bad about yourself - or that you are a failure or have let yourself or your family down: not at all 7. Trouble concentrating on things, such as reading the newspaper or watching television: not at all 8. Moving or speaking so slowly that other people could have noticed. Or the opposite - being so fidgety or restless that you have been moving around a lot more than usual: not at all 9. Thoughts that you would be better off or of hurting yourself in some way: not at all Total score: 8 Depression Screening Interpretation: Positive Depression Screening Follow-up: Existing condition and Declines treatment Depression Screening Done: Yes 38286 - PHQ-9 Billing: Patient declined-do not bill Source: Developed by Drs. Huseyin Holt, Alyson Banda, Colin Ragland and colleagues, with an educational madeline from [employer]. Thrive Questionnaire Date Thrive assessed: 03/07/25 I am a: Patient What is your living situation today?: I have a steady place to live Within the past 12 months, did the food you bought not last and you didn't have the money to get more?: Never true Within the past 12 months, did you worry whether your food would run out before you got money to buy more?: I choose not to answer this question Do you have trouble paying for medicines?: No Do you have trouble getting transportation to medical appointments?: No Do you have trouble paying your heating and electricity bill?: No Do you have trouble taking care of your child, family member or friend?: No Do you have trouble with day-to-day activities such as bathing, preparing meals, shopping, managing finances, etc.?: No Are you currently unemployed and looking for a job?: No Are you interested in more education?: No Please select the resources that you would like help with: None Currently or been in a relationship where the following occur: Controlled Financially THRIVE Score: 1 AUDIT C Alcohol Use Questionnaire (AUDIT-C) 1. How often do you have a drink containing alcohol?: Never 3. How often do you have six or more drinks on one occasion?: Never Total Score: 0 EMMANUELLE-7 AMB Questionnaire EMMANUELLE-7 Date EMMANUELLE - 7 assessed: 03/07/25 Feeling nervous, anxious, or on edge: 0 = Not at all Not being able to stop or control worryin = Not at all Worrying too much about different things: 0 = Not at all Trouble relaxin = Not at all Being so restless that it is hard to sit still: 0 = Not at all Becoming easily annoyed or irritable: 0 = Not at all Feeling afraid as if something awful might happen: 0 = Not at all Total EMMANUELLE-7 score (0-4 normal; 5-9 mild; 10-14 moderate; 15-21 severe): 0 Source: Developed by Drs. Huseyin Holt, Alyson Banda, Colin Ragland and colleagues, with an educational madeline from [employer]. EMMANUELLE-7 Assessment Billing EMMANUELLE-7 Assessment Tool: EMMANUELLE-7 Assessment 34711 Physical exam (Primary Care) Vital Signs: Last Vital Signs Pulse 89 03/07/25 10:59 BP 122/80 03/07/25 10:59 Pulse Ox 96 03/07/25 10:59 Oxygen Delivery Method Room Air 03/07/25 10:59 BMI result Body Mass Index 55.2 Tobacco/Smoking Status: Tobacco use Status Tobacco use date assessed 03/07/25 03/07/25 11:01 Patient Tobacco Use Status Never used Tobacco 03/07/25 11:01 Tobacco use type Cigarette 03/07/25 11:01 e-Cigarette/Vaping Use Never Used 03/07/25 11:01 PHQ-9: PHQ-9 Score PHQ-9: Total score 8 03/07/25 12:59 Depression Screening Interpretation: Positive Depression Screening Follow-up: Existing condition and Declines treatment Thrive Assessment: Date of Thrive Assessment Date Thrive assessed 03/07/25 03/07/25 11:01 Currently or been in a relationship where the following occur: Controlled Financially Results AMB Hemoglobin A1c AMB Hemoglobin A1c 6.2 % Last Edit by SOFIA Quiroz on 03/07/25 11:14 Results Reviewed Results Reviewed: Laboratory Last Values Hgb A1c (Clinic) 6.2 % (4.0-6.0) H 03/07/25 11:01 Coding Level of Care Code Est Pt Level 4 (68902) Diagnoses Microscopic hematuria R31.29 Primary hypertension I10 Hypertension type: primary hypertension Class 3 obesity E66.813 Diabetic nephropathy associated with type 2 diabetes mellitus E11.21 Mixed hyperlipidemia E78.2 Hyperlipidemia type: mixed hyperlipidemia Additional Codes EMMANUELLE-7 Assessment Billing - EMMANUELLE-7 Assessment Tool: EMMANUELLE-7 Assessment [id number] ([id number]) Assessment & Plan Assessment & Plan (1) Microscopic hematuria: Code(s): R31.29 - Other microscopic hematuria Category: Medical Plan: Patient reports a history of microscopic hematuria thus will check in on a urinalysis and urine cytology. (2) Hypertension: Code(s): I10 - Essential (primary) hypertension Category: Medical Qualifiers: Hypertension type: primary hypertension Qualified Code(s): I10 - Essential (primary) hypertension Plan: Patient's blood pressure acceptable today in office.. Will continue on current antihypertensive medication and work on weight reduction and dietary modifications to reduce his blood pressure. Goal blood pressures to be below 140/90 (3) Class 3 obesity: Code(s): E66.813 - Obesity, class 3 Category: Medical Plan: Patient does understand his BMI is well over 50 will try to be more physically active and adapt to better eating habits to reduce his weight. Patient willing to transition to alternative GLP 1. Will continue to titrate up Mounjaro dose (4) Diabetic nephropathy associated with type 2 diabetes mellitus: Comment: Pt needs referral to diabetes education for review on DM medication function. Code(s): E11.21 - Type 2 diabetes mellitus with diabetic nephropathy Category: Medical Plan: Will continue to follow fasting blood sugar and A1c is, does have nephropathy associated with his type 2 diabetes. Will continue avoiding any nephrotoxins medication. Goal A1c is to be below 7.0 (5) Hyperlipidemia: Code(s): E78.5 - Hyperlipidemia, unspecified Category: Medical Qualifiers: Hyperlipidemia type: mixed hyperlipidemia Qualified Code(s): E78.2 - Mixed hyperlipidemia Plan: Most recent LDL slightly elevated above 100, he has restarted statin therapy thus will recheck lipid panel prior to next visit. Goal LDL to be below 100 Orders: Orders AMB Hemoglobin A1c Today E11.65 - Type 2 diabetes mellitus with hyperglycemia, E11.9 - Type 2 diabetes mellitus without complications Lipid Panel Today E78.5 - Hyperlipidemia, unspecified AMB Hemoglobin A1c Today Z13.9 - Encounter for screening, unspecified Vitamin D 25-OH Total Today E55.9 - Vitamin D deficiency, unspecified Prostate Specific Antigen Scr Today E55.9 - Vitamin D deficiency, unspecified, Z12.5 - Encounter for screening for malignant neoplasm of prostate UA CC w/rflx Micro + Cult Today R30.0 - Dysuria, R31.29 - Other microscopic hematuria Urine Cytology Today R31.29 - Other microscopic hematuria Medications: New tirzepatide (Mounjaro) 10 mg (0.5 mL) subcut QWEEK 2 mL 3RF 4 weeks E11.65 - Type 2 diabetes mellitus with hyperglycemia, E66.813 - Obesity, class 3 On Hold tirzepatide (Mounjaro) Hold Comment: Doctor's Order 7.5 mg (0.5 mL) subcut QWEEK 4 weeks 2 mL 2RF E11.21 - Type 2 diabetes mellitus with diabetic nephropathy
--- OUTSIDE RECORDS SUMMARY | 2025-03-07 13:58 | XMS_ITS | Clinical Summary ---
Author Organization [facility] Address [address] [place] [phone] Phone Care Team Providers Care High School Science Tutor Name Role Phone Hair Yang Primary Care Provider + Allergies Active Allergy Reactions Criticality Noted Date Comments Exenatide 08/22/2022 Welts at injection site Inhaled Anesthetics (Halogen Based) 06/25/2023 Direct family history of unexpected due to inhaled anesthetics Iodine 08/22/2022 Lisinopril Cough 08/22/2022 Vancomycin 08/22/2022 Acute kidney disease Medications insulin syringe-needle U-100 0.3 mL 31 gauge x 5/16 SyrgIndication s:Type 2 diabetes mellitus with hyperglycemia, without long-term current use of insulin 1 each by Miscellaneous route every 3 (three) days. To fill Cequr insulin delivery device 30 each 1 4 Active BD INSULIN SYRINGE ULTRA-FINE 1 mL 31 gauge x 5/16 Syrg 1 each every 3 (three) days. 4 Active FREESTYLE ANA 14 DAY SENSOR kitIndications :Type 2 diabetes mellitus with hyperglycemia, without long-term current use of insulin 1 each by Percutaneous route every 14 (fourteen) days. 6 each 3 5 Active insulin lispro (ADMELOG, HUMALOG) 100 unit/mL injection vialIndication s:Type 2 diabetes mellitus with hyperglycemia, without long-term current use of insulin,Type 2 diabetes mellitus with diabetic polyneuropathy , without long-term current use of insulin Use 3 times a day with food. 70-100 =2 unit 101-150 =4 units 151-200 = 6 units 201-250 =8 units 251-300 =10 units 301-350 =12 units 351-400 =14 units greater than 400 =16 units 60 mL 1 5 Active TRESIBA FLEXTOUCH U-200 200 unit/mL (3 mL) InPn injection penIndications :Type 2 diabetes mellitus with hyperglycemia, without long-term current use of insulin,Type 2 diabetes mellitus with diabetic polyneuropathy , without long-term current use of insulin Inject 70 Units under the skin daily. 32 mL 1 5 Active glucose 4 GM chewable tabletIndicati ons:Type 2 diabetes mellitus with hyperglycemia, without long-term current use of insulin,Type 2 diabetes mellitus with diabetic polyneuropathy , without long-term current use of insulin Take 4 tablets (16 g total) by mouth as needed for low blood sugar (provide value) (Use as needed for hypoglycemia). 50 tablet 1 5 Active blood-glucose sensor (FREESTYLE ANA 3 PLUS SENSOR) DeviIndication s:Type 2 diabetes mellitus with hyperglycemia, without long-term current use of insulin Inject 2 applicators under the skin every 15 (fifteen) days. 6 each 3 5 Active losartan-hydro CHLOROthiazide (HYZAAR) 100-12.5 mg per tablet 5 Active rosuvastatin (CRESTOR) 40 MG tabletIndicati ons:Hyperlipid emia LDL goal <70 Take 1 tablet (40 mg total) by mouth daily. 90 tablet 1 5 Active CEQUR SIMPLICITY 2 unit insulin pump patchIndicatio ns:Type 2 diabetes mellitus with hyperglycemia, without long-term current use of insulin,Type 2 diabetes mellitus with microalbuminur ia, without long-term current use of insulin,Type 2 diabetes mellitus with diabetic polyneuropathy , without long-term current use of insulin INJECT 1 EACH UNDER THE SKIN EVERY 3 (THREE) DAYS. 8 each 11 5 Active Active Problems Problem Noted Date Diagnosed Date Anemia 12/07/2024 Assessment & Plan (12/07/2024 11:27 AM EDT): He has mild anemia which can result in falsely low hemoglobin A1c. His MCV is 87. So I will check B12, folate levels. Since her MCV is not low I am not going to check iron levels. Hyperlipidemia LDL goal <100 11/12/2023 Assessment & Plan (12/07/2024 11:26 AM EDT): Uncontrolled based on new guidelines LDL should be less than 70 his LDL was 120 mg/dL and he has low HDL. He is taking atorvastatin 80 mg which is the maximum dose. Will switch him to rosuvastatin 40 mg which works a little bit better but still may not be enough and he may require ezetimibe 10 mg in addition. He should repeat lipid panel in 3 months. Assessment & Plan (08/23/2024 1:34 PM EDT): [...] use of insulin 06/25/2023 Assessment & Plan (12/07/2024 11:22 AM EDT): Uncontrolled he only has 52% in range. However based on hemoglobin A1c of 7.1 it seems to be fair control. Although the CGM correlates more with hemoglobin A1c of 7.5%. The problem now is that because he has been switched to Mounjaro at the lowest dose therefore his glucose levels are going to increase until he gets to an adequate higher dose of Mounjaro. I do not want to make any changes to his insulin regimen at the present time knowing that this is going to occur. I think he will likely do better with Mounjaro over Trulicity because it is a much better medication. But the titration process unfortunately is going to cause higher glucose levels. It is possible that he is going to require less Tresiba and may be less Humalog administration after he is reach the highest dose of Mounjaro. I asked him not to just stop his insulin and typically we tend to decreased her insulin if he is having hypoglycemia. So he should let me know in the future. Assessment & Plan (02/12/2024 12:17 PM EST): [...] He had a hemoglobin A1c done at [facility] we requested this. We could not repeat a [id number] hemoglobin A1c because it was done within [...] regular pharmacy so I sent it to [facility]. Sometimes patient has better luck if [...] & Plan (06/25/2023 1:36 PM EDT): Uncontrolled. [id number] hemoglobin A1c is Encounters Date Type Department Care Team Description 12/15/2024 Refill [facility] [address] [place] [address] Surendra Pimentel, DO Med Change Request 12/07/2024 10:30 AM EDT Office Visit [facility] [address] [place] [address] Surendra Pimentel DO Type 2 diabetes mellitus with hyperglycemia, without long-term current use of insulin (Primary Dx); Hyperlipidemia LDL goal <70; Type 2 diabetes mellitus with microalbuminuria, without long-term current use of insulin; Type 2 diabetes mellitus with diabetic polyneuropathy, without long-term current use of insulin; Anemia, unspecified type 12/07/2024 Refill [facility] [address] [place] [address] Colleen Shea MA Medication Refill from Last 3 Months Family History Medical [...] Sign Reading Time Taken Comments Blood Pressure 155/87 12/07/2024 10:27 AM EDT Pulse 92 12/07/2024 10:27 AM EDT Temperature 36.1 C (97 F) 06/25/2023 12:56 PM EDT Respiratory Rate - - Oxygen Saturation 97% 12/07/2024 10: 27 AM EDT Inhaled Oxygen Concentration - - Weight 169.5 kg (373 lb 9.6 oz) 025 10:27 AM EDT Height 175.3 cm (5' 9.02 ) 12/07/2024 1 0:27 AM EDT Body Mass Index 55.15 12/07/2024 10:27 AM EDT Plan of Treatment Upcoming Encounters Date Type Department Care Team (Late st Contact Info) Description 04/06/2025 11:50 AM EST Office Visit [facility] [address] [place] [phone] Surendra Pimentel DO [address] [place] [address] Health Maintenance Due Date Last Done Comments Adult Td,Tdap Booster 1963 DEPRESSION SCREENING 1975 HEPATITIS C SCREENING 12/25/1981 HIV ONE-TIME SCREENING (18-65 YEARS) 12/25/1981 PNEUMOCOCCAL VACCINES (50+ years) (1 of 2 - PCV) 12/25/1982 COLOGUARD 12/25/2008 COLONOSCOPY 12/25/2008 COLORECTAL CANCER SCREENING 12/25/2008 FIT TEST 12/25/2008 FOBT 12/25/2008 SIGMOIDOSCOPY 12/25/2008 VIRTUAL COLONOSCOPY 12/25/2008 RSV VACCINE (1 - Risk 50-74 years 1-dose series) 12/25/2013 ZOSTER VACCINES (1 of 2) 12/25/2013 DIABETIC EYE EXAM 06/25/2023 INFLUENZA VACCINE (#1) 2024 COVID-19 VACCINE ( - 2024- season) 2024 HEMOGLOBIN A1C 02/23/2025 08/23/2024, 05/08, 02/12/2024, Additional history exists POTASSIUM LEVEL 05/18/2025 05/18/2024 BLOOD PRESSURE 06/06/2025 12/07/2024 CREATININE LEVEL 11/29/2025 11/29/2024, 05/18/2024 SMOKING STATUS SCREENING (Once After 26 Yrs) [...] Procedure Name Priority Date/Time Associated Diagnosis Comments COMPREHENSIVE METABOLIC PANEL (CMP) Routine 11/29/2024 11:22 AM EDT Type 2 diabetes mellitus with hyperglycemia, without long-term current use of insulin Type 2 diabetes mellitus with diabetic polyneuropathy, without long-term current use of insulin POCT HEMOGLOBIN A1C Routine 08/23/2024 1 :13 PM EDT Type 2 diabetes mellitus with hyperglycemia, without long-term current use of insulin COMPREHENSIVE METABOLIC PANEL (CMP) Routine 05/18/2024 3:01 PM EST Type 2 diabetes mellitus with hyperglycemia, without long-term current use of insulin from Last 3 Months or Most Recently Relevant to Health Maintenance Results * Comprehensive metabolic panel (11/29/2024 11:22 AM EDT) Only the most recent of2 resultswithin the time period is included. Blood Surendra Pimentel DO LAB BLOOD BKR ORDERABLES Final R esult [address] [id number] * (ABNORMAL) POCT Hemoglobin A1c (08/23/2024 1:13 PM EDT) Hemoglobin A1c 6.4(A) 4.2 - 5.6 % Other 08/23/2024 1:13 PM EDT Surendra Pimentel DO LAB POCT ENTER/EDIT ORDERABLES F inal Result from Last 3 Months or Most Recently Relevant to Health Maintenance Insurance [facility] [address] [address] [place] [id number] [place] [address] [place] [address] [place] [address] [place] [id number] [place] [address] [place] [place] [place] [address] ACO Care Teams High School Science Tutor Relationship Specialty Start Date End Date Hair Yang PA [address] [place] [id number] PCP - General Physician Die Tripper 12/07/24 Additional Source Comments The information contained in this document represents components of the legal health record. It is not the complete legal health record.[facility]
== END 2025-03-07 11:37 | disposition home or self-care (01) ==
LOC: HO.HMCH 10:51
PROVIDERS: PCP Physician Assistant; Visit Provider Physician Assistant
DX: R31.29 Other microscopic hematuria (principal); I10 Essential (primary) hypertension; E66.813 Obesity, class 3; E11.21 Type 2 diabetes mellitus with diabetic nephropathy; E78.2 Mixed hyperlipidemia; E11.65 Type 2 diabetes mellitus with hyperglycemia

== ENCOUNTER → 2025-03-07 10:50 | Outpatient (BNVA) | payer OTHER, SELFPAY | PROVIDERS: PCP Physician Assistant; Visit Provider Physician Assistant | DX: E11.21 Type 2 diabetes mellitus with diabetic nephropathy (principal); E11.65 Type 2 diabetes mellitus with hyperglycemia; G47.33 Obstructive sleep apnea (adult) (pediatric); I35.0 Nonrheumatic aortic (valve) stenosis; M54.50 Low back pain, unspecified; R31.29 Other microscopic hematuria; E78.2 Mixed hyperlipidemia; E66.813 Obesity, class 3; Z68.43 Body mass index [BMI] 50.0-59.9, adult | CPT/HCPCS: 83036; 96127; 99212 ==

== ENCOUNTER 2025-04-04 13:14 | Outpatient (AMB) | payer OTHER, SELFPAY ==
--- NOTE | 2025-04-04 13:18 | MHC.OFFVIS ---
Vital Signs 04/04/25 13:19 Height 5 ft 9 in Weight 368 lb 2.751 oz BMI 54.4 BP 140/80 H Blood Pressure Location Lt brachial Position Sitting Pulse 95 Pulse Source Monitor Intake Visit Reasons: SEXER/ Jose Trey/ / murmur Allergies metformin Allergy (Intermediate, Verified 03/07/25 11:10) Diarrhea exenatide (Bydureon) Allergy (Unknown, Verified 03/07/25 11:10) welts, vomiting iodine Allergy (Unknown, Verified 03/07/25 11:10) vomiting lisinopril Allergy (Unknown, Verified 03/07/25 11:10) cough vancomycin (VANCOMYCIN) Allergy (Unknown, Verified 03/07/25 11:10) UNKNOWN Insulin Allergy (Unknown, Uncoded 03/07/25 11:10) swelling Medication List - Last Reconciled 04/04/25 by Francisco Blair MD amlodipine 10 mg PO DAILY atorvastatin 80 mg PO DAILY blood sugar diagnostic (FreeStyle Lite Strips) As directed three times a day flash glucose scanning reader (FreeStyle Caroline 14 Day [place]) As directed flash glucose sensor (FreeStyle Caroline 14 Day Sensor kit) 1 ea topical Q2W insulin degludec (Tresiba FlexTouch U-200 insulin) 30 units (0.15 mL) subcut BEDTIME 30 days insulin lispro subcut lancets (FreeStyle Lancets) 4 times a day losartan-hydrochlorothiazide 100-12.5 mg 1 tab PO DAILY 90 days pen needle, diabetic (BD Ultra-Fine Isabel Pen Needle) As directed four times a day tirzepatide (Mounjaro) 10 mg (0.5 mL) subcut QWEEK 4 weeks HPI Comments Details: Keshav is here for consultation regarding aortic valve calcification. A recent echocardiogram had shown moderate aortic valve calcification but no dysfunction. Patient himself denies any prior history of coronary disease or myocardial infarction or cardiomyopathy or in fact any other cardiac issues. Morbidly obese. Has diabetes, hypertension and dyslipidemia. He states that he has been getting chest pains for many years now. They happen like a stabbing sensation when he does exercise like treadmill and they resolved with rest. Unclear if it is just musculoskeletal. [facility] Medical History (Updated 04/04/25 @ 13:35 by Francisco Blair MD) Diabetic polyneuropathy associated with type 2 diabetes mellitus Vitamin D deficiency Hypertension Dyslipidemia Diabetic nephropathy associated with type 2 diabetes mellitus group home (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 Brother Past heart attack Social History Household Members: None Housing: Apartment Alcohol intake: never Patient Tobacco Use Status: Never used Tobacco Tobacco use type: Cigarette e-Cigarette/Vaping Use: Never Used Second Hand Smoke Exposure: No service: No Current occupational status: unemployed and disabled Cognitive needs: Yes (cane) Hearing needs: No Vision needs: Yes (reading) Review of Systems Const Denies weakness ENT Denies dizziness Card Reports chest pain, Reports chest pain with activity, Denies syncope, Denies rapid heart rate, Denies pedal edema, Denies edema, Denies leg edema, Denies lightheadedness, Reports palpitations, Reports dyspnea, Reports dyspnea on exertion and Denies orthopnea Resp Denies cough, Reports dyspnea and Reports dyspnea on exertion GI Denies hematochezia and Denies change in stool character Musc Denies abnormal gait, Denies muscle cramps, Denies muscle weakness, Denies numbness, Denies radiating pain into limb and Denies tingling Neuro Denies abnormal gait, Denies dizziness, Denies syncope, Denies numbness, Denies tingling and Denies weakness Endo Reports palpitations Physical Exam Vital Signs: Last Vital Signs Pulse 95 04/04/25 13:19 BP 140/80 H 04/04/25 13:19 BMI result Body Mass Index 54.4 Const General: comfortable and no acute distress Orientation/consciousness: patient oriented x3 HEENT Other: Unremarkable Head: Yes normal to inspection Neck Neck: Yes normal visual inspection Chest Chest palpation & inspection: normal inspection of the chest Resp Auscultation: clear to auscultation bilaterally Cardio Palpation: normal PMI Heart sounds: S1 normal heart sound present, S2 normal heart sound present, no gallops, no murmurs and no rubs GI Palpation (GI): Soft to palpation Back/Spine/Pelvis Other: unremarkable Skin General skin exam: no rashes or lesions noted Neuro General: patient oriented x3 Extrem General: Yes normal to inspection Psych Mental Status: mental status grossly normal Office Procedures EKG Details: EKG with underlying sinus rhythm at 95/Min; no clear ischemic changes; [place] [id number], Complete Assessment & Plan Assessment & Plan (1) Aortic valve calcification: Code(s): I35.9 - Nonrheumatic aortic valve disorder, unspecified Category: Medical Plan: Echocardiogram images and report reviewed. Aortic valve has calcification. Possible bicuspid valve. No significant stenosis or dysfunction. Findings discussed with patient. This needs periodic monitoring only at this time. Eventually, may develop aortic stenosis and we will address that accordingly. (2) Precordial chest pain: Code(s): R07.2 - Precordial pain Category: Medical Plan: Has been present for many years. Unclear if it is just musculoskeletal. Anginal also possible considering his risk factors. We will get a coronary CTA. There is no clear contrast allergy, but vomiting mentioned as reaction to iodine. However patient does not recall this. Any case, we may use allergy prep before contrast. Plan I discussed with the patient that his ultrasound shows calcium buildup on his aortic valve, but reassured him that it is still functioning fine and is a slow process that will be monitored over time. I explained that his chronic chest pain, in the context of his diabetes, blood pressure, cholesterol, and weight, requires further investigation for a possible heart blockage. I informed him that a cardiac CTA is planned to investigate this. We discussed his noted iodine allergy, which he believes may be inaccurate. I advised that we can provide pre-medication as a safety precaution before the scan. I reviewed his EKG with him, noting that it appeared okay, which he found reassuring. I advised him he will be fine and should follow up in 3 months after the scan. Patient was informed and verbally consented to the use of an ambient scribe for clinic note documentation during this visit. She is to hold [facility] Cardiology she speaks Setswana Orders: Orders CT Cardiac Coronary Angio Today I25.10 - Atherosclerotic heart disease of [place] coronary artery without angina pectoris, R07.2 - Precordial pain Basic Metabolic Panel Today R07.2 - Precordial pain Patient Instructions: - A CT scan of your heart (Coronary CTA) will be scheduled to check for any blockages. - To be safe, we may give you medication before your CT scan to prevent a possible allergic reaction to the contrast dye. - The calcium buildup on your heart valve is not an immediate problem and will be monitored over time. - Your EKG today was normal. - Please schedule a follow-up appointment in 3 months to review your test results. Coding Level of Care Code New Pt Level 4 (68875) Add On Problem Visit Only Diagnoses Aortic valve calcification I35.9 Precordial chest pain R07.2 CPT Codes EKG - CPT: 90879-[id number], Complete ([id number])
[2025-04-04 13:19] VITALS: BP 140/80; PULSE 95; BMI 54.4
--- OUTSIDE RECORDS SUMMARY | 2025-04-04 15:14 | XMS_ITS | Clinical Summary ---
Author Organization [facility] Address [address] [facility] [address] [place] [phone] Phone Care Team Providers Care Audio Visual Arts Director Name Role Phone Hair Yang Primary Care [...] He had a hemoglobin A1c done at [facility] we requested this. We could not repeat a [id number] hemoglobin A1c because it was done within [...] regular pharmacy so I sent it to [facility]. Sometimes patient has better luck [...] & Plan (06/25/2023 1:36 PM EDT): Uncontrolled. Uddvj-ie-ypou hemoglobin A1c is Family History Medical History Relation Comments Heart [...] Description 04/06/2025 11:50 AM EST Office Visit [facility] [address] [place] [id number] Surendra Pimentel DO [address] [place] [id number] [email or web address] Health Maintenance Due Date Last Done Comments [...] 06/25/2023 INFLUENZA VACCINE (#1) 2024 COVID-19 VACCINE (1 - 2024- season) 2024 HEMOGLOBIN A1C 02/23/2025 08/23/2024, 02/04/2024, 02/12/2024, Additional history exists POTASSIUM LEVEL 05/18/2025 [...] LAB BLOOD BKR ORDERABLES Final R esult [facility] [address] [place] [address] * (ABNORMAL) POCT Hemoglobin A1c (08/23/2024 1:13 PM EDT) Hemoglobin A1c 6.4(A) 4.2 - 5.6 % Other 08/23/2024 1:13 PM EDT Surendra Richeyasio DO LAB POCT ENTER/EDIT ORDERABLES F inal Result from Last 3 Months or Most Recently Relevant to Health Maintenance [place] [address] [address] [place] [address] [address] [place] [id number] [place] [address] [address] [place] [id number] [place] [address] [place] [id number] [place] [address] [place] [id number] [place] [address] [place] [id number] [place] [address] [place] [address] Care Teams Audio Visual Arts Director Relationship Specialty Start Date End Date Hair Yang PA [address] [place] [phone] PCP - General Physician Pharmaceutical Engineer 12/07/24 Additional Source Comments The information contained in this document represents components of the legal health record. It is not the complete legal health record.[facility]
--- OUTSIDE RECORDS SUMMARY | 2025-04-04 15:14 | XMS_ITS | Clinical Summary ---
Author Organization [facility] Address [address] [facility] [address] [place] [address] Phone Care Team Providers Care Product Safety Tester Name Role Phone Ernesto Salter MD Primary Care Provider [phone] Allergies Active Allergy Reactions Criticality Noted Date [...] INCREASED 09/07/19 23 Active [facility] [place] 2 % aerosol APPLY TOPICALLY DAILY FOR [...] with health care provider. DIAGNOSTIC USE: The [place] Diabetes [employer] (ADA) and the World Health [...] Supplement 1 Testing performed or reported by [facility], a Service of [facility], [address] [place] [address] Samm Alejandre MD, Window Systems Administrator [facility]# [id number] 10/09/2022 9:11 AM EDT 10/09/2022 9:18 AM EDT us Rafa Mosley MD LAB BLOOD ORDERABLES Final Re sult [facility] from Last 3 Months or Most Recently Relevant to Health Maintenance Insurance Medicaid Medicaid Care Teams Product Safety Tester Relationship Specialty Start Date End Date Ernesto Salter MD [address] [place], [place] PCP - General Internal Medicine 10/11/21
--- OUTSIDE RECORDS SUMMARY | 2025-04-04 15:14 | XMS_ITS | Clinical Summary ---
Author Organization [address] [facility] Address [address] [place] [address] Phone Care Team Providers Care Forest Ranger Technician Name Role Phone Abraham Esteban DO Primary Care Provider [phone] Allergies Active Allergy Reactions Criticality Noted Date [...] Encounters Date Type Department Care Team Description 02/21/2025 10:45 AM EST Office Visit Orthopedic Surgery [facility] [address] [facility] [address] [place] [address] Burke Barron DPM Controlled type 2 diabetes with neuropathy ([facility] V24, [facility] V28) (Primary Dx); Venous stasis dermatitis of both lower extremities; Arthritis of both feet; Dermatophytosis, nail from Last 3 Months Surgical History Surgery Date Site/Laterality Comments OTHER SURGICAL HISTORY 01/17/2016 PROCEDURE: HISTORY OTHER; COMMENT: Endovascular ablation Medical History Medical History Date Comments Chronic venous insufficiency 06/27/2020 DX: Chronic venous insufficiency Type 2 diabetes mellitus wit h hyperosmolarity, uncontrolled ([facility] V24, [facility] V28) DX:Type 2 diabetes mellitus with hyperosmolarity, uncontrolled (HCC) Diabetic neuropathy ([facility] V24, [facility] V28) DX:Diabetic neuropathy (HCC) Dyslipidemia DX:Dyslipidemia Hypertension DX:Hypertension Microalbuminuria DX:Microalbumin uria Morbid obesity due to excess calories ([facility] V24, [facility] V28) DX:Morbid obesity due to ex cess calories ([facility]) Vitamin D deficiency DX:Vitamin D deficiency [...] Care Team (Late st Contact Info) Description 05/25/2025 10:45 AM EST Office Visit Orthopedic Surgery - [place] [address] [phone] Burke Barron DPM [address] [facility] [address] [place] [address] Health Maintenance Due Date Last Done Comments Colorectal Cancer Screening: Colonoscopy 1965 Diabetes: Annual Foot Exam 12/25/1973 Diabetes: Annual Retina Eye Exam 12/25/1973 Pneumococcal Vaccine: 50+ Years (1 of 2 - PCV) 12/25/1982 RSV Immunization Adult Patients (1 - Risk 50-74 years 1-dose series) 12/25/2013 Zoster Vaccines (1 of 2) 12/25/2013 HIV Screening 03/05/2022 Hepatitis C Screening 03/05/2022 Social Influencers of Health Screening 03/05/2022 Depression Screening 04/07/2024 COVID-19 Vaccine (1 - 2024-2 6 season) 2024 Influenza Vaccine (#1) 2024 Diabetes: Blood Sugar Contro l Test (HGBA1C) 02/23/2025 08/23/2024, 11/11/2023, 10/09/2022 Diabetes: Annual Urine Albumin-Creatinine Ratio (uACR) 11/29/2025 11/29/2024, 11/11/2023, 11/11/2023 Diabetes: Annual GFR (Glomerular Filtration Rate) 11/29/2025 11/29/2024, 05/18/2024 Hypertension/CHF/CAD Annual BMP Blood Test 11/29/2025 11/29/2024, 05/18/2024 Cholesterol Screening (Lipid Panel) 11/10/2028 11/11/2023 [...] (11/11/2023) HM Urine Albumin Creatinine Ratio abstracted [facility] Provider MD HEALTH MAINTENANCE Final Result * Hemoglobin A1c (11/11/2023) Pathologist [facility] Hemoglobin A1C 0.0 % Comment:no interpretation, a bstracted Blood Venous blood specimen / Unknown Result [facility] Provider LAB BLOOD ORDERABLES Anita l Result * Lipid panel (11/11/2023) LDL/HDL Ratio 0 Comment:no interpretation, a bstracted Triglycerides 0 mg/dL Comment:no interpretation, a bstracted Cholesterol 0 mg/dL Comment:no interpretation, a bstracted HDL 0 mg/dL Comment:no interpretation, a bstracted LDL Cholesterol 0 mg/dL Comment:no interpretation, a bstracted Blood Venous blood specimen / Unknown Result [facility] Provider LAB BLOOD ORDERABLES Anita l Result from Last 3 Months or Most Recently Relevant to Health Maintenance Insurance [facility] [facility] Care Teams Forest Ranger Technician Relationship Specialty Start Date End Date Abraham Esteban DO [address] [place] [address] PCP - General 01/19/16
== END 2025-04-04 13:44 | disposition home or self-care (01) ==
LOC: HO.HCS 13:15
PROVIDERS: PCP Physician Assistant; Visit Provider Internal Medicine
DX: I35.9 Nonrheumatic aortic valve disorder, unspecified (principal); R07.2 Precordial pain
CPT/HCPCS: 93010; 99214

== ENCOUNTER → 2025-04-04 13:14 | Outpatient (BNVA) | payer OTHER, SELFPAY | PROVIDERS: PCP Physician Assistant; Visit Provider Internal Medicine | DX: I35.9 Nonrheumatic aortic valve disorder, unspecified (principal); R07.2 Precordial pain; E11.9 Type 2 diabetes mellitus without complications; I10 Essential (primary) hypertension | CPT/HCPCS: 93005; 99212 ==